=== PATIENT | male | born 1975 | race Caucasian/White ===

== ENCOUNTER 2017-06-12 09:34 | Inpatient (IN) | payer OTHER ==
[2017-06-12] MEDS ORDERED: HYDROmorphone 1 MG/ML 1 ML SYRINGE IVP STA (10:07)
[2017-06-12] MEDS ORDERED: IV VANCOMYCIN PER PHARMACY 1 EACH MISC MISCELLANE PRN (10:07)
[2017-06-12] MEDS ORDERED: ONDANSETRON 4 MG/2 ML VIAL IVP STA (10:07)
[2017-06-12] MEDS ORDERED: SODIUM CHLORIDE 0.9% 1,000 ML IV STA ×2 (10:07)
[2017-06-12] MEDS ORDERED: VANCOMYCIN 1,500 MG in SODIUM CHLORIDE 0.9% 250 ML IVPB STA (10:15)
[2017-06-12 10:48] LABS: Basophils # (A) 0.1 k/uL (0-0.2); Basophils % (A) 0 %; CH 31.7; CHCM 33.6; Eosinophils # (A) 0.1 k/uL (0-0.7); Eosinophils % (A) 0 %; HCT 43.4 % (39.0-53.0); HDW 2.19; HGB 14.5 gm/dL (13.0-17.5); Luc # (Auto) 0.16; Luc % (Auto) 1; Lymphocytes # (A) 1.1 k/uL (1.0-4.8); Lymphocytes % (A) 5 %; MCH 31.5 pg (25.0-35.0); MCHC 33.3 g/dL (31.0-37.0); MCV 94.6 fL (80.0-100.0); Mean Platelet Volume 8.3; Monocytes # (A) 0.7 k/uL (0-1.0); Monocytes % (A) 3 %; Neutrophils # (A) 19.8 k/uL (1.3-7.7); Neutrophils % (A) 90 %; RBC 4.59 m/uL (4.30-5.90); RDW 13.1 % (11.5-15.5); WBC 21.9 k/uL (3.8-10.6); WBC (Perox) 20.54
[2017-06-12] MEDS ORDERED: NALOXONE 0.4 MG/ML 1 ML VIAL IV PRN (10:53)
[2017-06-12] MEDS ORDERED: ONDANSETRON 4 MG/2 ML VIAL IVP PRN (10:53)
--- NOTE | 2017-06-12 10:53 | ED ---
General Adult HPI - General Chief complaint: Skin/Abscess/Foreign Body Stated complaint: bug bite infection Time Seen by Provider: 06/12/17 09:46 Source: patient, RN notes reviewed Mode of arrival: ambulatory Limitations: no limitations - History of Present Illness Initial comments: Patient is a 42-year-old male who presents emergency room today with chief complaint of infection to the right lower leg. He does admit that started for 5 days ago as a small what appeared to be pimple to the right side. He states tried to pop this. States became more inflamed swollen. He states he went to [facility] 2 days ago had all shots obtained which was negative. He states he was started on antibiotics clindamycin. He states that it has gotten worse. He states there is more swelling and now some drainage coming from the wound area. Patient admits to pain locally. He denies any other complaints symptoms. Patient denies any recent fever, chills, shortness of breath, chest pain, back pain, abdominal pain, nausea or vomiting, numbness or tingling, dysuria or hematuria, constipation or diarrhea, headaches or visual changes, or any other complaints. - Related Data Home Medications Medication Instructions Recorded Confirmed Acetaminophen [Tylenol Extra 2,000 mg PO DAILY PRN 06/12/17 06/12/17 Strength] Clindamycin HCl [Cleocin] 150 mg PO TID 06/12/17 06/12/17 Ibuprofen [Motrin] 600 mg PO Q4HR PRN 06/12/17 06/12/17 Allergies Allergy/AdvReac Type Severity Reaction Status Date / Time No Known Allergies Allergy Verified 06/12/17 10:45 Review of Systems ROS Statement: Those systems with pertinent positive or pertinent negative responses have been documented in the HPI. ROS Other: All systems not noted in ROS Statement are negative. Past Medical History Past Medical History: GERD/Reflux Additional Past Medical History / Comment(s): back pain History of Any Multi-Drug Resistant Organisms: None Reported Past Surgical History: No Surgical Hx Reported Past Psychological History: No Psychological Hx Reported Smoking Status: Current every day smoker Past Alcohol Use History: Occasional Past Drug Use History: None Reported General Exam - General Exam Comments Initial Comments: General: The patient is awake and alert, in no distress, and does not appear acutely ill. Eye: Pupils are equal, round and reactive to light, extra-ocular movements are intact. No nystagmus. There is normal conjunctiva bilaterally. No signs of icterus. Ears, nose, mouth and throat: There are moist mucous membranes and no oral lesions. Neck: The neck is supple, there is no tenderness or JVD. Cardiovascular: There is a regular rate and rhythm. No murmur, rub or gallop is appreciated. Respiratory: Lungs are clear to auscultation, respirations are non-labored, breath sounds are equal. No wheezes, stridor, rales, or rhonchi. Musculoskeletal: Normal ROM, no tenderness. Strength 5/5. Sensation intact. Pulses equal bilaterally 2+. Neurological: A&O x 3. CN II-XII intact, There are no obvious motor or sensory deficits. Coordination appears grossly intact. Speech is normal. Skin: He does have moderate swelling to the right lower extremity. There is an ulcerated area to the lateral aspect of the right calf. There is some purulent drainage coming from the site. There is firm on patient. Increased warmth and tenderness on exam. Psychiatric: Cooperative, appropriate mood & affect, normal judgment. Limitations: no limitations Course Vital Signs 06/12/17 06/12/17 09:36 10:28 Temperature 99.8 F H Pulse Rate 98 97 Respiratory 20 18 Rate Blood Pressure 142/84 137/78 O2 Sat by Pulse 98 98 Oximetry Medical Decision Making - Medical Decision Making Patient has been on antibiotics: Mycins the past 2 days with no improvement. He states symptoms are increasing getting worse. Patient will be started on vancomycin here in emergency room. There is no sign of sepsis. Case discussed in detail with attending physician Dr. Santiago. Disposition Clinical Impression: Cellulitis and abscess of leg Disposition: ADMITTED IP TO THIS HOSP Condition: Stable Referrals: None,Stated [Primary Care Provider] - 1-2 days Time of Disposition: 10:42
[2017-06-12 11:02] LABS: ALT 39 U/L (21-72); AST 22 U/L (17-59); Alkaline Phosphatase 108 U/L (38-126); Anion Gap 8 mmol/L; Blood Urea Nitrogen 25 mg/dL (9-20); Calcium 9.2 mg/dL (8.4-10.2); Carbon Dioxide 26 mmol/L (22-30); Chloride 104 mmol/L (98-107); Glucose 95 mg/dL (74-99); Non-African American GFR(MDRD) >60 (>60 ml/min/1.73 sqM); Potassium 4.4 mmol/L (3.5-5.1); Sodium 138 mmol/L (137-145); Total Bilirubin 1.2 mg/dL (0.2-1.3); Total Protein 7.1 g/dL (6.3-8.2)
[2017-06-12] MEDS: HYDROcodone/APAP 5-325MG 1 EACH TAB PO PRN (11:37)
[2017-06-12] MEDS ORDERED: CALCIUM CARBONATE 500 MG CHEWABLE PO PRN (13:43)
[2017-06-12] MEDS: HYDROmorphone 1 MG/ML 1 ML SYRINGE IV PRN ×4 (13:59→22:09)
[2017-06-12] MEDS: ACETAMINOPHEN TAB 325 MG TAB PO PRN (15:23)
[2017-06-12] MEDS ORDERED: SODIUM CHLORIDE 0.9% 2,000 ML IV ONE (15:38)
[2017-06-12] MEDS ORDERED: RX INFO: IV CONTRAST WAS GIVEN 1 EACH MISC MISCELLANE PRN (15:45)
[2017-06-12] MEDS: SODIUM CHLORIDE 0.9% 1,000 ML IV SCH ×3 (15:52→21:05)
[2017-06-12] MEDS ORDERED: ACETAMINOPHEN TAB 325 MG TAB PO STA (15:53)
--- NOTE | 2017-06-12 17:09 | CT ---
EXAMINATION TYPE: CT lower extremity RT w con DATE OF EXAM: 06/12/2017 COMPARISON: NONE HISTORY: Open wound with swelling and redness to right tib-fib. CT DLP: 832.1 mGycm Automated exposure control for dose reduction was used. CONTRAST: Performed with IV Contrast, patient injected with 100 mL of Omnipaque 300. FINDINGS: Multiple axial sections were obtained from the distal femur to the bottom of the calcaneus with intra venous contrast. There is subcutaneous edema throughout the right lower leg. This extends to the lateral ankle. I see no focal bone destruction. There is no evidence of a fracture. The tibia and fibula appear inta ct. Joint spaces are fairly normal. I see no pathologic enhancement. IMPRESSION: EXTENSIVE SUBCUTANEOUS EDEMA. NO DISCRETE DRAINABLE FLUID COLLECTION SEEN. I DO NOT SEE EVIDENCE OF A N ABSCESS. THIS IS CONSISTENT WITH CELLULITIS. NO SIGN OF OSTEOMYELITIS.
[2017-06-12] MEDS: PIPERACILLIN-TAZOBACTAM 3.375 GM in DEXTROSE/WATER 1 50ML.BAG IVPB SCH ×2 (17:11→23:55)
[2017-06-12] MEDS: IBUPROFEN 600 MG TAB PO PRN (17:11)
[2017-06-12] MEDS: ALPRAZolam 0.25 MG TAB PO PRN (17:29)
[2017-06-12] MEDS: VANCOMYCIN 1,250 MG in SODIUM CHLORIDE 0.9% 250 ML IVPB SCH (18:11)
[2017-06-12 19:31] LABS: Basophils # (A) 0.1 k/uL (0-0.2); Basophils % (A) 0 %; CHCM 32.8; Eosinophils # (A) 0.3 k/uL (0-0.7); Eosinophils % (A) 1 %; HCT 40.5 % (39.0-53.0); HDW 2.13; HGB 13.4 gm/dL (13.0-17.5); Immature Gran Flag Marked; Luc # (Auto) 0.24; Luc % (Auto) 1; Lymphocytes # (A) 1.6 k/uL (1.0-4.8); Lymphocytes % (A) 7 %; MCH 31.5 pg (25.0-35.0); MCHC 33.1 g/dL (31.0-37.0); MCV 94.9 fL (80.0-100.0); Mean Platelet Volume 7.5; Monocytes # (A) 0.8 k/uL (0-1.0); Monocytes % (A) 4 %; Neutrophils % (A) 87 %; RBC 4.26 m/uL (4.30-5.90); RDW 12.5 % (11.5-15.5); WBC 21.9 k/uL (3.8-10.6); WBC (Perox) 23.44
[2017-06-12 19:42] LABS: ALT 27 U/L (21-72); AST 21 U/L (17-59); Alkaline Phosphatase 96 U/L (38-126); Anion Gap 7 mmol/L; Blood Urea Nitrogen 17 mg/dL (9-20); Calcium 8.2 mg/dL (8.4-10.2); Carbon Dioxide 22 mmol/L (22-30); Chloride 105 mmol/L (98-107); Glucose 94 mg/dL (74-99); Non-African American GFR(MDRD) >60 (>60 ml/min/1.73 sqM); Potassium 4.4 mmol/L (3.5-5.1); Sodium 134 mmol/L (137-145); Total Bilirubin 0.6 mg/dL (0.2-1.3)
[2017-06-12 19:51] LABS: Manual Review Performed
[2017-06-12 19:52] LABS: INR 1.2 (<1.2); Partial Thromboplastin Time 30.8 sec (22.0-30.0); Prothrombin Time 12.2 sec (9.0-12.0)
[2017-06-12] MEDS: HEPARIN SODIUM,PORCINE 5,000 UNIT/ML 1 ML VIAL SQ SCH (19:59)
[2017-06-12] MEDS: NICOTINE 21MG/24HR PATCH TRANSDERM SCH (19:59)
[2017-06-12 20:10] LABS: Appearance,Urine Clear (Clear); Bilirubin,Urine 1+ (Negative); Glucose,Urine (UA) Negative (Negative); Ketones,Urine Negative (Negative); Leukocyte Esterase,Urine Negative (Negative); Nitrite,Urine Negative (Negative); Protein,Urine Negative (Negative); Specific Gravity,Urine 1.022 (1.001-1.035); UA Billing (MACRO vs. MICRO) CHEM; Urobilinogen,Urine <2.0 mg/dL (<2.0)
[2017-06-13] MEDS: HYDROcodone/APAP 5-325MG 1 EACH TAB PO PRN ×7 (00:02→22:56)
[2017-06-13] MEDS: PANTOPRAZOLE 40 MG TABLET PO SCH ×3 (00:35→19:58)
[2017-06-13] MEDS: HYDROmorphone 1 MG/ML 1 ML SYRINGE IV PRN ×8 (01:30→23:34)
[2017-06-13] MEDS: SODIUM CHLORIDE 0.9% 1,000 ML IV SCH ×4 (01:31→21:38)
[2017-06-13] MEDS: ACETAMINOPHEN TAB 325 MG TAB PO PRN ×2 (03:42→21:36)
[2017-06-13] MEDS: VANCOMYCIN 1,250 MG in SODIUM CHLORIDE 0.9% 250 ML IVPB SCH ×2 (05:55→18:00)
[2017-06-13 06:00] LABS: Basophils # (A) 0.1 k/uL (0-0.2); Basophils % (A) 0 %; CH 31.3; CHCM 32.3; Eosinophils # (A) 0.2 k/uL (0-0.7); Eosinophils % (A) 1 %; HCT 40.7 % (39.0-53.0); HDW 2.13; HGB 13.1 gm/dL (13.0-17.5); Luc % (Auto) 1; Lymphocytes # (A) 1.9 k/uL (1.0-4.8); Lymphocytes % (A) 8 %; MCH 31.4 pg (25.0-35.0); MCHC 32.2 g/dL (31.0-37.0); MCV 97.4 fL (80.0-100.0); Mean Platelet Volume 8.5; Monocytes # (A) 0.9 k/uL (0-1.0); Monocytes % (A) 4 %; Neutrophils # (A) 19.8 k/uL (1.3-7.7); Neutrophils % (A) 85 %; RBC 4.18 m/uL (4.30-5.90); RDW 13.5 % (11.5-15.5); WBC 23.3 k/uL (3.8-10.6); WBC (Perox) 23.36
[2017-06-13 06:12] LABS: Anion Gap 7 mmol/L; Blood Urea Nitrogen 14 mg/dL (9-20); Calcium 8.5 mg/dL (8.4-10.2); Carbon Dioxide 19 mmol/L (22-30); Chloride 109 mmol/L (98-107); Glucose 84 mg/dL (74-99); Non-African American GFR(MDRD) >60 (>60 ml/min/1.73 sqM); Potassium 4.5 mmol/L (3.5-5.1); Sodium 135 mmol/L (137-145)
--- NOTE | 2017-06-13 08:07 | HP ---
DATE OF SERVICE: 06/12/2017 CHIEF COMPLAINTS: Pain and swelling and cellulitis of the right leg. HISTORY OF PRESENT ILLNESS: This 42-year-old gentleman with past medical history of gastroesophageal reflux disease, DJD, history of back pain not being followed by primary physician in the outpatient setting, working in [employer]. The patient noted pain and swelling in the right leg and patient went to local doctor and was given antibiotics. Because of lack of improvement the patient came to [facility] and admitted for further evaluation and treatment. The patient had shaking chills. The patient also was found to be febrile at 101.8. There is no history of history of headache, loss of consciousness or seizures. PAST MEDICAL HISTORY: History of DJD, gastroesophageal reflux disease, history of nicotine dependence. Medications prior to admission include home medications: 1. Cleocin 150 mg t.i.d. 2. Tylenol 2000 daily p.r.n 3. Motrin 600 mg q.4 p.r.n ALLERGIES: None. FAMILY HISTORY: No history of heart disease or strokes in the family. SOCIAL HISTORY: History of smoking on a daily basis. REVIEW OF SYSTEMS: ENT: No diminished hearing or vision. CARDIOVASCULAR: No angina. RESPIRATORY: No cough. GI: No nausea. : No dysuria. NERVOUS SYSTEM: No numbness or weakness. ALLERGY/IMMUNOLOGY: No asthma or hayfever. MUSCULOSKELETAL: As mentioned earlier. HEMATOLOGY/ONCOLOGY: No history of anemia. ENDOCRINE: No history of diabetes or hypothyroidism. CONSTITUTIONAL: As mentioned earlier. DERMATOLOGY: Negative. RHEUMATOLOGY: Negative. PSYCHIATRY: As mentioned earlier. PHYSICAL EXAMINATION: The patient is alert and oriented x3. Pulse is 99, blood pressure 118/77, respirations 16, temperature 99.5, T-max 101.8, pulse ox 97% on room air. HEENT: Conjunctivae normal. NECK: No jugular venous distention. CARDIOVASCULAR: S1, S2. RESPIRATORY: Breath sounds diminished at the bases. No rhonchi, no crackles. ABDOMEN: Soft, nontender, no mass palpable. LEGS: Right leg cellulitis and abscess present. NERVOUS SYSTEM: No focal deficits. LABS: WBC 212, hemoglobin 14.5. ASSESSMENT: 1. Acute right leg cellulitis and as well as abscess with sepsis. 2. Increased WBC. 3. History of nicotine dependence. 4. History of gastroesophageal reflux disease. 5. History of degenerative joint disease. 6. History of back pain. RECOMMENDATIONS AND DISCUSSION: In this 42-year-old gentleman who presented with multiple complex medical issues, we will continue the current medications. Continue symptomatic treatment. Broad-spectrum IV antibiotics, pain medications , IV fluids. Monitor closely. Cultures. Orthopedic and Infectious Disease evaluation. CT scan has been ordered. Guarded prognosis because of multiple complex medical issues. Further recommendations to follow. [facility]
[2017-06-13] MEDS: NICOTINE 21MG/24HR PATCH TRANSDERM SCH (08:18)
[2017-06-13] MEDS: HEPARIN SODIUM,PORCINE 5,000 UNIT/ML 1 ML VIAL SQ SCH ×2 (08:20→19:58)
--- NOTE | 2017-06-13 08:57 | P.CNOR ---
History of Present Illness - HPI Consult date: 06/13/17 History of present illness: This is a 42-year-old male who is admitted to [facility] with infection to his right lower extremity. He states that on Saturday, June 07 he noticed a pimple-like lesion on the lateral aspect of his right lower leg just below the knee. He states that he did express some purulent material from this area. He states that the next day he had increased swelling and tenderness. He was seen in the emergency department at [facility]. He was placed on antibiotic and discharged home. He states that his symptoms became progressively worse over the next couple of days. 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 He presented to the emergency department yesterday. He is admitted for IV antibiotics as well as orthopedic and infectious disease evaluation. Past Medical History Past Medical History: GERD/Reflux, Osteoarthritis (OA) Additional Past Medical History / Comment(s): back pain History of Any Multi-Drug Resistant Organisms: None Reported Past Surgical History: No Surgical Hx Reported Additional Past Surgical History / Comment(s): Colonoscopy x2 and EGD Past Psychological History: No Psychological Hx Reported Smoking Status: Current every day smoker Past Alcohol Use History: Occasional Past Drug Use History: None Reported - Past Family History Mother History Unknown: Yes Medications and Allergies Home Medications Medication Instructions Recorded Confirmed Type Acetaminophen [Tylenol Extra 2,000 mg PO DAILY PRN 06/12/17 06/12/17 History Strength] Clindamycin HCl [Cleocin] 150 mg PO TID 06/12/17 06/12/17 History Ibuprofen [Motrin] 600 mg PO Q4HR PRN 06/12/17 06/12/17 History Allergies Allergy/AdvReac Type Severity Reaction Status Date / Time No Known Allergies Allergy Verified 06/12/17 10:45 Physical Examination This is a pleasant 42-year-old male in no acute distress. He is alert and oriented 3. His is present at bedside. Exam of the right lower extremity reveals a wound about the lateral aspect of the lower leg just distal to the knee joint. He has significant erythema and generalized edema to the lower leg, which extends up into the knee and thigh. There is no obvious joint effusion. He does have some pain with knee flexion secondary to the swelling in the thigh and lower leg. There is no active drainage from the wound at this time. There is significant pain with palpation of the calf and lower leg. He has full foot and ankle motion without difficulty. Neurovascular status to the lower extremity is grossly intact. Results Microbiology is pending, preliminary Gram stain shows gram-positive cocci. - Labs Labs: Abnormal Lab Results - Last 24 Hours (Table) 06/12/17 06/12/17 06/12/17 Range/Units 10:30 10:30 19:14 WBC 21.9 H 21.9 H (3.8-10.6) k/uL RBC 4.26 L (4.30-5.90) m/uL Neutrophils # 19.8 H 19.0 H (1.3-7.7) k/uL PT (9.0-12.0) sec INR (<1.2) APTT (22.0-30.0) sec Sodium (137-145) mmol/L Chloride (98-107) mmol/L Carbon Dioxide (22-30) mmol/L BUN 25 H (9-20) mg/dL Calcium (8.4-10.2) mg/dL Total Protein (6.3-8.2) g/dL Albumin (3.5-5.0) g/dL Urine Bilirubin (Negative) 06/12/17 06/12/17 06/12/17 Range/Units 19:14 19:14 19:55 WBC (3.8-10.6) k/uL RBC (4.30-5.90) m/uL Neutrophils # (1.3-7.7) k/uL PT 12.2 H (9.0-12.0) sec INR 1.2 H (<1.2) APTT 30.8 H (22.0-30.0) sec Sodium 134 L (137-145) mmol/L Chloride (98-107) mmol/L Carbon Dioxide (22-30) mmol/L BUN (9-20) mg/dL Calcium 8.2 L (8.4-10.2) mg/dL Total Protein 6.0 L (6.3-8.2) g/dL Albumin 3.0 L (3.5-5.0) g/dL Urine Bilirubin 1+ H (Negative) 06/13/17 06/13/17 Range/Units 05:31 05:31 WBC 23.3 H (3.8-10.6) k/uL RBC 4.18 L (4.30-5.90) m/uL Neutrophils # 19.8 H (1.3-7.7) k/uL PT (9.0-12.0) sec INR (<1.2) APTT (22.0-30.0) sec Sodium 135 L (137-145) mmol/L Chloride 109 H (98-107) mmol/L Carbon Dioxide 19 L (22-30) mmol/L BUN (9-20) mg/dL Calcium (8.4-10.2) mg/dL Total Protein (6.3-8.2) g/dL Albumin (3.5-5.0) g/dL Urine Bilirubin (Negative) Microbiology - Last 24 Hours (Table) 06/12/17 19:55 Urine Culture - Preliminary Urine,Voided 06/12/17 10:30 Gram Stain - Preliminary Leg - Right Wound Culture - Preliminary H & H 06/12/17 06/12/17 06/13/17 Range/Units 10:30 19:14 05:31 Hgb 14.5 13.4 13.1 (13.0-17.5) gm/dL Hct 43.4 40.5 40.7 (39.0-53.0) % Coagulation 06/12/17 Range/Units 19:14 INR 1.2 H (<1.2) Result Diagrams: 06/13/17 05:31 06/13/17 05:31 Assessment and Plan (1) Cellulitis and abscess of leg Status: Acute Plan: The clinical findings are discussed the patient and his . I've ordered K pad for moist heat today. I will make him nothing by mouth after midnight tonight for possible incision and drainage tomorrow. We will await recommendations by infectious disease. I also ordered a venous Doppler to assess for DVT. We will continue to follow.
--- NOTE | 2017-06-13 09:52 | US ---
EXAMINATION TYPE: US venous doppler duplex LE RT DATE OF EXAM: 06/13/2017 9:31 AM COMPARISON: NONE CLINICAL HISTORY: R/O DVT RLE. Bug bite became infected and patient has fever, with red, hot, swollen right leg, no h/o dvt SIDE PERFORMED: Right TECHNIQUE: The lower extremity deep venous system is examined utilizing real time linear array sonog allison with graded compression, doppler sonography and color-flow sonography. VESSELS IMAGED: External Iliac Vein (EIV) Common Femoral Vein Deep Femoral Vein Greater Saphenous Vein * Femoral Vein Popliteal Vein Small Saphenous Vein * Proximal Calf Veins (* superficial vessels) Right Leg: Appears negative for DVT IMPRESSION: Although the examination is slightly limited due to patient inability to tolerate full c ompression there is no evidence for deep venous thrombosis of the right lower extremity.
[2017-06-13] MEDS: PIPERACILLIN-TAZOBACTAM 3.375 GM in DEXTROSE/WATER 1 50ML.BAG IVPB SCH (11:55)
[2017-06-13] MEDS: IBUPROFEN 600 MG TAB PO PRN (11:59)
[2017-06-13] MEDS: CLINDAMYCIN 900 MG in DEXTROSE 5% IN WATER 50 ML IVPB SCH ×2 (23:34)
[2017-06-14] MEDS: HYDROmorphone 1 MG/ML 1 ML SYRINGE IV PRN ×3 (02:39→08:17)
[2017-06-14] MEDS: SODIUM CHLORIDE 0.9% 1,000 ML IV SCH ×3 (02:45→18:39)
[2017-06-14] MEDS: LACTATED RINGERS 1,000 ML IV SCH (02:45)
[2017-06-14] MEDS ORDERED: VANCOMYCIN TROUGH DUE 1 EACH MISC MISCELLANE ONE (05:00)
[2017-06-14] MEDS ORDERED: fentaNYL (PF) 50 MCG/ML 2 ML AMP IV PRN (05:00)
[2017-06-14] MEDS ORDERED: LIDOCAINE 1% 20 ML VIAL (10MG/ML) FOR IV START INTRADERMA PRN (05:00)
[2017-06-14 06:15] LABS: Basophils # (A) 0.1 k/uL (0-0.2); Basophils % (A) 0 %; CH 30.7; CHCM 32.9; Eosinophils # (A) 0.3 k/uL (0-0.7); Eosinophils % (A) 2 %; HCT 36.1 % (39.0-53.0); HDW 2.23; HGB 12.4 gm/dL (13.0-17.5); Luc # (Auto) 0.24; Luc % (Auto) 2; Lymphocytes # (A) 1.6 k/uL (1.0-4.8); Lymphocytes % (A) 10 %; MCH 32.3 pg (25.0-35.0); MCHC 34.4 g/dL (31.0-37.0); MCV 93.9 fL (80.0-100.0); Mean Platelet Volume 8.4; Monocytes # (A) 0.6 k/uL (0-1.0); Monocytes % (A) 4 %; Neutrophils # (A) 13.7 k/uL (1.3-7.7); Neutrophils % (A) 83 %; RBC 3.85 m/uL (4.30-5.90); RDW 12.5 % (11.5-15.5); WBC 16.4 k/uL (3.8-10.6)
[2017-06-14] MEDS: VANCOMYCIN 1,250 MG in SODIUM CHLORIDE 0.9% 250 ML IVPB SCH ×3 (06:16→22:01)
[2017-06-14 06:21] LABS: Anion Gap 8 mmol/L; Blood Urea Nitrogen 12 mg/dL (9-20); Calcium 8.3 mg/dL (8.4-10.2); Carbon Dioxide 20 mmol/L (22-30); Chloride 107 mmol/L (98-107); Glucose 90 mg/dL (74-99); Non-African American GFR(MDRD) >60 (>60 ml/min/1.73 sqM); Potassium 4.9 mmol/L (3.5-5.1); Sodium 135 mmol/L (137-145)
--- NOTE | 2017-06-14 07:52 | PN ---
DATE OF SERVICE: 06/13/2017 This is a 42-year-old gentleman who was admitted with right leg cellulitis, is being evaluated by Orthopedic Surgery, also. Incision and drainage being planned today. The CAT scan showed no evidence of abscess or osteomyelitis. The patient had evidence of severe sepsis. Ultrasound is negative with DVT. No chest pain or palpitation. PAST MEDICAL HISTORY: Reviewed. REVIEW OF SYSTEM: CARDIOVASCULAR: No angina or palpitation. RESPIRATORY: As mentioned earlier. GI: As mentioned earlier. : No dysuria. NERVOUS SYSTEM: As mentioned earlier. MUSCULOSKELETAL: As mentioned earlier. DERMATOLOGY: As mentioned earlier. Current medications are Tylenol 650 q.6 p.r.n., [place] 5 mg q.4 p.r.n., Xanax 0.5 t.i.d., heparin 5 subQ b.i.d., Dilaudid 4 mg q.3 p.r.n., Motrin p.r.n., vancomycin, Narcan, Habitrol 21 daily, Zofran, Protonix, vancomycin. PHYSICAL EXAM: The patient is alert and oriented x3. Pulse is 106, blood pressure 118/60, respirations 14, temperature 101.2, pulse ox 98% on room air. HEENT: Conjunctivae normal. NECK: No jugular venous distension. CARDIOVASCULAR: S1, S2, muffled. LUNGS: Clear to auscultation. ABDOMEN: Soft, nontender, no mass palpable. LEGS: Right leg significant swelling and pain and tenderness present with a purulent area in the right lateral aspect close to the knee. NERVOUS SYSTEM: Higher functions as mentioned, moves all 4 limbs, no focal motor deficits. LYMPHATICS: No lymph node enlargement in the neck, axillae or groin. LABS: WBC is 23.3, sodium 135. ASSESSMENT: 1. Acute right leg cellulitis with severe sepsis present on admission. 2. Increased WBC. 3. History of nicotine dependence. 4. Gastroesophageal reflux disease. 5. Degenerative disc disease. 6. History of back pain. RECOMMENDATION: Recommend to continue with the current medication, continue with the broad spectrum IV antibiotics. Follow closely with orthopedic surgery. Guarded prognosis. Further recommendations to follow. Follow the cultures. Infectious Disease has been consulted. MERYL
--- NOTE | 2017-06-14 08:33 | P.PN ---
Subjective Principal diagnosis: Cellulitis RLE This is a 42-year-old male with history of a possible insect bite to the right lower leg. His symptoms have progressed since yesterday. He is had increased pain and swelling to the leg which is now extending up into the thigh. He had a temperature of 102 last night. We are planning debridement of the lateral aspect of the lower leg today. Dr. Corey is managing antibiotics. Objective - Vital Signs Vital signs: Vital Signs Temp 99.8 F H 06/14/17 03:09 Pulse 97 06/14/17 03:09 Resp 18 06/14/17 03:09 BP 118/66 06/14/17 03:09 Pulse Ox 99 06/14/17 03:09 Intake & Output 06/13/17 06/14/17 06/14/17 18:59 06:59 18:59 Intake Total 600 1710 Output Total 500 900 Balance 100 810 Weight 75.8 kg 76 kg Intake: IV 1250 Piperacillin-Tazobactam 3 50 .375 gm In Dextrose/Water 1 50ml.bag @ 12.5 mls/hr IVPB Q8HR [facility] Rx#: [id number] Sodium Chloride 0.9% 1, 1200 000 ml @ 150 mls/hr IV . Q6H40M [facility] Rx#:[id number] Intake, IV Titration 160 Amount Clindamycin 900 mg In 100 Dextrose 5% in Water 50 ml @ 100 mls/hr IVPB Q8HR [facility] Rx#:[id number] Lactated Ringers 1,000 ml 60 @ 20 mls/hr IV .Q24H [facility] Rx#:[id number] Oral 600 300 Output: Urine 500 900 Other: # Voids 2 1 # Bowel Movements 1 - Exam This is a 42-year-old male in mild distress due to pain. I am unable to palpate the leg without significant pain. The patient is able to wiggle his toes and move his foot and ankle on his own with minimal discomfort. The area of eschar about the lateral lower leg is a bit larger today. The erythema has extended up into the medial thigh towards the groin. There are no new open wounds and no drainage. He is able to lift the leg off the bed and an actively flex the knee to about 45. The patient is intact to the foot and toes. - Labs CBC & Chem 7: 06/14/17 05:38 06/14/17 05:38 Labs: Abnormal Lab Results - Last 24 Hours (Table) 06/14/17 06/14/17 Range/Units 05:38 05:38 WBC 16.4 H (3.8-10.6) k/uL RBC 3.85 L (4.30-5.90) m/uL Hgb 12.4 L (13.0-17.5) gm/dL Hct 36.1 L (39.0-53.0) % Neutrophils # 13.7 H (1.3-7.7) k/uL Sodium 135 L (137-145) mmol/L Carbon Dioxide 20 L (22-30) mmol/L Calcium 8.3 L (8.4-10.2) mg/dL Microbiology - Last 24 Hours (Table) 06/12/17 19:55 Urine Culture - Final Urine,Voided 06/12/17 19:35 Blood Culture - Preliminary Blood No Growth after 24 hours 06/12/17 19:14 Blood Culture - Preliminary Blood No Growth after 24 hours 06/12/17 10:30 Blood Culture - Preliminary Blood No Growth after 24 hours 06/12/17 10:30 Gram Stain - Preliminary Leg - Right Wound Culture - Preliminary Presumptive MRSA Assessment and Plan (1) Cellulitis and abscess of leg Status: Acute Plan: The clinical findings are discussed the patient and his . He is to continue current IV antibiotics per Dr. Corey. We're planning debridement of the wound this afternoon.
[2017-06-14] MEDS: NICOTINE 21MG/24HR PATCH TRANSDERM SCH (08:39)
[2017-06-14] MEDS: CLINDAMYCIN 900 MG in DEXTROSE 5% IN WATER 50 ML IVPB SCH ×4 (08:39→17:23)
[2017-06-14] MEDS: HEPARIN SODIUM,PORCINE 5,000 UNIT/ML 1 ML VIAL SQ SCH ×2 (08:40→20:24)
[2017-06-14] MEDS: PANTOPRAZOLE 40 MG TABLET PO SCH ×2 (08:40→18:39)
[2017-06-14] MEDS: HYDROcodone/APAP 5-325MG 1 EACH TAB PO PRN ×3 (08:53→22:17)
[2017-06-14] MEDS: ACETAMINOPHEN TAB 325 MG TAB PO PRN ×2 (08:54→20:04)
[2017-06-14] MEDS: MEPERIDINE 50 MG/ML SYRINGE IVP ONE ×2 (09:15→09:20)
--- NOTE | 2017-06-14 09:48 | CONS ---
DATE OF SERVICE: 06/13/2017 REASON FOR CONSULTATION: Right lower extremity cellulitis. HISTORY OF PRESENT ILLNESS: The patient is a 42-year-old male who did develop a pimple on his right leg below his knee area that happened last week. The patient said the pimple becomes bigger in size and becomes more pain. The patient tried to express some purulent material from this area. Subsequently increasing swelling and redness and the patient did present to the [facility] where the patient was started on oral clindamycin. The patient said he took antibiotics for the next few days, however, the leg did become more swollen, more red and painful. Pain was described as being throbbing almost 7 to 8 out of 10 and no radiation. The whole leg becomes red. Patient did have some chills, but denies any high grade fever. With this reason, the patient presented to the [facility]. Patient was evaluated by the ER physician. The patient did have a CT of the leg, which was suggestive of subcutaneous edema, but no drainable abscess. The patient was started on vancomycin and Zosyn. He did have some local wound cultures. I was asked to see the patient for further recommendation regarding antibiotic therapy. REVIEW OF SYSTEMS: CONSTITUTIONAL: Positive for weakness and chills. EYES: No complaint. ENT: No complaint. RESPIRATORY: No complaint. CARDIOVASCULAR: No complaint. GENITOURINARY: No complaint. GASTROINTESTINAL: No complaint. MUSCULOSKELETAL: No complaint. INTEGUMENTARY: As per HPI. PSYCHOLOGICAL: No complaint. ENDOCRINE: No complaint. NEUROLOGIC: No complaint. PAST MEDICAL HISTORY: Gastroesophageal reflux disease, osteoarthritis, chronic back pain. PAST SURGICAL HISTORY: Colonoscopy and EGD. SOCIAL HISTORY: The patient is a current everyday smoker and occasionally drinks. No drug use. FAMILY HISTORY: No pertinent findings were noticed. ALLERGIES: No known drug allergies. Medications include the patient is currently on vancomycin pharmacy to dose. He is on Zosyn, Tylenol, [place], Xanax, Tums, heparin, Dilaudid, Motrin, Narcan, nicotine patch, Zofran, Protonix. On examination, blood pressure is 119/66 with a pulse of 106, temperature 101.2. He is 98% on room air. General description is a middle-age male, lying in bed in no distress. No tachypnea or accessory muscles of respiratory use. HEENT examination showed no pallor or scleral icterus. Oral mucous membranes are dry. NECK: Trachea central. No thyromegaly. LUNGS: Unlabored breathing. Clear to auscultation anteriorly. No wheeze or crackles. HEART: S1 and S2. Regular rate and rhythm. ABDOMEN: Soft, no tenderness. Right leg did have significant swelling and redness with small blister with some blackish surrounding area, minimal drainage. NEUROLOGICALLY: The patient awake, alert, oriented x3. Mood and affect normal. LABS: Hemoglobin is 13.1, white count 23.3 with a BUN 14 and creatinine 0.94. Did have a blood culture obtained, which is currently pending. Wound culture with presumptive MRSA. DIAGNOSTIC IMPRESSION AND PLAN: Patient with sepsis and the patient did have fever, elevated white count, tachycardia and meeting criteria for systemic inflammatory response syndrome. Source is the right lower extremity wound and cellulitis. Failing outpatient clindamycin therapy. PLAN: 1. Vancomycin pharmacy to dose, target of 15, will continue. Will discontinue the Zosyn ( ) gram negative ( ). 2. Await orthopedic evaluation and possible drainage of this area. 3. We will follow up on his clinical condition and culture to further adjust medication if needed. Thank you for this consultation. Will follow this patient along with you. MERYL
--- NOTE | 2017-06-14 10:02 | XR ---
EXAMINATION TYPE: XR tibia fibula RT DATE OF EXAM: 06/14/2017 COMPARISON: NONE HISTORY: Severe cellulitis TECHNIQUE: 2 view right tibia and fibula FINDINGS: No acute fractures are evident. The soft tissues appear within normal limits. No radiopaque foreign bodies are evident. IMPRESSION: 1. Normal right tibia and fibula
[2017-06-14] MEDS ORDERED: IV FLUID CONTINUATION 1,000 ML IV ONE (11:56)
[2017-06-14] MEDS ORDERED: ONDANSETRON 4 MG/2 ML VIAL IVP ONE (12:09)
[2017-06-14] MEDS ORDERED: fentaNYL (PF) 50 MCG/ML 2 ML AMP ONE (12:18)
[2017-06-14] MEDS ORDERED: SUCCINYLCHOLINE CHLORIDE 100 MG/5 ML SYR IV ONE (12:18)
[2017-06-14] MEDS ORDERED: LIDOCAINE 1% INJ 10MG/ML (20 ML MDV) ONE (12:18)
[2017-06-14] MEDS ORDERED: PROPOFOL 10 MG/ML 20 ML VIAL IV ONE (12:18)
[2017-06-14] MEDS ORDERED: MIDAZOLAM 2 MG/2 ML VIAL ONE (12:18)
[2017-06-14] MEDS ORDERED: ceFAZolin 3,000 MG in SODIUM CHLORIDE 0.9% IRRIGATIO 3,000 ML IRRIGATION ONE (12:39)
[2017-06-14] MEDS ORDERED: ONDANSETRON 4 MG/2 ML VIAL IVP PRN (13:05)
[2017-06-14] MEDS ORDERED: HYDROmorphone 1 MG/ML 1 ML SYRINGE IVP PRN (13:05)
[2017-06-14] MEDS ORDERED: SENNOSIDES-DOCUSATE SODIUM 1 EACH TAB PO PRN (13:05)
[2017-06-14] MEDS ORDERED: diphenhydrAMINE 25 MG CAP PO PRN (13:05)
[2017-06-14] MEDS ORDERED: HYDROcodone/APAP 5-325MG 1 EACH TAB PO PRN (13:05)
[2017-06-14] MEDS: HYDROmorphone 1 MG/ML 1 ML SYRINGE IVP PRN ×4 (14:15→23:17)
--- NOTE | 2017-06-14 16:34 | P.OP ---
Date of Procedure: 06/14/17 Preoperative Diagnosis: Postoperative Diagnosis: Procedure(s) Performed: PREOPERATIVE DIAGNOSES: 1. Right leg subcutaneous abscess 2. Lymphangitis along lateral aspect of knee and distal thigh POSTOPERATIVE DIAGNOSES: 1. Right leg subcutaneous abscess 2. Lymphangitis along lateral aspect of knee and distal thigh PROCEDURES PERFORMED: 1. Right leg subcutaneous abscess incision and drainage 2. Packing of wound with moistened iodoform gauze ANESTHESIA: Gen. PUBLIC HEALTH EPIDEMIOLOGIST: Molly Jones PA-C (assistance with exposure, hemostasis, retraction, fixation, closure, dressing, splint) COMPLICATIONS: None ESTIMATED BLOOD LOSS: Less than 20 mL. DISPOSITION: To post-anesthesia care unit INDICATIONS: Harsha is a 42-year-old male with a history of abscess involving the right lower extremity. He presents to the operating room for incision and drainage. Consent has been obtained after discussion of the risks of incision and drainage of this abscess as being inclusive of, but not limited to: Bleeding , further infection, scarring, discomfort, blood vessel and/or nerve damage, compartment syndrome, failure to relieve symptoms, persistence or recurrence and /or worsening of symptoms or problems, need for further surgery, blood clot, pulmonary embolism, , anesthesia risks, and other risks. PROCEDURE: After appropriate consent was obtained, the patient was taken to the operating room placed in the supine position. Anesthesia was initiated, and after confirmation of adequate anesthesia, the patient was carefully positioned. Care was taken to make sure that all pressure points were adequately padded. Prepping and draping were completed in the usual aseptic fashion using ChloraPrep. Timeout was called, confirming patient identity, side , and procedure. Incision approximately 3 inches in size was created along the abscess, which was located on the lateral aspect of the leg. Incision was carried down just through skin and into subcu tissues where was noted that there was gross pus. The gross pus was removed by extending the incision and gently spreading down to the abscess cavity. The abscess cavity was probed with manual palpation until all areas of the abscess cavity were interrogated. Cultures were taken. There did not appear to be any extension of the abscess cavity into the deep muscular fascia. Soft tissue tension visibly and palpably improved after drainage of the abscess. Pulsatile lavage was used, delivering 3 L of saline within the abscess cavity. During this time, small amount of Hibiclens solution was also applied to the wound surface, allowed to soak into the tissues for 1 minute, and then rinsed off using the pulsatile lavage. Subsequently, hemostasis was obtained using electrocautery but there was no significant bleeding present. Wound was lightly packed with moistened half- inch iodoform gauze and sterile dressing was then applied. Patient tolerated the procedure well and taken to recovery room in stable condition. Sponge counts were correct. Implants: Indications for Procedure: Operative Findings: Description of Procedure:
[2017-06-14] MEDS: PIPERACILLIN-TAZOBACTAM 3.375 GM in DEXTROSE/WATER 1 50ML.BAG IVPB SCH (16:36)
--- NOTE | 2017-06-14 18:35 | PN ---
DATE OF SERVICE: 06/14/2017 REASON FOR FOLLOW UP: Right leg abscess and cellulitis. HISTORY OF PRESENT ILLNESS: The patient did have another fever this morning. The patient has been taken to the OR and is status post drainage of the right leg abscess. The patient denies significant chest pain. No shortness of breath or cough. The pain is currently controlled. On examination, blood pressure 139/80 with a pulse of 89, temperature of 101, he is 100% on room air. GENERAL DESCRIPTION: Middle-aged male lying in bed in no distress. RESPIRATORY: Unlabored breathing. Clear to auscultation anteriorly. HEART: S1/S2 regular. ABDOMEN: Soft, nontender. EXTREMITIES: The right leg ( ) dressing. LABS: White count 15.4. BUN 20, creatinine 0.90. One culture showing in addition to MRSA, gram negative bacilli. DIAGNOSTIC IMPRESSION: Patient with right leg abscess, failing outpatient clindamycin therapy. Now the wound culture is showing a gram negative bacilli in addition to the methicillin-resistant Staphylococcus aureus. Will add Zosyn to the vancomycin regimen, discontinue the clindamycin. Further adjustment of antibiotics on the basis of his clinical response. Continue supportive care. MERYL
[2017-06-15] MEDS: PIPERACILLIN-TAZOBACTAM 3.375 GM in DEXTROSE/WATER 1 50ML.BAG IVPB SCH ×2 (00:53→10:11)
[2017-06-15] MEDS: HYDROmorphone 1 MG/ML 1 ML SYRINGE IVP PRN ×7 (02:34→23:27)
[2017-06-15] MEDS: LACTATED RINGERS 1,000 ML IV SCH ×3 (02:39→16:14)
[2017-06-15] MEDS: ALPRAZolam 0.25 MG TAB PO PRN ×2 (04:01→21:33)
[2017-06-15] MEDS: VANCOMYCIN 1,250 MG in SODIUM CHLORIDE 0.9% 250 ML IVPB SCH ×3 (05:19→21:36)
[2017-06-15] MEDS: SODIUM CHLORIDE 0.9% 1,000 ML IV SCH ×3 (05:26→13:26)
[2017-06-15] MEDS: HYDROcodone/APAP 5-325MG 1 EACH TAB PO PRN ×3 (06:37→21:33)
[2017-06-15 07:03] LABS: Basophils % (A) 0 %; CHCM 32.7; Eosinophils # (A) 0.2 k/uL (0-0.7); Eosinophils % (A) 2 %; HCT 35.1 % (39.0-53.0); HDW 2.18; HGB 11.4 gm/dL (13.0-17.5); Luc # (Auto) 0.31; Luc % (Auto) 2; Lymphocytes # (A) 1.7 k/uL (1.0-4.8); Lymphocytes % (A) 12 %; MCH 30.9 pg (25.0-35.0); MCHC 32.5 g/dL (31.0-37.0); Mean Platelet Volume 7.7; Monocytes # (A) 0.8 k/uL (0-1.0); Monocytes % (A) 6 %; Neutrophils # (A) 11.4 k/uL (1.3-7.7); Neutrophils % (A) 79 %; RBC 3.69 m/uL (4.30-5.90); RDW 12.6 % (11.5-15.5); WBC 14.4 k/uL (3.8-10.6); WBC (Perox) 14.39
[2017-06-15 07:27] LABS: Anion Gap 8 mmol/L; Blood Urea Nitrogen 11 mg/dL (9-20); Calcium 7.6 mg/dL (8.4-10.2); Carbon Dioxide 25 mmol/L (22-30); Chloride 104 mmol/L (98-107); Glucose 85 mg/dL (74-99); Non-African American GFR(MDRD) >60 (>60 ml/min/1.73 sqM); Potassium 3.7 mmol/L (3.5-5.1); Sodium 137 mmol/L (137-145)
--- NOTE | 2017-06-15 08:28 | P.PN ---
Subjective Principal diagnosis: Cellulitis RLE Abscess right lower extremity This is a 42-year-old male with history of a possible insect bite to the right lower leg. He is status post incision and drainage with irrigation with antibiotic solution. He is stable from orthopedic standpoint. The patient is threatening to leave AMA since his transfer to the fifth floor. He states that there is no where for his to sleep. Objective - Vital Signs Vital signs: Vital Signs Temp 99.1 F 06/15/17 07:51 Pulse 86 06/15/17 07:51 Resp 18 06/15/17 07:51 BP 111/53 06/15/17 07:51 Pulse Ox 93 L 06/15/17 07:51 Intake & Output 06/14/17 06/15/17 06/15/17 18:59 06:59 18:59 Intake Total 651 1100 Output Total 425 0 Balance 226 1100 Weight 77.5 kg Intake: IV 651 1050 Sodium Chloride 0.9% 1, 800 000 ml @ 150 mls/hr IV . Q6H40M [facility] Rx#:[id number] Vancomycin 1,250 mg In 250 Sodium Chloride 0.9% 250 ml @ 125 mls/hr IVPB Q12H [facility] Rx#:[id number] Intake, IV Titration 50 Amount Piperacillin-Tazobactam 3 50 .375 gm In Dextrose/Water 1 50ml.bag @ 12.5 mls/hr IVPB Q8HR [facility] Rx#: [id number] Output: Urine 400 0 Estimated Blood Loss 25 Other: Voiding Method Urinal # Voids 1 2 # Bowel Movements 0 0 - Exam This is a 42-year-old male in no acute distress. He is alert and oriented 3. Exam the left lower extremity reveals that his dressing is intact but Guanako wrap has been removed. His swelling is improved. Erythema has subsided. He has full foot ankle motion without difficulty or pain. Neurovascular status lower extremities intact. - Labs CBC & Chem 7: 06/15/17 06:48 06/15/17 06:48 Labs: Abnormal Lab Results - Last 24 Hours (Table) 06/14/17 06/14/17 06/15/17 Range/Units 08:30 08:30 06:48 WBC 14.4 H (3.8-10.6) k/uL RBC 3.69 L (4.30-5.90) m/uL Hgb 11.4 L (13.0-17.5) gm/dL Hct 35.1 L (39.0-53.0) % Neutrophils # 11.4 H (1.3-7.7) k/uL ESR 64 H (0-15) mm/hr Calcium (8.4-10.2) mg/dL C-Reactive Protein 326.6 H (<10.0) mg/L 06/15/17 Range/Units 06:48 WBC (3.8-10.6) k/uL RBC (4.30-5.90) m/uL Hgb (13.0-17.5) gm/dL Hct (39.0-53.0) % Neutrophils # (1.3-7.7) k/uL ESR (0-15) mm/hr Calcium 7.6 L (8.4-10.2) mg/dL C-Reactive Protein (<10.0) mg/L Microbiology - Last 24 Hours (Table) 06/14/17 12:47 Gram Stain - Preliminary Leg - Right Wound Culture - Preliminary 06/12/17 19:35 Blood Culture - Preliminary Blood No Growth after 48 hours 06/12/17 19:14 Blood Culture - Preliminary Blood No Growth after 48 hours 06/14/17 12:47 Anaerobic Culture - Preliminary Leg - Right 06/12/17 10:30 Gram Stain - Preliminary Leg - Right Wound Culture - Preliminary Methicillin resist S. aureus Gram Neg Bacilli 06/12/17 10:30 Blood Culture - Preliminary Blood No Growth after 48 hours Assessment and Plan (1) Cellulitis and abscess of leg Status: Acute Plan: The clinical findings are discussed the patient and his . He is to continue current IV antibiotics per Dr. Corey. We're planning surgery on Saturday for repeat I&D and possible secondary closure.
[2017-06-15] MEDS: NICOTINE 21MG/24HR PATCH TRANSDERM SCH (08:48)
[2017-06-15] MEDS: HEPARIN SODIUM,PORCINE 5,000 UNIT/ML 1 ML VIAL SQ SCH (08:49)
[2017-06-15] MEDS: PANTOPRAZOLE 40 MG TABLET PO SCH ×2 (08:49→18:12)
--- NOTE | 2017-06-15 10:51 | PN ---
DATE OF SERVICE: 06/14/2017 This is a 42-year-old gentleman who was admitted with significant cellulitis and infection of the right leg, underwent right leg subcutaneous abscess incision and drainage with a packed wound with moist iodoform gauze by Dr. Aldrich. There is no history of fever, rigors or chills. No history of headaches , loss of consciousness at this time. MRSA is grown from the culture. PHYSICAL EXAM: Patient is alert and oriented x3. Pulse is 105, blood pressure is 135/75, respirations 18, temperature is 101.3, pulse ox 97% on room air. HEENT: Conjunctivae normal. NECK: No jugular venous distension. CARDIOVASCULAR SYSTEM: S1, S2, muffled. RESPIRATORY: Breath sounds diminished at the bases, a few scattered rhonchi, no crackles. ABDOMEN: Soft, nontender. LEGS: Right leg swelling present. NERVOUS SYSTEM: No focal deficits. Status post incision and drainage. LABS: WBC is 16.4, sodium 135, CRP is 326. ASSESSMENT: 1. Acute right leg abscess with cellulitis with severe sepsis present on admission with methicillin-resistant Staphylococcus aureus and gram-negative bacilli. 2. Increased WBC. 3. History of nicotine dependence. 4. Gastroesophageal reflux disease. 5. Degenerative joint disease. 6. History of back pain. RECOMMENDATION: Recommend to continue with the current medication and symptomatic treatment. Continue with the broad spectrum IV antibiotics. Guarded prognosis because of multiple complex medical issues. Further recommendations to follow. See orders for further details. Closely follow with Infectious Disease. MERYL
[2017-06-15] MEDS: TEMAZEPAM 15 MG CAP PO PRN (23:32)
[2017-06-16] MEDS: HEPARIN SODIUM,PORCINE 5,000 UNIT/ML 1 ML VIAL SQ SCH ×3 (03:04→21:27)
[2017-06-16] MEDS: HYDROmorphone 1 MG/ML 1 ML SYRINGE IVP PRN ×6 (03:07→21:54)
[2017-06-16] MEDS: LACTATED RINGERS 1,000 ML IV SCH ×4 (03:10→17:51)
[2017-06-16 05:56] LABS: Basophils % (A) 0 %; CH 31.2; CHCM 32.7; Eosinophils # (A) 0.3 k/uL (0-0.7); Eosinophils % (A) 3 %; HCT 37.1 % (39.0-53.0); HDW 2.24; HGB 11.8 gm/dL (13.0-17.5); Luc # (Auto) 0.24; Luc % (Auto) 2; Lymphocytes # (A) 1.7 k/uL (1.0-4.8); Lymphocytes % (A) 16 %; MCH 30.5 pg (25.0-35.0); MCHC 31.9 g/dL (31.0-37.0); MCV 95.7 fL (80.0-100.0); Mean Platelet Volume 8.2; Monocytes # (A) 0.7 k/uL (0-1.0); Monocytes % (A) 7 %; Neutrophils # (A) 7.7 k/uL (1.3-7.7); Neutrophils % (A) 72 %; RBC 3.88 m/uL (4.30-5.90); RDW 12.9 % (11.5-15.5); WBC 10.6 k/uL (3.8-10.6); WBC (Perox) 10.47
[2017-06-16 06:07] LABS: Anion Gap 8 mmol/L; Blood Urea Nitrogen 11 mg/dL (9-20); Calcium 8.2 mg/dL (8.4-10.2); Carbon Dioxide 25 mmol/L (22-30); Chloride 105 mmol/L (98-107); Glucose 94 mg/dL (74-99); Non-African American GFR(MDRD) >60 (>60 ml/min/1.73 sqM); Potassium 3.8 mmol/L (3.5-5.1); Sodium 138 mmol/L (137-145)
[2017-06-16] MEDS: VANCOMYCIN 1,250 MG in SODIUM CHLORIDE 0.9% 250 ML IVPB SCH ×3 (06:13→21:25)
[2017-06-16] MEDS: PANTOPRAZOLE 40 MG TABLET PO SCH ×2 (08:13→17:51)
[2017-06-16] MEDS: NICOTINE 21MG/24HR PATCH TRANSDERM SCH (08:13)
[2017-06-16] MEDS: IBUPROFEN 600 MG TAB PO PRN (08:46)
[2017-06-16] MEDS: HYDROcodone/APAP 5-325MG 1 EACH TAB PO PRN (08:52)
[2017-06-16] MEDS ORDERED: HYDROcodone/APAP 7.5-325MG 1 EACH TAB PO PRN (10:02)
--- NOTE | 2017-06-16 10:06 | P.PN ---
Subjective Principal diagnosis: Cellulitis RLE Abscess right lower extremity This is a 42-year-old male with history of a possible insect bite to the right lower leg. He is status post incision and drainage with irrigation with antibiotic solution. He is stable from orthopedic standpoint. Cultures are showing MRSA. Objective - Vital Signs Vital signs: Vital Signs Temp 98.4 F 06/16/17 08:00 Pulse 81 06/16/17 08:00 Resp 18 06/16/17 08:00 BP 123/77 06/16/17 08:00 Pulse Ox 97 06/16/17 08:00 Intake & Output 06/15/17 06/16/17 06/16/17 18:59 06:59 18:59 Intake Total 480 1000 Output Total 0 0 Balance 480 1000 Weight 74.5 kg Intake: Intake, IV Titration 1000 Amount Lactated Ringers 1,000 ml 900 @ 100 mls/hr IV .Q10H [facility] Rx#:[id number] cefTAZidime 2 gm In 100 Sodium Chloride 0.9% 100 ml @ 100 mls/hr IVPB Q8HR [facility] Rx#:[id number] Oral 480 Output: Urine 0 0 Other: Voiding Method Urinal Urinal Urinal # Voids 2 2 2 # Bowel Movements 0 0 - Exam This is a 42-year-old male in no acute distress. He is alert and oriented 3. Exam the left lower extremity reveals that his dressing is intact but Guanako wrap has been removed. His swelling is improved. Erythema has subsided. He has full foot ankle motion without difficulty or pain. Neurovascular status lower extremities intact. - Labs CBC & Chem 7: 06/16/17 05:26 06/16/17 05:26 Labs: Abnormal Lab Results - Last 24 Hours (Table) 06/16/17 06/16/17 Range/Units 05:26 05:26 RBC 3.88 L (4.30-5.90) m/uL Hgb 11.8 L (13.0-17.5) gm/dL Hct 37.1 L (39.0-53.0) % Calcium 8.2 L (8.4-10.2) mg/dL Microbiology - Last 24 Hours (Table) 06/12/17 19:35 Blood Culture - Preliminary Blood No Growth after 72 hours 06/12/17 19:14 Blood Culture - Preliminary Blood No Growth after 72 hours 06/12/17 10:30 Gram Stain - Final Leg - Right Wound Culture - Final Methicillin resist S. aureus Stenotrophomonas maltophilia 06/12/17 10:30 Blood Culture - Preliminary Blood No Growth after 72 hours 06/14/17 12:47 Gram Stain - Preliminary Leg - Right Wound Culture - Preliminary Presumptive MRSA Assessment and Plan (1) Cellulitis and abscess of leg Status: Acute Plan: The clinical findings are discussed the patient and his . He is to continue current IV antibiotics per Dr. Corey. We're planning surgery on Saturday for repeat I&D and possible secondary closure.
--- NOTE | 2017-06-16 11:02 | PN ---
DATE OF SERVICE: 06/15/2017 This 42-year-old gentleman was admitted with acute right leg abscess for incision and drainage. The organism is identified as MRSA as well as Stenotrophomonas maltophilia. No chest pain, no palpitation, no fever. The right leg is still swollen. PHYSICAL EXAM: Alert and oriented x3. Pulse 86, blood pressure 109/( ), respirations 18, temperature 99.1, pulse ox 93% on room air. HEENT: Conjunctivae normal. NECK: No JVD. CARDIAC: S1/S2. RESPIRATORY: Diminished breath sounds especially at the bases. A few scattered rhonchi. ABDOMEN: Soft, nontender. LEGS: Right leg erythema and swelling present. NERVOUS SYSTEMS: No focal deficits. LABS: WBC 14.3, hemoglobin is 11.4. ASSESSMENT: 1. Acute right leg abscess with cellulitis status post incision and drainage with severe sepsis present on admission with methicillin-resistant Staphylococcus aureus as well as Stenotrophomonas maltophilia. 2. Increased WBC. 3. History of nicotine dependence. 4. Gastroesophageal reflux disease. 5. Degenerative joint disease. 6. History of back pain. RECOMMENDATIONS AND DISCUSSION: Recommend to continue current medication, continue to monitor, continue symptomatic treatment. Continue broad spectrum IV antibiotics, infectious disease evaluation. Currently patient is on ceftazidime and vancomycin. Continue to monitor. Guarded prognosis. Further recommendations to follow. Orthopedic surgery for evaluation. MERYL
[2017-06-16] MEDS: HYDROcodone/APAP 7.5-325MG 1 EACH TAB PO PRN ×3 (12:18→23:21)
--- NOTE | 2017-06-16 14:16 | PN ---
DATE OF SERVICE: 06/15/17 REASON FOR FOLLOW UP: Right leg abscess and cellulitis. INTERVAL HISTORY: The patient overall feels better and has improved. Last night ( ) last night. This morning, the patient has been afebrile. The patients pain to the right lateral leg is currently controlled. Denies significant chest pain, shortness of breath or any cough. No abdominal pain or diarrhea. On examination, blood pressure 122/59, pulse 91, temperature 98.2, he is 98% on room air. General description is a middle age male lying in the bed in no distress. Respiratory system: Unlabored breathing. Clear to auscultation anteriorly. Heart: S1, S2 regular rate and rhythm. Abdomen soft, no tenderness. Right leg wound is currently dressed with blood stained drainage on the dressing. Surrounding drainage is slightly improved. LABS: Hemoglobin 11.4, white count 14.4 with a BUN of 11. Creatinine 0.95. The patients wound culture with ( ) MRSA and ( ). DIAGNOSTIC IMPRESSION AND PLAN: Patient with right lower extremity abscess status post drainage with secondary cellulitis and multiple pathogens currently covered with Vancomycin and Fortaz ( ) and this will be discontinued. Continue local wound care per surgery. Continue supportive care. MTDD
[2017-06-16] MEDS ORDERED: MIDAZOLAM 2 MG/2 ML VIAL IV PRN (16:19)
[2017-06-16] MEDS ORDERED: DEXAMETHASONE SOD PHOSPHATE 10 MG/ML 1 ML VIAL IV ONE (16:19)
[2017-06-16] MEDS: SCOPOLAMINE 1.5MG/72HR PATCH TRANSDERM ONE (17:52)
[2017-06-16] MEDS: ALPRAZolam 0.25 MG TAB PO PRN (21:55)
[2017-06-16] MEDS: TEMAZEPAM 15 MG CAP PO PRN (23:21)
[2017-06-17] MEDS: HYDROmorphone 1 MG/ML 1 ML SYRINGE IVP PRN ×5 (02:25→21:02)
[2017-06-17] MEDS: VANCOMYCIN 1,250 MG in SODIUM CHLORIDE 0.9% 250 ML IVPB SCH ×3 (06:00→21:02)
[2017-06-17] MEDS: HYDROcodone/APAP 7.5-325MG 1 EACH TAB PO PRN ×3 (07:17→18:53)
[2017-06-17 08:01] LABS: Basophils # (A) 0.1 k/uL (0-0.2); Basophils % (A) 1 %; CH 31.4; CHCM 32.8; Eosinophils # (A) 0.5 k/uL (0-0.7); Eosinophils % (A) 5 %; HCT 39.1 % (39.0-53.0); HGB 12.3 gm/dL (13.0-17.5); Luc # (Auto) 0.19; Luc % (Auto) 2; Lymphocytes # (A) 1.9 k/uL (1.0-4.8); Lymphocytes % (A) 20 %; MCH 30.2 pg (25.0-35.0); MCHC 31.5 g/dL (31.0-37.0); MCV 95.9 fL (80.0-100.0); Mean Platelet Volume 7.8; Monocytes # (A) 0.7 k/uL (0-1.0); Monocytes % (A) 7 %; Neutrophils # (A) 6.2 k/uL (1.3-7.7); Neutrophils % (A) 65 %; RBC 4.08 m/uL (4.30-5.90); WBC 9.6 k/uL (3.8-10.6); WBC (Perox) 9.26
[2017-06-17 08:23] LABS: Anion Gap 7 mmol/L; Blood Urea Nitrogen 10 mg/dL (9-20); Calcium 8.2 mg/dL (8.4-10.2); Carbon Dioxide 26 mmol/L (22-30); Chloride 105 mmol/L (98-107); Glucose 78 mg/dL (74-99); Non-African American GFR(MDRD) >60 (>60 ml/min/1.73 sqM); Potassium 4.2 mmol/L (3.5-5.1); Sodium 138 mmol/L (137-145)
[2017-06-17 09:20] VITALS: RESP 16
[2017-06-17] MEDS: LACTATED RINGERS 1,000 ML IV SCH ×2 (09:20→17:50)
[2017-06-17] MEDS ORDERED: hydrOXYzine PAMOATE 25 MG CAP PO PRN (10:35)
[2017-06-17] MEDS ORDERED: HYDROmorphone 1 MG/ML 1 ML SYRINGE IVP ONE ×2 (10:49→10:54)
--- NOTE | 2017-06-17 10:58 | P.OP ---
Date of Procedure: 06/17/17 Preoperative Diagnosis: Postoperative Diagnosis: Procedure(s) Performed: PREOPERATIVE DIAGNOSES: 1. Right leg superficial abscess with MRSA status post incision and drainage with packing 2. Resolved lymphangitis and significant clinical improvement POSTOPERATIVE DIAGNOSES: 1. Right leg superficial abscess with MRSA status post incision and drainage with packing 2. Resolved lymphangitis and significant clinical improvement PROCEDURES PERFORMED: 1. Right leg abscess wound irrigation with partial closure and repacking ANESTHESIA: Gen. GALLERY OR MUSEUM CURATOR: None COMPLICATIONS: None ESTIMATED BLOOD LOSS: Less than 20 mL. DISPOSITION: To post-anesthesia care unit INDICATIONS: Harsha is a 42 year old male with a history of abscess involving the right lower extremity which has successfully undergone incision and drainage approximately 3 days ago. He presents to the operating room for repeat I&D with possible closure and possible drain placement. He has clinically improved with diminished symptoms, resolution of his lymphangitis, and normalization of his labs. Cultures positive for MRSA. Consent has been obtained after discussion of the risks of delayed primary closure with repeat I& D as being inclusive of, but not limited to: Bleeding, further infection, scarring, discomfort, blood vessel and/or nerve damage, compartment syndrome, failure to relieve symptoms, persistence or recurrence and/or worsening of symptoms or problems, need for further surgery, blood clot, pulmonary embolism, , anesthesia risks, and other risks. PROCEDURE: After appropriate consent was obtained, the patient was taken to the operating room placed in the supine position. Anesthesia was initiated, and after confirmation of adequate anesthesia, the patient was carefully positioned. Care was taken to make sure that all pressure points were adequately padded. Prepping and draping were completed in the usual aseptic fashion using ChloraPrep. Note was made of some residual pus on the packing material that was removed. Timeout was called, confirming patient identity, side, and procedure. Wound was inspected and abscess cavity was interrogated. There was still some evidence of pus within the depths of the wound. The proximal portion of the incision was extended by approximately 1 cm for additional exposure. Hemostasis was obtained using electrocautery. Pulsatile lavage was used, delivering 3 L of saline within the abscess cavity. During this time, small amount of Hibiclens solution was also applied to the wound surface, allowed to soak into the tissues for 1 minute, and then rinsed off using the pulsatile lavage. The inferior portion of the wound appeared to be in good condition without evidence of extension of the abscess cavity in this region. Therefore, partial closure of this portion of the incision was performed, closing approximately 1.5 cm. This was performed with a horizontal mattress suture of 3-0 nylon suture. The abscess cavity itself was repacked with moistened half-inch iodoform gauze lightly. Sterile dressing was then applied with ABDs, Kerlix and minimally compressive Guanako wrap. Patient tolerated the procedure well and taken to recovery room in stable condition. Sponge and needle counts were correct. Implants: Indications for Procedure: Operative Findings: Description of Procedure:
[2017-06-17] MEDS: HYDROmorphone 1 MG/ML 1 ML SYRINGE IVP ONE ×2 (11:02→11:11)
[2017-06-17] MEDS: SCOPOLAMINE 1.5MG/72HR PATCH TRANSDERM ONE (11:37)
[2017-06-17] MEDS: HEPARIN SODIUM,PORCINE 5,000 UNIT/ML 1 ML VIAL SQ SCH ×2 (12:23→21:01)
[2017-06-17] MEDS: NICOTINE 21MG/24HR PATCH TRANSDERM SCH (12:23)
[2017-06-17] MEDS: PANTOPRAZOLE 40 MG TABLET PO SCH ×2 (12:23→17:28)
--- NOTE | 2017-06-17 13:36 | PN ---
DATE OF SERVICE: 06/16/2017 This 42-year-old gentleman who was admitted with right leg abscess with MRSA and Stenotrophomonas maltophilia. The patient had incision and drainage and incision and drainage and debridement probably tomorrow. On exam, alert and oriented x3. Pulse 81, blood pressure 133/76, respirations 18, temperature 98.4, pulse ox 97% on room air. HEENT: Conjunctivae normal. NECK: No jugular venous distention. CARDIOVASCULAR: S1 and S3, muffled. RESPIRATORY: Breath sounds diminished at the bases. A few scattered rhonchi, no crackles. ABDOMEN: Soft, nontender. LEGS: ( ). NERVOUS SYSTEM: No focal deficits. Labs are at this time shows WBC 14.4, hemoglobin 11.4 C-reactive protein noted. Cultures noted. ASSESSMENT: 1. Acute right leg abscess with cellulitis, status post incision and drainage with severe sepsis, present on admission with MRSA and as well as Stenotrophomonas maltophilia. 2. Increased WBC. 3. History of nicotine dependence. 4. Gastroesophageal reflux disease. 5. Degenerative joint disease. 6. History of back pain. RECOMMENDATIONS AND DISCUSSION: Recommend to continue current medications. Continue with monitoring and symptomatic treatment. Otherwise, continue to monitor closely. Guarded prognosis. Further recommendations to follow. MTDD
--- NOTE | 2017-06-17 17:16 | P.PN ---
Subjective A 42-year-old is admitted to the hospital with right lower extremity abscess and associated lymphangitis. Patient was noted to have MRSA. Patient underwent his second I/D today States that he is anxious to go home denies having fevers chills headaches blurry vision. Patient is noted to have some loose stools other abnormalities were. Reported Objective - Vital Signs Vital signs: Vital Signs Temp 98.1 F 06/17/17 15:00 Pulse 77 06/17/17 15:00 Resp 16 06/17/17 15:00 BP 165/81 06/17/17 15:00 Pulse Ox 97 06/17/17 15:00 Intake & Output 06/16/17 06/17/17 06/17/17 18:59 06:59 18:59 Intake Total 650 550 Output Total 0 455 Balance 650 95 Weight 76 kg Intake: IV 550 Intake, IV Titration 650 Amount Lactated Ringers 1,000 ml 400 @ 20 mls/hr IV .Q24H [facility] Rx#:[id number] Vancomycin 1,250 mg In 250 Sodium Chloride 0.9% 250 ml @ 125 mls/hr IVPB Q8H [facility] Rx#:[id number] Output: Urine 0 450 Estimated Blood Loss 5 Other: Voiding Method Urinal Urinal Urinal # Voids 4 4 - Exam Physical exam Gen. appearance oriented 3 in no distress Neck is supple no JVD Lungs good air entry clear to auscultation no rhonchi or wheezing Heart S1-S2 heard regular rate and rhythm no murmurs appreciated Abdomen is soft nontender no organomegaly bowel sounds are intact Neurologically cranial nerves II-12 grossly intact no focal motor or sensory deficits noted wrapping noted on the right lower extremity. - Labs CBC & Chem 7: 06/17/17 07:23 06/17/17 07:23 Labs: Abnormal Lab Results - Last 24 Hours (Table) 06/17/17 06/17/17 Range/Units 07:23 07:23 RBC 4.08 L (4.30-5.90) m/uL Hgb 12.3 L (13.0-17.5) gm/dL Calcium 8.2 L (8.4-10.2) mg/dL Microbiology - Last 24 Hours (Table) 06/12/17 10:30 Blood Culture - Preliminary Blood No Growth after 120 hours 06/12/17 19:35 Blood Culture - Preliminary Blood No Growth after 96 hours 06/12/17 19:14 Blood Culture - Preliminary Blood No Growth after 96 hours 06/14/17 12:47 Anaerobic Culture - Preliminary Leg - Right 06/14/17 12:47 Gram Stain - Final Leg - Right Wound Culture - Final Methicillin resist S. aureus Assessment and Plan Plan: #1 MRSA right lower extremity abscess with associated lymphangitis GERD History of back pain Plan Required I&D today. We'll need to assess if patient needs IV antibiotics the complication is that patient does not have insurance We'll work with the obtaining Medicaid and have wound care and IV antibiotics set up There is still some concern for underlying infection during the surgery today as well.
[2017-06-17] MEDS: ALPRAZolam 0.25 MG TAB PO PRN (17:22)
--- NOTE | 2017-06-17 17:37 | PN ---
DATE OF SERVICE: 06/16/17 REASON FOR FOLLOW UP: Right leg abscess and cellulitis. INTERVAL HISTORY: The patient is afebrile. Overall pain to the left leg is currently controlled. The patient denies significant chest pain, shortness of breath, cough, no abdominal pain and no diarrhea. On examination, blood pressure 144/73, pulse 90, temperature 97.7. He is 97 % on room air. General description is a middle age male lying in the bed in no distress. Respiratory system: Unlabored breathing. Clear to auscultation anteriorly. Heart: S1, S2 regular rate and rhythm. Abdomen soft, no tenderness. Right leg is currently dressed. Minimal drainage on the dressing. LABS: white count normal ( ). Wound culture with ( ) and MRSA. DIAGNOSTIC IMPRESSION AND PLAN: Patient with MRSA ( ) fullness, right leg abscess. Plan for repeat I&D and possible closure tomorrow per ortho. He will be continued on Vancomycin and Fortaz at this point. Continue supportive care. MERYL
[2017-06-18] MEDS: HYDROmorphone 1 MG/ML 1 ML SYRINGE IVP PRN ×6 (00:03→21:28)
[2017-06-18] MEDS: ALPRAZolam 0.25 MG TAB PO PRN ×4 (01:46→21:28)
[2017-06-18] MEDS: HYDROcodone/APAP 7.5-325MG 1 EACH TAB PO PRN ×4 (01:46→23:25)
[2017-06-18] MEDS: VANCOMYCIN 1,250 MG in SODIUM CHLORIDE 0.9% 250 ML IVPB SCH ×3 (06:00→21:28)
[2017-06-18] MEDS: NICOTINE 21MG/24HR PATCH TRANSDERM SCH (08:15)
[2017-06-18] MEDS: PANTOPRAZOLE 40 MG TABLET PO SCH ×2 (08:15→17:50)
[2017-06-18] MEDS: HEPARIN SODIUM,PORCINE 5,000 UNIT/ML 1 ML VIAL SQ SCH ×2 (08:15→21:28)
--- NOTE | 2017-06-18 10:03 | P.PN ---
Subjective Principal diagnosis: Cellulitis RLE Abscess right lower extremity This is a 42-year-old male with history of a possible insect bite to the right lower leg. He is status post incision and drainage with irrigation with antibiotic solution x2. He is stable from orthopedic standpoint. Cultures are showing MRSA. Objective - Vital Signs Vital signs: Vital Signs Temp 97.7 F 06/18/17 07:00 Pulse 83 06/18/17 07:00 Resp 16 06/18/17 07:00 BP 140/90 06/18/17 07:00 Pulse Ox 97 06/18/17 07:00 Intake & Output 06/17/17 06/18/17 06/18/17 18:59 06:59 18:59 Intake Total 550 120 Output Total 455 600 Balance 95 -480 Intake: IV 550 Oral 120 Output: Urine 450 600 Estimated Blood Loss 5 Other: Voiding Method Urinal Urinal # Voids 3 1 - Exam This is a 42-year-old male in no acute distress. He is alert and oriented 3. Exam the left lower extremity reveals that his dressing is intact but [place] wrap has been removed. There is drainage noted on the dressing. His swelling is improved. Erythema has subsided. He has full foot ankle motion without difficulty or pain. Neurovascular status lower extremities intact. - Labs CBC & Chem 7: 06/17/17 07:23 06/17/17 07:23 Labs: Microbiology - Last 24 Hours (Table) 06/12/17 19:35 Blood Culture - Preliminary Blood No Growth after 120 hours 06/12/17 19:14 Blood Culture - Preliminary Blood No Growth after 120 hours 06/12/17 10:30 Blood Culture - Preliminary Blood No Growth after 120 hours Assessment and Plan (1) Cellulitis and abscess of leg Status: Acute Plan: The clinical findings are discussed the patient. He may be discharged from an orthopedic standpoint. He is to have daily dressing and packing changes. Antibiotics per infectious disease. He is to follow-up in our office in 1 week.
--- NOTE | 2017-06-18 10:11 | PN ---
DATE OF SERVICE: 06/17/2017 Reason for follow up is right leg abscess and cellulitis. INTERVAL HISTORY: The patient is afebrile. Overall pain and swelling of the right leg is currently slightly better than yesterday. Patient denies significant chest pain, shortness of breath, cough. No abdominal pain or diarrhea. On examination, blood pressure 175/81 with pulse of 77. Temperature 98.1. He is 97% on room air. General description is a young male lying in bed in no distress. RESPIRATORY: Unlabored breathing. Clear to auscultation anteriorly. HEART: S1, S2 regular rate and rhythm. ABDOMEN: Soft, no tenderness. Right leg is currently dressed up. No obvious drainage on the dressing. LABS: Hemoglobin is 12.8, white count 9.6 with BUN 10, creatinine 0.81. DIAGNOSTIC IMPRESSION AND PLAN: Patient with right leg abscess and cellulitis with wound culture positive for MRSA ( ) for which ( ) will be continued. Re-evaluate wound tomorrow. Discharge antibiotics. Continue supportive care. MERYL
[2017-06-18] MEDS: IBUPROFEN 600 MG TAB PO PRN (12:36)
[2017-06-18] MEDS: LACTATED RINGERS 1,000 ML IV SCH (16:37)
[2017-06-18 22:59] VITALS: PULSE 68
[2017-06-19] MEDS: HYDROmorphone 1 MG/ML 1 ML SYRINGE IVP PRN ×4 (03:15→14:37)
[2017-06-19] MEDS ORDERED: VANCOMYCIN TROUGH DUE 1 EACH MISC MISCELLANE ONE (05:00)
[2017-06-19] MEDS: VANCOMYCIN 1,250 MG in SODIUM CHLORIDE 0.9% 250 ML IVPB SCH ×2 (05:39→15:12)
[2017-06-19] MEDS: HYDROcodone/APAP 7.5-325MG 1 EACH TAB PO PRN ×3 (05:40→15:47)
[2017-06-19] MEDS: HEPARIN SODIUM,PORCINE 5,000 UNIT/ML 1 ML VIAL SQ SCH (07:37)
[2017-06-19] MEDS: NICOTINE 21MG/24HR PATCH TRANSDERM SCH (07:37)
[2017-06-19] MEDS: PANTOPRAZOLE 40 MG TABLET PO SCH (07:37)
[2017-06-19 08:11] VITALS: BP 113/68; TEMP 97.7
[2017-06-19] MEDS: ALPRAZolam 0.25 MG TAB PO PRN (11:19)
[2017-06-19 13:33] VITALS: BMI 26.2
--- NOTE | 2017-06-19 13:48 | P.PN ---
Subjective Principal diagnosis: This is a progress note for 2016 A 42-year-old is admitted to the hospital with right lower extremity abscess and associated lymphangitis. Patient was noted to have MRSA. Patient underwent his second I/D today States that he is anxious to go home denies having fevers chills headaches blurry vision. Patient is noted to have some loose stools other abnormalities were. Reported 06/18/2017 no change in clinical status. Patient does not have insurance hence antibiotic approval is pending depending on financial help Denies having fevers chills nausea vomiting or diarrhea Pain is controlled on medications. Objective - Vital Signs Vital signs: Vital Signs Temp 97.7 F 06/19/17 07:00 Pulse 68 06/19/17 07:50 Resp 16 06/19/17 07:50 BP 113/68 06/19/17 07:00 Pulse Ox 98 06/19/17 07:00 Intake & Output 06/18/17 06/19/17 06/19/17 18:59 06:59 18:59 Intake Total 250 800 Output Total 1325 Balance 250 -525 Weight 76 kg Intake: Intake, IV Titration 250 600 Amount Vancomycin 1,250 mg In 250 500 Sodium Chloride 0.9% 250 ml @ 125 mls/hr IVPB Q8H [facility] Rx#:[id number] cefTAZidime 2 gm In 100 Sodium Chloride 0.9% 100 ml @ 100 mls/hr IVPB Q8HR [facility] Rx#:[id number] Oral 200 Output: Urine 1325 Other: Voiding Method Urinal Urinal Urinal # Voids 3 1 - Exam Physical exam Gen. appearance oriented 3 in no distress Neck is supple no JVD Lungs good air entry clear to auscultation no rhonchi or wheezing Heart S1-S2 heard regular rate and rhythm no murmurs appreciated Abdomen is soft nontender no organomegaly bowel sounds are intact Neurologically cranial nerves II-12 grossly intact no focal motor or sensory deficits noted leg wound is noted. Some pus is appreciated Tender to palpation - Labs CBC & Chem 7: 06/17/17 07:23 06/17/17 07:23 Labs: Microbiology - Last 24 Hours (Table) 06/12/17 19:35 Blood Culture - Final Blood No Growth after 144 hours 06/12/17 19:14 Blood Culture - Final Blood No Growth after 144 hours 06/12/17 10:30 Blood Culture - Final Blood No Growth after 144 hours 06/14/17 12:47 Anaerobic Culture - Final Leg - Right Assessment and Plan Plan: #1 MRSA right lower extremity abscess with associated lymphangitis GERD History of back pain Plan We'll need to assess if patient needs IV antibiotics the complication is that patient does not have insurance We'll work with the obtaining Medicaid and have wound care and IV antibiotics set up
--- NOTE | 2017-06-19 13:50 | P.PN ---
Subjective A 42-year-old is admitted to the hospital with right lower extremity abscess and associated lymphangitis. Patient was noted to have MRSA. Patient underwent his second I/D today States that he is anxious to go home denies having fevers chills headaches blurry vision. Patient is noted to have some loose stools other abnormalities were. Reported 06/18/2017 no change in clinical status. Patient does not have insurance hence antibiotic approval is pending depending on financial help Denies having fevers chills nausea vomiting or diarrhea Pain is controlled on medications. 06/19/2017 no new overnight events denies having fevers chills nausea vomiting chest pain difficulty in breathing abdominal pain urinary urgency or frequency pain is controlled. Objective - Vital Signs Vital signs: Vital Signs Temp 97.7 F 06/19/17 07:00 Pulse 68 06/19/17 07:50 Resp 16 06/19/17 07:50 BP 113/68 06/19/17 07:00 Pulse Ox 98 06/19/17 07:00 Intake & Output 06/18/17 06/19/17 06/19/17 18:59 06:59 18:59 Intake Total 250 800 Output Total 1325 Balance 250 -525 Weight 76 kg Intake: Intake, IV Titration 250 600 Amount Vancomycin 1,250 mg In 250 500 Sodium Chloride 0.9% 250 ml @ 125 mls/hr IVPB Q8H [facility] Rx#:[id number] cefTAZidime 2 gm In 100 Sodium Chloride 0.9% 100 ml @ 100 mls/hr IVPB Q8HR [facility] Rx#:[id number] Oral 200 Output: Urine 1325 Other: Voiding Method Urinal Urinal Urinal # Voids 3 1 - Exam Physical exam Gen. appearance oriented 3 in no distress Neck is supple no JVD Lungs good air entry clear to auscultation no rhonchi or wheezing Heart S1-S2 heard regular rate and rhythm no murmurs appreciated Abdomen is soft nontender no organomegaly bowel sounds are intact Neurologically cranial nerves II-12 grossly intact no focal motor or sensory deficits noted l Leg wound is wrapped today. - Labs CBC & Chem 7: 06/17/17 07:23 06/17/17 07:23 Labs: Microbiology - Last 24 Hours (Table) 06/12/17 19:35 Blood Culture - Final Blood No Growth after 144 hours 06/12/17 19:14 Blood Culture - Final Blood No Growth after 144 hours 06/12/17 10:30 Blood Culture - Final Blood No Growth after 144 hours 06/14/17 12:47 Anaerobic Culture - Final Leg - Right Assessment and Plan Plan: #1 MRSA right lower extremity abscess with associated lymphangitis GERD History of back pain Plan Disposition will be home with home care IV antibiotics social work professor on consult Patient is being attempted to be given an IV infusion of a novel antibiotic that has MRSA coverage which will only require one infusion if improved patient is discharged with the medications wound care instructions and home with home care
--- NOTE | 2017-06-19 15:40 | PN ---
DATE OF SERVICE: 06/18/2017 REASON FOR FOLLOW UP: Right leg abscess and cellulitis. INTERVAL HISTORY: The patient is afebrile. Pain to the right leg is currently controlled. Denies significant chest pain, shortness of breath or cough. No abdominal pain, no diarrhea. On examination, blood pressure is 117/75 with a pulse of 87, temperature 98.1. He is 96% on room air. GENERAL DESCRIPTION: Middle-aged male lying in bed in no distress. RESPIRATORY: Unlabored breathing. Clear to auscultation anteriorly. HEART: S1/S2 regular. ABDOMEN: Soft, no tenderness. Right lateral leg with a wound with minimal purulent secretions. Surrounding swelling and tenderness has improved. LABS: Hemoglobin 12.1, white count 9.6. BUN 10, creatinine 0.81. DIAGNOSTIC IMPRESSION: Patient with right leg abscess and cellulitis. Cultures positive for methicillin-resistant Staphylococcus aureus and pseudomonas. Currently on Fortaz and vancomycin. Will continue antibiotics. PLAN: Either one dose of ( ) and oral Bactrim which if could not be arranged, PICC line and IV vancomycin. Local wound care currently with Iodoform packing. Will try to arrange for the wound VAC that will help in the healing process. However, as the patient has no insurance, arrangements of these modalities may be difficult. The case aide is working on it. Continue supportive care. MERYL
--- NOTE | 2017-06-20 08:55 | PN ---
DATE OF SERVICE: 06/19/2017 REASON FOR FOLLOW UP: Right leg abscess and cellulitis with MRSA and ( ). INTERVAL HISTORY: The patient was seen on rounds earlier this afternoon. Patient currently waiting for outpatient antibiotic arrangement before discharge. Patient denies significant chest pain, shortness of breath or cough. No abdominal pain. Pain in the right lateral thigh was currently controlled. On examination: Blood pressure 113/68 with pulse 84. Temperature 97.7. He is 98 % on room air. General description is a middle-aged female lying in bed in no distress. RESPIRATORY: Unlabored breathing. Clear to auscultation anteriorly. HEART: S1, S2 regular rate and rhythm. ABDOMEN: Soft, no tenderness. EXTREMITIES: Right lateral leg wound is currently dressed with minimal drainage. LABS: No new labs have been obtained today. DIAGNOSTIC IMPRESSION AND PLAN: Patient with right lateral leg abscess and cellulitis status post drainage. Culture positive for MRSA and ( ). Trying to arrange for ( ) 1500 mg x1 along with oral Bactrim DS twice a day. Local wound care with the Aquacel silver packing. Will try to arrange for the wound VAC in the outpatient setting. MERYL
--- NOTE | 2017-06-20 08:58 | PN ---
DATE OF SERVICE: 06/19/2017 REASON FOR FOLLOW UP: Right leg abscess and cellulitis with MRSA and ( ). INTERVAL HISTORY: The patient was seen on rounds earlier this afternoon. Patient currently waiting for outpatient antibiotic arrangement before discharge. Patient denies significant chest pain, shortness of breath or cough. No abdominal pain. Pain in the right lateral thigh was currently controlled. On examination: Blood pressure 113/68 with pulse 84. Temperature 97.7. He is 98 % on room air. General description is a middle-aged male lying in bed in no distress. RESPIRATORY: Unlabored breathing. Clear to auscultation anteriorly. HEART: S1, S2 regular rate and rhythm. ABDOMEN: Soft, no tenderness. EXTREMITIES: Right lateral leg wound is currently dressed with minimal drainage. LABS: No new labs have been obtained today. DIAGNOSTIC IMPRESSION AND PLAN: Patient with right lateral leg abscess and cellulitis status post drainage. Culture positive for MRSA and ( ). Trying to arrange for ( ) 1500 mg x1 along with oral Bactrim DS twice a day. Local wound care with the Aquacel silver packing. Will try to arrange for the wound VAC in the outpatient setting. MERYL
== END 2017-06-19 16:24 | disposition home health service (06) | DRG 854 ==
LOC: EC 09:34 → 3SUR 11:57 → 6SEL 18:04 → 5MS5E 06-14 21:09
PROVIDERS: ADMIT Internal Medicine; ATTEND Internal Medicine
PROC: 0J9N0ZZ Drainage of Right Lower Leg Subcutaneous Tissue and Fascia, Open Approach (ICD-10-PCS; principal; 2017-06-14 15:45)
PROC: 0JDN0ZZ Extraction of Right Lower Leg Subcutaneous Tissue and Fascia, Open Approach (ICD-10-PCS; 2017-06-17)
DX: A41.9 Sepsis, unspecified organism (principal); L02.415 Cutaneous abscess of right lower limb; L03.115 Cellulitis of right lower limb; I89.1 Lymphangitis; F17.200 Nicotine dependence, unspecified, uncomplicated; K21.9 Gastro-esophageal reflux disease without esophagitis; M19.90 Unspecified osteoarthritis, unspecified site; R65.20 Severe sepsis without septic shock; G89.29 Other chronic pain; M54.9 Dorsalgia, unspecified; B95.62 Methicillin resistant Staphylococcus aureus infection as the cause of diseases classified elsewhere; B96.89 Other specified bacterial agents as the cause of diseases classified elsewhere; W57.XXXA Bitten or stung by nonvenomous insect and other nonvenomous arthropods, initial encounter
CPT/HCPCS: 36415; 80048; 80053; 80202; 81003; 83605; 85025; 85610; 85652; 85730; 86140; 87040; 87070; 87075; 87077; 87086; 87186; 87205; 96365; 96375; 99284

== ENCOUNTER 2017-06-30 19:08 | Inpatient (IN) | payer OTHER ==
[2017-06-30] MEDS ORDERED: SODIUM CHLORIDE 0.9% 1,000 ML IV STA (19:34)
[2017-06-30] MEDS ORDERED: IV VANCOMYCIN PER PHARMACY 1 EACH MISC MISCELLANE PRN (19:35)
[2017-06-30] MEDS ORDERED: VANCOMYCIN 1,250 MG in SODIUM CHLORIDE 0.9% 250 ML IVPB STA (19:39)
[2017-06-30] MEDS ORDERED: ACETAMINOPHEN TAB 500 MG TAB PO STA (19:47)
[2017-06-30] MEDS ORDERED: IBUPROFEN 600 MG TAB PO STA (19:47)
--- NOTE | 2017-06-30 19:47 | ED ---
General Adult HPI - General Chief complaint: Fever Stated complaint: fever x 3 days Time Seen by Provider: 06/30/17 19:22 Source: patient, family, RN notes reviewed Mode of arrival: ambulatory Limitations: no limitations - History of Present Illness Initial comments: 42-year-old male presents to the emergency department with a chief complaint of right leg swelling and fever. Patient had a spider bite at the beginning of the month. He was admitted for 9 days due to abscess and surgery needed for the area. Patient states he was sent home he was given 1 dose of IV antibiotics and then he has been on Bactrim ever since. Patient states her last 3 days he's noticed a fever another noticing some swelling to the area and he noticed some drainage from his surgical site. They state they were concerned due to his symptoms and the fact he was already on antibiotics so they thought that he should be evaluated. Patient denies any recent shortness of breath, chest pain, back pain, abdominal pain, nausea vomiting, numbness or tingling, dysuria or hematuria, constipation or diarrhea, headaches or visual changes, or any other current symptoms. - Related Data Home Medications Medication Instructions Recorded Confirmed Acetaminophen [Tylenol Extra 2,000 mg PO DAILY PRN 06/12/17 06/30/17 Strength] Ibuprofen [Motrin] 600 mg PO Q4HR PRN 06/12/17 06/30/17 HYDROcodone/APAP 7.5-325MG [[place] 1 tab PO Q4H PRN 06/30/17 06/30/17 7.5-325] Previous Rx's Medication Instructions Recorded ALPRAZolam [Xanax] 0.25 mg PO TID PRN #20 tab 06/19/17 Temazepam [Restoril] 15 mg PO HS PRN #15 cap 06/19/17 Allergies Allergy/AdvReac Type Severity Reaction Status Date / Time No Known Allergies Allergy Verified 06/30/17 19:17 Review of Systems ROS Statement: Those systems with pertinent positive or pertinent negative responses have been documented in the HPI. ROS Other: All systems not noted in ROS Statement are negative. Past Medical History Past Medical History: GERD/Reflux, Osteoarthritis (OA) Additional Past Medical History / Comment(s): back pain History of Any Multi-Drug Resistant Organisms: MRSA Date of last positivie culture/infection: 06/14/17 MDRO Source:: LEG Past Surgical History: No Surgical Hx Reported Additional Past Surgical History / Comment(s): Colonoscopy x2 and EGD Past Psychological History: No Psychological Hx Reported Smoking Status: Current every day smoker Past Alcohol Use History: Occasional Past Drug Use History: None Reported - Past Family History Mother History Unknown: Yes General Exam - General Exam Comments Initial Comments: General: The patient is awake and alert, in no distress, and does not appear acutely ill. Eye: Pupils are equal, round and reactive to light, extra-ocular movements are intact; there is normal conjunctiva bilaterally. No signs of icterus. Ears, nose, mouth and throat: There are moist mucous membranes. Neck: The neck is supple, there is no tenderness. Cardiovascular: There is a regular rate and rhythm. No murmur, rub or gallop is appreciated. Respiratory: Lungs are clear to auscultation, respirations are non-labored, breath sounds are equal. No wheezes, stridor, rales, or rhonchi. Musculoskeletal: Normal ROM, there is tenderness and swelling to the right anterior valladares. No associated erythema surrounding the surgical site. No purulent drainage noted., There is no pedal edema. There is no calf tenderness or swelling. Sensation intact. Pulses equal bilaterally 2+. Neurological: CN II-XII intact, There are no obvious motor or sensory deficits. Coordination appears grossly intact. Speech is normal. Skin: Skin is warm and dry and no rashes or lesions are noted. Psychiatric: Cooperative, appropriate mood & affect, normal judgment. Limitations: no limitations Course Vital Signs 06/30/17 06/30/17 19:17 20:37 Temperature 101.2 F H 99 F Pulse Rate 92 88 Respiratory 18 18 Rate Blood Pressure 129/71 112/66 O2 Sat by Pulse 98 98 Oximetry Medical Decision Making - Medical Decision Making 42-year-old male presents to the emergency Department chief complaint of what appears to be a right valladares cellulitis of a surgical incision site. She does have a high fever here. At this time we will admit the patient for continued IV antibiotics. He has at this point failed outpatient treatment. At this time this is discussed with on-call [employer]GER Paola they are in agreement with the plan. - Lab Data Result diagrams: 06/30/17 19:40 06/30/17 19:40 Lab Results 08/20/17 08/20/17 08/20/17 Range/Units 19:40 19:40 19:40 WBC 21.3 H (3.8-10.6) k/uL RBC 4.39 (4.30-5.90) m/uL Hgb 13.7 (13.0-17.5) gm/dL Hct 40.8 (39.0-53.0) % MCV 92.9 (80.0-100.0) fL MCH 31.3 (25.0-35.0) pg MCHC 33.7 (31.0-37.0) g/dL RDW 13.5 (11.5-15.5) % Plt Count 416 (150-450) k/uL Neutrophils % 84 % Lymphocytes % 7 % Monocytes % 4 % Eosinophils % 3 % Basophils % 1 % Neutrophils # 17.8 H (1.3-7.7) k/uL Lymphocytes # 1.4 (1.0-4.8) k/uL Monocytes # 0.9 (0-1.0) k/uL Eosinophils # 0.6 (0-0.7) k/uL Basophils # 0.2 (0-0.2) k/uL Sodium 139 (137-145) mmol/L Potassium 4.2 (3.5-5.1) mmol/L Chloride 103 (98-107) mmol/L Carbon Dioxide 24 (22-30) mmol/L Anion Gap 12 mmol/L BUN 19 (9-20) mg/dL Creatinine 1.10 (0.66-1.25) mg/dL Est GFR (MDRD) Af Amer >60 (>60 ml/min/1.73 sqM) Est GFR (MDRD) Non-Af >60 (>60 ml/min/1.73 sqM) Glucose 89 (74-99) mg/dL Plasma Lactic Acid Addi 1.7 (0.7-2.0) mmol/L Calcium 9.5 (8.4-10.2) mg/dL Total Bilirubin 0.3 (0.2-1.3) mg/dL AST 22 (17-59) U/L ALT 47 (21-72) U/L Alkaline Phosphatase 138 H (38-126) U/L Total Protein 8.0 (6.3-8.2) g/dL Albumin 4.3 (3.5-5.0) g/dL Disposition Clinical Impression: Cellulitis and abscess of leg Disposition: ADMITTED IP TO THIS HOSP Condition: Stable Referrals: Fred Mendoza MD [Primary Care Provider] - 1-2 days Time of Disposition: 21:20 Decision Date: 06/30/17 Decision Time: 21:20
[2017-06-30 19:57] LABS: Basophils # (A) 0.2 k/uL (0-0.2); Basophils % (A) 1 %; CH 30.8; CHCM 33.3; Eosinophils # (A) 0.6 k/uL (0-0.7); Eosinophils % (A) 3 %; HCT 40.8 % (39.0-53.0); HGB 13.7 gm/dL (13.0-17.5); Luc # (Auto) 0.41; Luc % (Auto) 2; Lymphocytes # (A) 1.4 k/uL (1.0-4.8); Lymphocytes % (A) 7 %; MCH 31.3 pg (25.0-35.0); MCHC 33.7 g/dL (31.0-37.0); MCV 92.9 fL (80.0-100.0); Mean Platelet Volume 7.3; Monocytes # (A) 0.9 k/uL (0-1.0); Monocytes % (A) 4 %; Neutrophils # (A) 17.8 k/uL (1.3-7.7); Neutrophils % (A) 84 %; RBC 4.39 m/uL (4.30-5.90); RDW 13.5 % (11.5-15.5); WBC 21.3 k/uL (3.8-10.6); WBC (Perox) 20.21
[2017-06-30 20:06] LABS: ALT 47 U/L (21-72); AST 22 U/L (17-59); Alkaline Phosphatase 138 U/L (38-126); Anion Gap 12 mmol/L; Blood Urea Nitrogen 19 mg/dL (9-20); Calcium 9.5 mg/dL (8.4-10.2); Carbon Dioxide 24 mmol/L (22-30); Chloride 103 mmol/L (98-107); Glucose 89 mg/dL (74-99); Non-African American GFR(MDRD) >60 (>60 ml/min/1.73 sqM); Potassium 4.2 mmol/L (3.5-5.1); Sodium 139 mmol/L (137-145); Total Bilirubin 0.3 mg/dL (0.2-1.3)
--- NOTE | 2017-06-30 20:29 | XR ---
EXAMINATION TYPE: XR tibia fibula RT DATE OF EXAM: 06/30/2017 COMPARISON: 06/14/2017 HISTORY: Infection and pain TECHNIQUE: 2 views FINDINGS: There is some density in the subcutaneous tissues over the lateral proximal fibula consiste nt with packing. The tibia and fibula appear intact. There is no sign of osteomyelitis. IMPRESSION: Negative tibia and fibula exam. There is 3 x 1 cm area of packing in the subcutaneous tis sues over the proximal lateral fibula.
[2017-06-30] MEDS ORDERED: NALOXONE 0.4 MG/ML 1 ML VIAL IV PRN (21:20)
[2017-06-30] MEDS ORDERED: ONDANSETRON 4 MG/2 ML VIAL IVP PRN (21:20)
[2017-06-30] MEDS ORDERED: ACETAMINOPHEN TAB 325 MG TAB PO PRN (21:20)
[2017-06-30] MEDS ORDERED: TEMAZEPAM 15 MG CAP PO PRN (21:22)
[2017-06-30 23:01] LABS: Glucose,Whole Blood 103 mg/dL (75-99)
[2017-06-30 23:17] VITALS: BMI 24.8
[2017-06-30] MEDS: SODIUM CHLORIDE 0.9% 1,000 ML IV SCH (23:25)
[2017-06-30] MEDS: HYDROcodone/APAP 7.5-325MG 1 EACH TAB PO PRN (23:37)
[2017-06-30] MEDS: ALPRAZolam 0.25 MG TAB PO PRN (23:38)
[2017-07-01] MEDS: HYDROcodone/APAP 7.5-325MG 1 EACH TAB PO PRN ×3 (04:44→13:21)
[2017-07-01] MEDS ORDERED: VANCOMYCIN 1,250 MG in SODIUM CHLORIDE 0.9% 250 ML IVPB SCH (06:00)
[2017-07-01] MEDS: IBUPROFEN 400 MG TAB PO PRN ×2 (07:55→13:21)
[2017-07-01] MEDS: ALPRAZolam 0.25 MG TAB PO PRN ×2 (07:55→16:09)
[2017-07-01 08:14] LABS: Basophils % (A) 0 %; CH 31.1; Eosinophils # (A) 0.5 k/uL (0-0.7); Eosinophils % (A) 4 %; HCT 42.5 % (39.0-53.0); HDW 2.25; HGB 13.2 gm/dL (13.0-17.5); Luc # (Auto) 0.23; Luc % (Auto) 2; Lymphocytes # (A) 0.9 k/uL (1.0-4.8); Lymphocytes % (A) 8 %; MCH 30.3 pg (25.0-35.0); MCV 97.7 fL (80.0-100.0); Mean Platelet Volume 7.6; Monocytes # (A) 0.4 k/uL (0-1.0); Monocytes % (A) 4 %; Neutrophils # (A) 9.5 k/uL (1.3-7.7); Neutrophils % (A) 82 %; RBC 4.35 m/uL (4.30-5.90); RDW 14.1 % (11.5-15.5); WBC 11.6 k/uL (3.8-10.6)
[2017-07-01 08:37] LABS: ALT 44 U/L (21-72); AST 19 U/L (17-59); Alkaline Phosphatase 109 U/L (38-126); Anion Gap 7 mmol/L; Blood Urea Nitrogen 17 mg/dL (9-20); Calcium 8.2 mg/dL (8.4-10.2); Carbon Dioxide 22 mmol/L (22-30); Chloride 106 mmol/L (98-107); Glucose 89 mg/dL (74-99); Non-African American GFR(MDRD) >60 (>60 ml/min/1.73 sqM); Potassium 4.8 mmol/L (3.5-5.1); Sodium 135 mmol/L (137-145); Total Bilirubin 0.2 mg/dL (0.2-1.3); Total Protein 6.4 g/dL (6.3-8.2)
[2017-07-01] MEDS: SODIUM CHLORIDE 0.9% 1,000 ML IV SCH ×2 (10:31→18:40)
[2017-07-01] MEDS: NICOTINE 21MG/24HR PATCH TRANSDERM SCH (11:44)
[2017-07-01] MEDS: VANCOMYCIN 1,250 MG in SODIUM CHLORIDE 0.9% 250 ML IVPB SCH ×2 (15:19→22:36)
--- NOTE | 2017-07-01 15:55 | P.HPIM ---
History of Present Illness H&P Date: 07/01/17 Chief Complaint: Right leg pain and worsening swelling 42-year-old male with a past medical history of GERD and recent right lower reduction. MRSA cellulitis status post I&D and was sent home on Bactrim presents to the emergency department with a chief complaint of right leg swelling and fever. Patient had a spider bite at the beginning of the month. He was admitted for 9 days due to abscess and surgery needed for the area. Patient states he was sent home he was given 1 dose of IV antibiotics and then he has been on Bactrim ever since. Patient states her last 3 days he's noticed a fever and noticing some swelling to the area and he noticed some drainage from his surgical site. He also complains of chest pains. he also noticed right inguinal and cervical lymph node enlargement. Patient denies any recent shortness of breath, chest pain, back pain, abdominal pain, nausea vomiting, numbness or tingling, dysuria or hematuria, constipation or diarrhea, headaches or visual changes, or any other current symptoms. Review of Systems Constitutional: Does have fever and chills . No generalized weakness or weight loss. Abdomen: Patient denied nausea vomiting and diarrhea and abdominal pain. Cardiovascular: Patient denies any chest pain or short of breath no palpitations. Respiratory: patient denied any cough is from production. No shortness of breath Neurologic: Patient denied any numbness or tingling headache. Musculoskeletal: Right lower extremity pain and swelling. Skin: Negative Psychiatric: Negative Endocrine: No heat or cold intolerance. No recent weight gain. Genitourinary: No dysuria or hematuria. All other 14 point ROS negative except the above Past Medical History Past Medical History: GERD/Reflux, Osteoarthritis (OA) Additional Past Medical History / Comment(s): back pain History of Any Multi-Drug Resistant Organisms: MRSA Date of last positivie culture/infection: 06/14/17 MDRO Source:: LEG Past Surgical History: No Surgical Hx Reported Additional Past Surgical History / Comment(s): Colonoscopy x2 and EGD Past Psychological History: No Psychological Hx Reported Smoking Status: Current every day smoker Past Alcohol Use History: Occasional Past Drug Use History: None Reported - Past Family History Mother History Unknown: Yes Medications and Allergies Home Medications Medication Instructions Recorded Confirmed Type Acetaminophen [Tylenol Extra 2,000 mg PO DAILY PRN 06/12/17 06/30/17 History Strength] Ibuprofen [Motrin] 600 mg PO Q4HR PRN 06/12/17 06/30/17 History HYDROcodone/APAP 7.5-325MG [[place] 1 tab PO Q4H PRN 06/30/17 06/30/17 History 7.5-325] Allergies Allergy/AdvReac Type Severity Reaction Status Date / Time No Known Allergies Allergy Verified 06/30/17 19:17 Physical Exam Vitals: Vital Signs Temp Pulse Pulse Resp BP BP Pulse Ox 07/01/17 09:11 100.4 F H 07/01/17 07:00 102.3 F H 97 18 106/56 98 06/30/17 22:45 97.2 F L 73 18 113/65 97 06/30/17 21:52 98.8 F 65 16 121/65 97 06/30/17 20:37 99 F 88 18 112/66 98 06/30/17 19:17 101.2 F H 92 18 129/71 98 Intake and Output 06/30/17 07/01/17 07/01/17 22:59 06:59 14:59 Intake Total 200 Balance 200 Intake: Oral 200 Other: # Voids 1 1 Weight 71.6 kg \PHYSICAL EXAMINATION: Patient is lying in the bed comfortably, no acute distress, awake alert and oriented.. Anxious HEENT: Normocephalic. Neck is supple. Pupils reactive. Nostrils clear. Oral cavity is moist. Ears reveal no drainage. Neck reveals no JVD, carotid bruits, or thyromegaly. Patient does have cervical and right inguinal lymphadenopathy CHEST EXAMINATION: Trachea is central. Symmetrical expansion. Lung mendez clear to auscultation and percussion. CARDIAC: Normal S1, S2 with no gallops. No murmurs ABDOMEN: Soft. Bowel sounds normal. No organomegaly. No abdominal bruits. Extremities: reveal no edema. No clubbing or cyanosis Neurologically awake, alert, oriented x3 with well-coordinated movements. No focal deficits noted Skin: No rash or skin lesions. Psychiatric: Operative. Nonsuicidal Musculoskeletal: No joint swelling or deformity. Normal range of motion. Right lower extremity, around the right lower extremity valladares area redness swelling and drainage from the wound. Results CBC & Chem 7: 07/01/17 07:47 07/01/17 07:47 Labs: Abnormal Lab Results - Last 24 Hours (Table) 06/30/17 06/30/17 06/30/17 Range/Units 19:40 19:40 22:48 WBC 21.3 H (3.8-10.6) k/uL Neutrophils # 17.8 H (1.3-7.7) k/uL Lymphocytes # (1.0-4.8) k/uL Sodium (137-145) mmol/L POC Glucose (mg/dL) 103 H (75-99) mg/dL Calcium (8.4-10.2) mg/dL Alkaline Phosphatase 138 H (38-126) U/L Albumin (3.5-5.0) g/dL 07/01/17 07/01/17 Range/Units 07:47 07:47 WBC 11.6 H (3.8-10.6) k/uL Neutrophils # 9.5 H (1.3-7.7) k/uL Lymphocytes # 0.9 L (1.0-4.8) k/uL Sodium 135 L (137-145) mmol/L POC Glucose (mg/dL) (75-99) mg/dL Calcium 8.2 L (8.4-10.2) mg/dL Alkaline Phosphatase (38-126) U/L Albumin 3.2 L (3.5-5.0) g/dL Microbiology - Last 24 Hours (Table) 06/30/17 19:47 Gram Stain - Preliminary Leg - Right Wound Culture - Preliminary Thrombosis Risk Factor Assmnt - DVT/VTE Prophylaxis DVT/VTE Prophylaxis: Pharmacologic Prophylaxis ordered Assessment and Plan Plan: Right lower extremity MRSA cellulitis and abscess. Status post recent I&D Right cervical and inguinal lymphadenopathy gerd History of back pain DVT prophylaxis Plan: Patient will be continued on vancomycin and ceftazidime was added ID is on board. We'll continue the pain management with the [place] 2 tablets every 6 hourly and continue the Protonix. And a follow-up repeat blood cultures. Wound cultures will be obtained. Further recommendations based on the clinical course.
[2017-07-01] MEDS: PANTOPRAZOLE 40 MG TABLET PO SCH (16:09)
[2017-07-01] MEDS: HEPARIN SODIUM,PORCINE 5,000 UNIT/ML 1 ML VIAL SQ SCH (16:09)
[2017-07-01] MEDS: HYDROcodone/APAP 5-325MG 1 EACH TAB PO PRN ×2 (18:00→22:36)
[2017-07-02] MEDS: ALPRAZolam 0.25 MG TAB PO PRN ×3 (00:45→16:55)
[2017-07-02] MEDS: HEPARIN SODIUM,PORCINE 5,000 UNIT/ML 1 ML VIAL SQ SCH ×3 (00:46→15:25)
[2017-07-02] MEDS: HYDROcodone/APAP 5-325MG 1 EACH TAB PO PRN ×5 (03:56→20:53)
[2017-07-02] MEDS ORDERED: VANCOMYCIN TROUGH DUE 1 EACH MISC MISCELLANE ONE (05:00)
[2017-07-02 05:30] LABS: Anion Gap 9 mmol/L; Blood Urea Nitrogen 13 mg/dL (9-20); Calcium 8.7 mg/dL (8.4-10.2); Carbon Dioxide 21 mmol/L (22-30); Chloride 107 mmol/L (98-107); Glucose 82 mg/dL (74-99); Non-African American GFR(MDRD) >60 (>60 ml/min/1.73 sqM); Potassium 4.6 mmol/L (3.5-5.1); Sodium 137 mmol/L (137-145)
[2017-07-02] MEDS: SODIUM CHLORIDE 0.9% 1,000 ML IV SCH ×2 (06:27→12:59)
[2017-07-02] MEDS: VANCOMYCIN 1,250 MG in SODIUM CHLORIDE 0.9% 250 ML IVPB SCH (06:30)
[2017-07-02] MEDS: PANTOPRAZOLE 40 MG TABLET PO SCH (08:00)
[2017-07-02] MEDS: NICOTINE 21MG/24HR PATCH TRANSDERM SCH (08:01)
[2017-07-02] MEDS ORDERED: DOCUSATE 100 MG CAP PO PRN (14:12)
[2017-07-02 15:16] VITALS: RESP 18
[2017-07-02] MEDS: VANCOMYCIN 1,000 MG in SODIUM CHLORIDE 0.9% 250 ML IVPB SCH (16:56)
--- NOTE | 2017-07-02 19:45 | CONS ---
DATE OF CONSULTATION: 07/01/2017 REASON FOR CONSULTATION: Fever. HISTORY OF PRESENT ILLNESS: The patient is a 42-year-old male who was recently admitted ( ) and was treated for a right leg abscess and cellulitis. The patient had drainage of this abscess done. Cultures were positive for MRSA and Stenotrophomonas. However, repeated culture only positive for MRSA. The patient was treated with IV Fortaz and vancomycin and on discharge the patient received a dose of [place] and oral Bactrim DS which the patient is currently taking. The patient is supposed to follow up in the wound care center and the patient, after waiting for a half an hour, left without being seen. The patient said he was doing well and the wound was healing. However, on the weekend the patient started having a fever and was unable to get it under control. Patient also noticed to have some swelling in the groin area and some purulent discharge from the wound at the time of dressing change. With these symptoms the patient did present to the ER. The patient was evaluated by the ER physician. The patient did have some wound cultures obtained. He was started on vancomycin and I was asked to see the patient for recommendation regarding antibiotic therapy. REVIEW OF SYSTEMS: CONSTITUTIONAL: Positive for weakness and fever. EYES: No complaint. ENT: No complaint. RESPIRATORY: No complaint. CARDIOVASCULAR: No complaint. GENITOURINARY: No complaint. GASTROINTESTINAL: No complaint. MUSCULOSKELETAL: No complaint. INTEGUMENTARY: As per HPI. PSYCHOLOGIC: No complaint. ENDOCRINE: No complaint. NEUROLOGIC: No complaint. PAST MEDICAL HISTORY: Gastroesophageal reflux disease, osteoarthritis, right leg abscess, MRSA and Stenotrophomonas. PAST SURGICAL HISTORY: Right leg abscess drainage, colonoscopy x2 and EGD. SOCIAL HISTORY: The patient is a current everyday smoker, occasional alcohol intake. No drug use. FAMILY HISTORY: No pertinent findings noticed. ALLERGIES: No known drug allergies. MEDICATIONS: The patient is currently on Tylenol, [place], Xanax, heparin, vancomycin, Narcan, ( ), Protonix, Restoril. On examination, blood pressure is 103/46 with a pulse of 70, temperature 98.1, T -max of 102.3. He is 100% on room air. GENERAL DESCRIPTION: A middle-aged male lying in bed in no distress. No tachypnea or muscles of respiration use. HEENT: No pallor or scleral icterus. Oral mucosa dry. NECK: Trachea central. No thyromegaly. LUNGS: Unlabored breathing. Clear to auscultation anteriorly. HEART: S1/S2 regular. ABDOMEN: Soft. No tenderness. Examination of the right leg: The wound on the ( ) has decreased in size significantly. No purulence was noticed. Surrounding swelling has improved as well. NEUROLOGIC: The patient awake, alert, oriented x3. LABS: Hemoglobin 13.1, white count 11.7. White count admission was 21.3. BUN 17, creatinine 1.07. Cultures were obtained, currently pending. DIAGNOSTIC IMPRESSION: Patient admitted to the hospital with a fever and patient did have recent history of right leg abscess and cellulitis status post drainage of that abscess. Cultures were positive for Stenotrophomonas and methicillin-resistant Staphylococcus aureus. The patient's leg wound seems to be healing well, however, did have some pain in the groin area with the question of secondary wound infection with gram negative ( ). The patient admitted to the hospital with sepsis. PLAN: 1. We will give the patient vancomycin. Will add Fortaz while waiting for the culture final. 2. Blood cultures x2. 3. Aquacel silver packing of the wound. 4. Depending on the clinical response and culture, will adjust antibiotic further. MTDD
[2017-07-03] MEDS: SODIUM CHLORIDE 0.9% 1,000 ML IV SCH ×2 (00:05→09:20)
[2017-07-03] MEDS: HEPARIN SODIUM,PORCINE 5,000 UNIT/ML 1 ML VIAL SQ SCH ×2 (00:06→09:20)
--- NOTE | 2017-07-03 00:26 | P.PN ---
Subjective Principal diagnosis: Right lower extremity cellulitis 42-year-old male with a past medical history of GERD and recent right lower reduction. MRSA cellulitis status post I&D and was sent home on Bactrim presents to the emergency department with a chief complaint of right leg swelling and fever. Patient had a spider bite at the beginning of the month. He was admitted for 9 days due to abscess and surgery needed for the area. Patient states he was sent home he was given 1 dose of IV antibiotics and then he has been on Bactrim ever since. Patient states her last 3 days he's noticed a fever and noticing some swelling to the area and he noticed some drainage from his surgical site. He also complains of chest pains. he also noticed right inguinal and cervical lymph node enlargement. Patient denies any recent shortness of breath, chest pain, back pain, abdominal pain, nausea vomiting, numbness or tingling, dysuria or hematuria, constipation or diarrhea, headaches or visual changes, or any other current symptoms. 07/02/2017 Patient says that his right leg pain is much improved. Swelling improved as well. Wound dressing change. Blood cultures are still pending. Patient is complaining of constipation and stool softeners will be added. Patient is being continued on IV antibiotics in the form of vancomycin and ceftazidime. Awaiting culture reports. Objective - Vital Signs Vital signs: Vital Signs Temp 98.6 F 07/02/17 15:00 Pulse 78 07/02/17 15:00 Resp 18 07/02/17 15:00 BP 107/58 07/02/17 15:00 Pulse Ox 98 07/02/17 15:00 Intake & Output 07/02/17 07/02/17 07/03/17 06:59 18:59 06:59 Intake Total 580 Output Total 500 Balance 580 -500 Intake: Oral 580 Output: Urine 500 Other: Voiding Method Toilet # Voids 1 1 - Exam Patient is lying in the bed comfortably, no acute distress, awake alert and oriented.. Anxious HEENT: Normocephalic. Neck is supple. Pupils reactive. Nostrils clear. Oral cavity is moist. Ears reveal no drainage. Neck reveals no JVD, carotid bruits, or thyromegaly. Patient does have cervical and right inguinal lymphadenopathy CHEST EXAMINATION: Trachea is central. Symmetrical expansion. Lung mendez clear to auscultation and percussion. CARDIAC: Normal S1, S2 with no gallops. No murmurs ABDOMEN: Soft. Bowel sounds normal. No organomegaly. No abdominal bruits. Extremities: reveal no edema. No clubbing or cyanosis Neurologically awake, alert, oriented x3 with well-coordinated movements. No focal deficits noted Skin: No rash or skin lesions. Psychiatric: Operative. Nonsuicidal Musculoskeletal: No joint swelling or deformity. Normal range of motion. Right lower extremity, around the right lower extremity valladares area redness swelling and drainage from the wound. - Labs CBC & Chem 7: 07/01/17 07:47 07/02/17 04:52 Labs: Abnormal Lab Results - Last 24 Hours (Table) 07/02/17 Range/Units 04:52 Carbon Dioxide 21 L (22-30) mmol/L Microbiology - Last 24 Hours (Table) 06/30/17 19:40 Blood Culture - Preliminary Blood No Growth after 48 hours 06/30/17 19:47 Gram Stain - Final Leg - Right Wound Culture - Final Assessment and Plan Plan: Right lower extremity MRSA cellulitis and abscess. Status post recent I&D Right cervical and inguinal lymphadenopathy gerd History of back pain DVT prophylaxis Plan: Patient will be continued on vancomycin and ceftazidime was added. ID is on board. We'll continue the pain management with the [place] 2 tablets every 6 hourly and continue the Protonix. Wound cultures and blood cultures showed no growth so far. Further recommendations based on the clinical course.
[2017-07-03] MEDS: VANCOMYCIN 1,000 MG in SODIUM CHLORIDE 0.9% 250 ML IVPB SCH ×2 (01:09→10:33)
[2017-07-03] MEDS: HYDROcodone/APAP 5-325MG 1 EACH TAB PO PRN ×4 (01:10→14:15)
[2017-07-03] MEDS: ALPRAZolam 0.25 MG TAB PO PRN ×2 (01:10→09:21)
[2017-07-03 07:29] VITALS: BP 99/50; PULSE 56; TEMP 96.1
[2017-07-03 08:39] LABS: Appearance,Urine Clear (Clear); Bilirubin,Urine Negative (Negative); Glucose,Urine (UA) Negative (Negative); Ketones,Urine Negative (Negative); Leukocyte Esterase,Urine Negative (Negative); Nitrite,Urine Negative (Negative); PH, Urine 5.5 (5.0-8.0); Protein,Urine Negative (Negative); Specific Gravity,Urine 1.011 (1.001-1.035); UA Billing (MACRO vs. MICRO) CHEM; Urobilinogen,Urine <2.0 mg/dL (<2.0)
[2017-07-03] MEDS: PANTOPRAZOLE 40 MG TABLET PO SCH (09:18)
[2017-07-03] MEDS: NICOTINE 21MG/24HR PATCH TRANSDERM SCH (09:20)
[2017-07-03 10:03] LABS: Anion Gap 9 mmol/L; Blood Urea Nitrogen 9 mg/dL (9-20); Calcium 8.5 mg/dL (8.4-10.2); Carbon Dioxide 24 mmol/L (22-30); Chloride 106 mmol/L (98-107); Glucose 94 mg/dL (74-99); Non-African American GFR(MDRD) >60 (>60 ml/min/1.73 sqM); Potassium 4.8 mmol/L (3.5-5.1); Sodium 139 mmol/L (137-145)
[2017-07-03 10:18] LABS: Aty Lym Flag Slight; CH 30.1; CHCM 32.6; HCT 36.1 % (39.0-53.0); HDW 2.56; MCH 30.8 pg (25.0-35.0); MCHC 33.3 g/dL (31.0-37.0); Mean Platelet Volume 7.3; RDW 13.3 % (11.5-15.5); WBC 5.4 k/uL (3.8-10.6)
[2017-07-03 10:26] LABS: MCV 92.6 fL (80.0-100.0)
[2017-07-03 11:05] LABS: Add Differential Manual Differential
[2017-07-03 11:07] LABS: Manual Review Performed; Nucleated Red Blood Cells 0 /100 WBC (0-0); Total Cells Counted 100
--- NOTE | 2017-07-03 21:49 | PN ---
DATE OF SERVICE: 07/02/17 REASON FOR FOLLOW UP: Right leg wound and fever. INTERVAL HISTORY: The patient did have low grade fever this morning of 100.8. The patient still complaining of painful sores in his groin area. Denies significant chest pain, shortness of breath, cough, abdominal pain. No diarrhea. On examination, blood pressure 177/58 with a pulse of 78. Temperature 98.6. He is 98% on room air. General description is a middle aged male lying in the bed in no distress. Respiratory system unlabored breathing. Clear to auscultation anteriorly. Heart S1, S2 regular rate and rhythm. Abdomen soft. No tenderness. Right leg wound dressed, no drainage. LABS: BUN 13, creatinine 1.0. Vanco trough was 20. Blood and wound cultures so far negative. DIAGNOSTIC IMPRESSION AND PLAN: The patient admitted to the hospital with fever. The patient did have recent right leg abscess status post drainage. Cultures were positive for ( ) MRSA. Overall wound looks clean. Did have some evidence of inguinal lymphadenopathy with no scrotal ( ) lesions. UA will be checked. He will be kept on Vanco and Fortaz. Local wound care with Aquacel silver. Continue supportive care. MTDD
--- NOTE | 2017-07-03 23:22 | P.DS ---
Providers Date of admission: 06/30/17 21:56 Expected date of discharge: 07/03/17 Attending physician: Francisco Nelson Consults: 07/01/17 11:10 Consult Physician Urgent Consulting Provider: Matthew Corey Consult Reason/Comments: right leg cellulitis/open wound, known to pt. from past admission Do you want consulting provider notified?: Already Contacted Primary care physician: Fred Mendoza MD Hospital Course: Discharge diagnosis Right lower extremity cellulitis. Patient had recent MRSA cellulitis and abscess. Status post recent I&D Right cervical and inguinal lymphadenopathy gerd History of back pain DVT prophylaxis Hospital course 42-year-old male with a past medical history of GERD and recent right lower reduction. MRSA cellulitis status post I&D and was sent home on Bactrim presents to the emergency department with a chief complaint of right leg swelling and fever. Patient had a spider bite at the beginning of the month. He was admitted for 9 days due to abscess and surgery needed for the area. Patient states he was sent home he was given 1 dose of IV antibiotics and then he has been on Bactrim ever since. Patient states her last 3 days he's noticed a fever and noticing some swelling to the area and he noticed some drainage from his surgical site. He also complains of chest pains. he also noticed right inguinal and cervical lymph node enlargement. Patient denies any recent shortness of breath, chest pain, back pain, abdominal pain, nausea vomiting, numbness or tingling, dysuria or hematuria, constipation or diarrhea, headaches or visual changes, or any other current symptoms. 07/02/2017 Patient says that his right leg pain is much improved. Swelling improved as well. Wound dressing change. Blood cultures are still pending. Patient is complaining of constipation and stool softeners will be added. Patient is being continued on IV antibiotics in the form of vancomycin and ceftazidime. Awaiting culture reports. 07/03/2017 Patient denied any new complaints today. Patient has been afebrile since yesterday afternoon. Cultures showed no growth. Patient be continued on antibiotics changed to by mouth as per ID recommendations and the patient is stable to be discharged home. Patient was continued on vancomycin and ceftazidime was added. ID is on board. Wound cultures and blood cultures showed no growth so far. Patient will be continued on doxycycline upon discharge. PHYSICAL EXAMINATION: Patient is lying in the bed comfortably, no acute distress, awake alert and oriented.. HEENT: Normocephalic. Neck is supple. Pupils reactive. Nostrils clear. Oral cavity is moist. Ears reveal no drainage. Neck reveals no JVD, carotid bruits, or thyromegaly. Cervical and inguinal lymphadenopathy improved CHEST EXAMINATION: Trachea is central. Symmetrical expansion. Lung mendez clear to auscultation and percussion. CARDIAC: Normal S1, S2 with no gallops. No murmurs ABDOMEN: Soft. Bowel sounds normal. No organomegaly. No abdominal bruits. Extremities reveal no edema. No clubbing or cyanosis . Right lower extremity redness and swelling improved Neurologically awake, alert, oriented x3 with well-coordinated movements. Skin: no rash or skin lesions Musculoskeletal: no joint swelling or deformity. Patient Condition at Discharge: Good Plan - Discharge Summary New Discharge Prescriptions: New Docusate [Colace] 100 mg PO BID PRN #30 cap PRN Reason: Constipation Doxycycline Hyclate 100 mg PO BID #20 tab Continue Ibuprofen [Motrin] 600 mg PO Q4HR PRN PRN Reason: Pain Temazepam [Restoril] 15 mg PO HS PRN #15 cap PRN Reason: Insomnia ALPRAZolam [Xanax] 0.25 mg PO TID PRN #20 tab PRN Reason: Anxiety HYDROcodone/APAP 7.5-325MG [[place] 7.5-325] 1 tab PO Q4H PRN #30 PRN Reason: pain scale 1-5 Discontinued Acetaminophen [Tylenol Extra Strength] 2,000 mg PO DAILY PRN PRN Reason: Pain Discharge Medication List Ibuprofen [Motrin] 600 mg PO Q4HR PRN 06/12/17 [History] Temazepam [Restoril] 15 mg PO HS PRN #15 cap 06/19/17 [Rx] ALPRAZolam [Xanax] 0.25 mg PO TID PRN #20 tab 07/03/17 [Rx] Docusate [Colace] 100 mg PO BID PRN #30 cap 07/03/17 [Rx] Doxycycline Hyclate 100 mg PO BID #20 tab 07/03/17 [Rx] HYDROcodone/APAP 7.5-325MG [[place] 7.5-325] 1 tab PO Q4H PRN #30 07/03/17 [Rx] Follow up Appointment(s)/Referral(s): Luci Najera MD [STAFF PHYSICIAN] - 07/10/17 3:30 pm Matthew Corey MD [STAFF PHYSICIAN] - 07/11/17 11:30 am Patient Instructions/Handouts: Cellulitis (DC), Acute Wound Care (DC) Activity/Diet/Wound Care/Special Instructions: No smoking, cessation information provided. Regular diet. Wound care : Discharge Disposition: HOME SELF-CARE
--- NOTE | 2017-07-04 08:44 | PN ---
DATE OF SERVICE: 07/03/2017 REASON FOR FOLLOW UP: Fever and possible right leg wound infection. INTERVAL HISTORY: The patient is afebrile. He has been feeling better, breathing comfortably. Patient denies significant chest pain and shortness of breath. No cough or abdominal pain or any diarrhea. On examination: Blood pressure 99/58 with pulse 56. Temperature 96.1. He is 100 % on room air. General description is a middle-aged male lying in bed in no distress. RESPIRATORY: Unlabored breathing. Clear to auscultation anteriorly. HEART: S1, S2 regular rate and rhythm. ABDOMEN: Soft, no tenderness. EXTREMITIES: Right leg wound has significantly improved. No purulence. No surrounding redness or tenderness. LABS: Hemoglobin is 12.5, white count 5.4, BUN 9, creatinine 0.80. Urinalysis has been negative. Wound culture negative. Blood culture negative. DIAGNOSTIC IMPRESSION AND PLAN: Patient admitted to the hospital with fever with concern for possible wound infection. So far the wound cultures are negative. The blood cultures are negative. No other clear focus of infection. Would recommend local wound care with Aquacel silver and switch him over to doxycycline 100 mg twice a day for 10 days with outpatient followup. MERYL
== END 2017-07-03 15:04 | disposition home or self-care (01) | DRG 872 ==
LOC: EC 19:08 → 4MS4W 21:56
PROVIDERS: ADMIT Hospitalist; ATTEND Hospitalist
DX: A41.9 Sepsis, unspecified organism (principal); L02.415 Cutaneous abscess of right lower limb; L03.115 Cellulitis of right lower limb; K21.9 Gastro-esophageal reflux disease without esophagitis; K59.00 Constipation, unspecified; T63.301S Toxic effect of unspecified spider venom, accidental (unintentional), sequela; R07.9 Chest pain, unspecified; R53.1 Weakness; F17.200 Nicotine dependence, unspecified, uncomplicated; Z71.6 Tobacco abuse counseling; Z98.890 Other specified postprocedural states; Z79.2 Long term (current) use of antibiotics; Z79.899 Other long term (current) drug therapy; Z86.14 Personal history of Methicillin resistant Staphylococcus aureus infection; Z91.19 Patient's noncompliance with other medical treatment and regimen; Z86.19 Personal history of other infectious and parasitic diseases; R59.0 Localized enlarged lymph nodes
CPT/HCPCS: 36415; 80048; 80053; 80202; 81003; 83605; 85025; 87040; 87070; 87086; 87205; 93005; 96365; 96366; 99284

== ENCOUNTER 2018-04-03 09:30 | Emergency (ER) | payer OTHER ==
[2018-04-03 09:44] VITALS: BP 132/86; PULSE 79; RESP 16; TEMP 98.5
[2018-04-03] MEDS ORDERED: ONDANSETRON ODT 4 MG TAB PO STA (09:55)
[2018-04-03] MEDS ORDERED: HYDROcodone/APAP 5-325MG 1 EACH TAB PO STA (09:55)
--- NOTE | 2018-04-03 09:57 | ED ---
Lower Extremity Injury HPI - General Chief Complaint: Extremity Injury, Lower Stated Complaint: Broken ankle Time Seen by Provider: 04/03/18 09:47 Source: patient, RN notes reviewed Mode of arrival: ambulatory Limitations: no limitations - History of Present Illness Initial Comments: This a 43-year-old male presents emergency department to complaint of left ankle and foot pain. Patient states that he was on a trailer in which they were loading wood onto states that he jumped off and landed on the edge of the curb. He states his ankle rolled and he felt a pop in the and foot region. He' s had no prior fractures. He states it's very painful, swollen today. He states the pain is making him nauseated. Patient has no upper tib-fib pain or any knee or hip pain. Patient denies any paresthesias. - Related Data Home Medications Medication Instructions Recorded Confirmed Acetaminophen [Tylenol] 325 mg PO Q6H PRN 04/03/18 04/03/18 Dicyclomine [Bentyl] 20 mg PO QID PRN 04/03/18 04/03/18 Ibuprofen [Motrin Ib] 200 mg PO Q6H PRN 04/03/18 04/03/18 Omeprazole 20 mg PO DAILY 04/03/18 04/03/18 Varenicline [Chantix Starter Pack] See Taper PO DIRECTED 04/03/18 04/03/18 traZODone HCL [TraZODone HCl] 50 mg PO HS PRN 04/03/18 04/03/18 Previous Rx's Medication Instructions Recorded Acetaminophen-Codeine 300-30mg 1 tab PO Q4H PRN #14 tablet 04/03/18 [Tylenol #3] Ibuprofen [Motrin] 600 mg PO Q8HR PRN #30 tab 04/03/18 Allergies Allergy/AdvReac Type Severity Reaction Status Date / Time No Known Allergies Allergy Verified 04/03/18 09:54 Review of Systems ROS Statement: Those systems with pertinent positive or pertinent negative responses have been documented in the HPI. ROS Other: All systems not noted in ROS Statement are negative. Past Medical History Past Medical History: GERD/Reflux, Osteoarthritis (OA) Additional Past Medical History / Comment(s): back pain History of Any Multi-Drug Resistant Organisms: MRSA Date of last positivie culture/infection: 06/14/17 MDRO Source:: LEG Past Surgical History: No Surgical Hx Reported Additional Past Surgical History / Comment(s): Colonoscopy x2 and EGD Past Psychological History: No Psychological Hx Reported Smoking Status: Current every day smoker Past Alcohol Use History: Occasional Past Drug Use History: None Reported - Past Family History Mother History Unknown: Yes General Exam Limitations: no limitations General appearance: alert, in no apparent distress Head exam: Present: atraumatic, normocephalic, normal inspection Eye exam: Present: normal appearance, PERRL, EOMI. Absent: scleral icterus, conjunctival injection, periorbital swelling Respiratory exam: Present: normal lung sounds bilaterally. Absent: respiratory distress, wheezes, rales, rhonchi, stridor Cardiovascular Exam: Present: regular rate, normal rhythm, normal heart sounds. Absent: systolic murmur, diastolic murmur, rubs, gallop, clicks Extremities exam: Present: other (Left ankle there is moderate swelling and ecchymosis severe times with palpation lateral malleolus there is muscle in the left foot tenderness lateral foot aspect neurovascular intact there is no proximal tib-fib tenderness) Neurological exam: Present: alert, oriented X3, CN II-XII intact Skin exam: Present: warm, dry, intact, normal color. Absent: rash Course Vital Signs 04/03/18 09:43 Temperature 98.5 F Pulse Rate 79 Respiratory 16 Rate Blood Pressure 132/86 O2 Sat by Pulse 99 Oximetry Medical Decision Making - Medical Decision Making 43-year-old male presents emergency Department with left ankle injury. X-rays were reviewed there is no acute fracture. Patient has a left ankle sprain. Patient was placed in [facility] discharged with anti-inflammatories and pain medication. Return parameters were discussed. Disposition Clinical Impression: Left ankle sprain Disposition: HOME SELF-CARE Condition: Stable Instructions: Ankle Sprain (ED) Additional Instructions: Please return to the Emergency Department if symptoms worsen or any other concerns. Prescriptions: Acetaminophen-Codeine 300-30mg [Tylenol #3] 1 tab PO Q4H PRN #14 tablet PRN Reason: pain Ibuprofen [Motrin] 600 mg PO Q8HR PRN #30 tab PRN Reason: Pain Is patient prescribed a controlled substance at d/c from ED?: Yes When asked, does pt state using other controlled substances?: No If prescribed controlled substance>3 days was MAPS reviewed?: Prescribed <3 Days If opioid is for acute pain is fill amount 7 days or less?: Yes Referrals: Luci Najera MD [Primary Care Provider] - 1-2 days Darryl Srivastava DO [Doctor of Osteopathic Medicine] - 1-2 days Time of Disposition: 10:38
--- NOTE | 2018-04-03 10:33 | XR ---
EXAMINATION TYPE: XR foot complete LT, XR ankle complete LT DATE OF EXAM: 04/03/2018 CLINICAL HISTORY: Left foot and ankle pain after a fall TECHNIQUE: Frontal, lateral and oblique images of the left ankle and foot are obtained. COMPARISON: None. FINDINGS: There is no acute fracture/dislocation evident in the left ankle. The ankle mortise appea rs within normal limits. The overlying soft tissue appears unremarkable. There is no acute fracture or dislocation evident in the left foot. The joint spaces in the left foot are preserved. Moderate a mount of soft tissue swelling is seen overlying the left ankle joint. IMPRESSION: Moderate amount of soft tissue swelling surrounding the left ankle joint without acute fr acture or dislocation in the left ankle or foot.
== END 2018-04-03 10:45 | disposition home or self-care (01) ==
LOC: EC 09:30
DX: S93.402A Sprain of unspecified ligament of left ankle, initial encounter (principal); K21.9 Gastro-esophageal reflux disease without esophagitis; M19.90 Unspecified osteoarthritis, unspecified site; F17.200 Nicotine dependence, unspecified, uncomplicated; Z86.14 Personal history of Methicillin resistant Staphylococcus aureus infection; Z79.899 Other long term (current) drug therapy; X50.1XXA Overexertion from prolonged static or awkward postures, initial encounter; Y93.39 Activity, other involving climbing, rappelling and jumping off
CPT/HCPCS: 99283

== ENCOUNTER → 2018-05-05 | Outpatient (CLI) | payer OTHER ==
[2018-05-05 10:18] LABS: Basophils # (A) 0.1 k/uL (0-0.2); Basophils % (A) 1 %; Eosinophils # (A) 0.2 k/uL (0-0.7); Eosinophils % (A) 2 %; HCT 49.1 % (39.0-53.0); HGB 15.9 gm/dL (13.0-17.5); Lymphocytes # (A) 2.4 k/uL (1.0-4.8); Lymphocytes % (A) 29 %; MCH 30.5 pg (25.0-35.0); MCHC 32.4 g/dL (31.0-37.0); MCV 94.2 fL (80.0-100.0); Mean Platelet Volume 7.4; Monocytes # (A) 0.5 k/uL (0-1.0); Monocytes % (A) 5 %; Neutrophils # (A) 5.2 k/uL (1.3-7.7); Neutrophils % (A) 61 %; Platelet Count 279 k/uL (150-450); RBC 5.22 m/uL (4.30-5.90); RDW 12.8 % (11.5-15.5); WBC 8.4 k/uL (3.8-10.6)
[2018-05-05 10:29] LABS: ALT 67 U/L (21-72); AST 38 U/L (17-59); Albumin 4.6 g/dL (3.5-5.0); Alkaline Phosphatase 92 U/L (38-126); Anion Gap 11 mmol/L; Blood Urea Nitrogen 14 mg/dL (9-20); Calcium 9.6 mg/dL (8.4-10.2); Carbon Dioxide 27 mmol/L (22-30); Chloride 103 mmol/L (98-107); Glucose 84 mg/dL (74-99); Potassium 4.7 mmol/L (3.5-5.1); Sodium 141 mmol/L (137-145); Total Bilirubin 0.6 mg/dL (0.2-1.3)
[2018-05-07 14:21] LABS: Hepatits C Virus RNA DETECTED (Not detected); LOG HCV IU/mL 5.65 (<1.08)
== END | disposition home or self-care (01) ==
LOC: LABWHC1 09:27
DX: B18.2 Chronic viral hepatitis C (principal)
CPT/HCPCS: 36415; 80053; 82105; 85025; 87522

== ENCOUNTER 2018-08-10 19:08 | Emergency (ER) | payer OTHER ==
[2018-08-10] MEDS ORDERED: PROPARACAINE 0.5% OPHTH DROPS 15 ML BTL ONE (19:40)
[2018-08-10] MEDS ORDERED: ERYTHROMYCIN 5 MG/GM OPHTH OINT 3.5 GM TUBE RIGHT EYE STA (20:35)
[2018-08-10] MEDS ORDERED: PROPARACAINE 0.5% OPHTH DROPS 15 ML BTL RIGHT EYE STA (20:41)
[2018-08-10] MEDS ORDERED: KETOROLAC 30 MG/ML 1 ML VIAL IM STA (21:26)
--- NOTE | 2018-08-10 22:13 | CT ---
EXAMINATION TYPE: CT orbits wo con DATE OF EXAM: 08/10/2018 COMPARISON: None HISTORY: Right orbital FB from drill bit. Pain. CT DLP: 440.7 mGycm Automated exposure control for dose reduction was used. FINDINGS: Multiple axial sections were obtained from the top of the frontal sinuses to the bottom of the maxill a with no contrast. Maxilla is intact. Zygomatic arches appear normal. Nasal bone is intact. There is 2 cm mucous retenti on cyst left maxillary sinus. There is mucosal thickening in the ethmoid air cells. The globes are sy mmetric. There is no evidence of retro-orbital mass. There is no sign of radiopaque foreign body. The re is no evidence of a blowout fracture. There is some mucosal thickening at the ostiomeatal complex bilaterally. IMPRESSION: MAXILLARY MILD SINUSITIS. MILD ETHMOID SINUSITIS. NO EVIDENCE OF A FOREIGN BODY IN THE ORBITS.
--- NOTE | 2018-08-10 22:26 | ED ---
General Adult HPI - General Chief complaint: ENT Stated complaint: Eye Injury Time Seen by Provider: 08/10/18 20:06 Source: patient, RN notes reviewed Mode of arrival: ambulatory Limitations: no limitations - History of Present Illness Initial comments: 43-year-old male presents to the emergency department for a chief complaint of right eye pain 4 hours. Patient states he was using a drill on a car when he felt something go into his eye. Patient states he has had pain and blurry vision since that time. Patient denies any other changes in vision. Patient states he washed his eye out thoroughly. He states he feels as if he scratched his eye or as if there is something in his eye. Tetanus is up to date. Patient has no other complaints at this time including shortness of breath, chest pain, abdominal pain, nausea or vomiting, headache, or visual changes. - Related Data Home Medications Medication Instructions Recorded Confirmed traZODone HCL [TraZODone HCl] 50 mg PO HS PRN 04/03/18 08/10/18 Previous Rx's Medication Instructions Recorded Erythromycin Ophth Oint [Romycin 1 applic RIGHT EYE QID 7 Days gm 08/10/18 Ophth Oint] Allergies Allergy/AdvReac Type Severity Reaction Status Date / Time No Known Allergies Allergy Verified 08/10/18 19:24 Review of Systems ROS Statement: Those systems with pertinent positive or pertinent negative responses have been documented in the HPI. ROS Other: All systems not noted in ROS Statement are negative. Past Medical History Past Medical History: GERD/Reflux, Osteoarthritis (OA) Additional Past Medical History / Comment(s): back pain History of Any Multi-Drug Resistant Organisms: MRSA Date of last positivie culture/infection: 06/14/17 MDRO Source:: LEG Past Surgical History: No Surgical Hx Reported Additional Past Surgical History / Comment(s): Colonoscopy x2 and EGD Past Psychological History: No Psychological Hx Reported Smoking Status: Current every day smoker Past Alcohol Use History: Occasional Past Drug Use History: None Reported - Past Family History Mother History Unknown: Yes General Exam Limitations: no limitations General appearance: alert, in no apparent distress Head exam: Present: atraumatic, normocephalic, normal inspection Eye exam: Present: PERRL (No pain with movement of the eye.), EOMI, conjunctival injection (Erythema and irritation noted to the right conjunctiva.) , other (Eye was stained with proparacaine. Patient does have small abrasion noted to cornea at 6:00. negative siedel sign. the eye was inspected thoroughly for foreign body and none was found. Both eyelids were flipped and no foreign bodies noted under eyelid.). Absent: scleral icterus, nystagmus, periorbital swelling, periorbital tenderness Expanded Eyelids: Normal Inspection: Bilateral Pupils: Regular, Round: Bilateral Sclera/Conjunctival: Normal Inspection: Left, Injection: Right IOP (R) in mmH IOP (L) in mmH IOP measured with: [employer] ENT exam: Present: normal exam, normal oropharynx, mucous membranes moist, TM's normal bilaterally, normal external ear exam Neck exam: Present: normal inspection, full ROM. Absent: tenderness, meningismus, lymphadenopathy Respiratory exam: Present: normal lung sounds bilaterally. Absent: respiratory distress, wheezes, rales, rhonchi, stridor Cardiovascular Exam: Present: regular rate, normal rhythm, normal heart sounds. Absent: systolic murmur, diastolic murmur, rubs, gallop, clicks Course Vital Signs 08/10/18 19:20 Temperature 98.5 F Pulse Rate 75 Respiratory 16 Rate Blood Pressure 136/73 O2 Sat by Pulse 98 Oximetry Medical Decision Making - Medical Decision Making 43-year-old male presents to the emergency room for a chief complaint of right eye injury. Patient states he was drilling on his car when he felt some thing go into his eye. Patient states he washed the eye out thoroughly. He states vision is blurry but denies any other changes. EOMI and PERRLA. No foreign body noted in the eye. No rust ring. Both lids were flipped and no foreign body found under lids. Eye was stained with proparacaine and a small abrasion was noted to the cornea at 6:00. No other abrasions noted. CT of the orbit showed no evidence of foreign body in the orbits. Patient was given erythromycin in the emergency department. He states pain is somewhat better after receiving Toradol. On reevaluation patient is ready to go home. He is well appearing. I did recommend following up with follow up manager tomorrow and returning if he has any worsening symptoms which patient is aware of. Disposition Clinical Impression: Corneal abrasion Disposition: HOME SELF-CARE Condition: Good Instructions: Corneal Abrasion (ED) Additional Instructions: Please use antibiotic ointment 4 times a day for 7 days. Please follow-up with ophthalmology tomorrow if symptoms do not resolve. Please return to the emergency department if you have any worsening symptoms. Prescriptions: Erythromycin Ophth Oint [Romycin Ophth Oint] 1 applic RIGHT EYE QID 7 Days gm Is patient prescribed a controlled substance at d/c from ED?: No Referrals: Luci Najera MD [Primary Care Provider] - 1-2 days César Bass MD [STAFF PHYSICIAN] - 1-2 days Time of Disposition: 22:23
[2018-08-10 22:33] VITALS: BP 139/81; PULSE 54; RESP 18; TEMP 98.2
== END 2018-08-10 22:33 | disposition home or self-care (01) ==
LOC: EC 19:08
DX: S05.01XA Injury of conjunctiva and corneal abrasion without foreign body, right eye, initial encounter (principal); X58.XXXA Exposure to other specified factors, initial encounter; F17.200 Nicotine dependence, unspecified, uncomplicated; Z86.14 Personal history of Methicillin resistant Staphylococcus aureus infection
CPT/HCPCS: 70480; 99284; 96372; J1885

== ENCOUNTER → 2019-02-09 | Outpatient (CLI) | payer OTHER ==
[2019-02-09 16:57] LABS: Basophils # (A) 0.1 k/uL (0-0.2); Basophils % (A) 1 %; Eosinophils # (A) 0.2 k/uL (0-0.7); Eosinophils % (A) 2 %; HCT 45.4 % (39.0-53.0); HGB 15.1 gm/dL (13.0-17.5); Lymphocytes # (A) 2.8 k/uL (1.0-4.8); Lymphocytes % (A) 29 %; MCH 30.6 pg (25.0-35.0); MCHC 33.2 g/dL (31.0-37.0); Mean Platelet Volume 7.4; Monocytes # (A) 0.4 k/uL (0-1.0); Monocytes % (A) 4 %; Neutrophils # (A) 6.1 k/uL (1.3-7.7); Neutrophils % (A) 64 %; Platelet Count 259 k/uL (150-450); RBC 4.93 m/uL (4.30-5.90); RDW 12.7 % (11.5-15.5); WBC 9.7 k/uL (3.8-10.6)
[2019-02-09 23:38] LABS: Albumin 4.3 g/dL (3.80-4.90); Albumin/Globulin Ratio 1.72 (1.60-3.17); Anion Gap 5.6 mmol/L (4.00-12.00); Carbon Dioxide 27.4 mmol/L (21.6-31.8); Globulin 2.5 g/dL (1.6-3.3); Potassium 4.5 mmol/L (3.5-5.5); Total Bilirubin 0.2 mg/dL (0.3-1.2); Total Protein 6.8 g/dL (6.2-8.2)
[2019-02-10 13:15] LABS: Hepatits C Virus RNA DETECTED (Not detected)
== END ==
LOC: LABWHC1 16:12
DX: B18.2 Chronic viral hepatitis C (principal)
CPT/HCPCS: 36415; 80053; 85025; 87522

== ENCOUNTER 2019-09-04 18:30 | Emergency (ER) | payer OTHER ==
[2019-09-04] MEDS ORDERED: MORPHINE SULFATE 4 MG/ML SYRINGE IVP STA (18:42)
[2019-09-04] MEDS ORDERED: MORPHINE SULFATE 2 MG/ML SYRINGE IVP ONE (19:05)
[2019-09-04] MEDS ORDERED: LIDOCAINE 1% INJ 10MG/ML (20 ML MDV) SQ ONE (19:06)
--- NOTE | 2019-09-04 19:06 | ED ---
General Adult HPI - General Chief complaint: Trauma Stated complaint: left hand injury (log splitter) Time Seen by Provider: 09/04/19 18:36 Source: patient Mode of arrival: ambulatory Limitations: no limitations - History of Present Illness Initial comments: Patient is a 44-year-old male presenting to emergency by with a chief complaint of finger pain. Patient reports that he injured the distal end of his third digit on the left hand using a log splitter about one hour prior to ED arrival. Patient reports he feels throbbing 10/10 pain. Tetanus up-to-date. Patient denies taking any medication to alleviate the symptoms. Patient still has full range of motion his middle finger. Patient does report that he is hep C positive. Severity scale (1-10): 10 - Related Data Home Medications Medication Instructions Recorded Confirmed traZODone HCL [TraZODone HCl] 50 mg PO HS PRN 04/03/18 08/10/18 Previous Rx's Medication Instructions Recorded Erythromycin Ophth Oint [Romycin 1 applic RIGHT EYE QID 7 Days gm 08/10/18 Ophth Oint] Allergies Allergy/AdvReac Type Severity Reaction Status Date / Time No Known Allergies Allergy Verified 09/04/19 18:36 Review of Systems ROS Statement: Those systems with pertinent positive or pertinent negative responses have been documented in the HPI. ROS Other: All systems not noted in ROS Statement are negative. Past Medical History Past Medical History: GERD/Reflux, Osteoarthritis (OA) Additional Past Medical History / Comment(s): back pain, hep c, History of Any Multi-Drug Resistant Organisms: MRSA Date of last positivie culture/infection: 06/14/17 MDRO Source:: LEG Past Surgical History: No Surgical Hx Reported Additional Past Surgical History / Comment(s): Colonoscopy x2 and EGD, I&d right leg Past Psychological History: No Psychological Hx Reported Smoking Status: Current every day smoker Past Alcohol Use History: Occasional Past Drug Use History: None Reported - Past Family History Mother History Unknown: Yes General Exam Limitations: no limitations General appearance: alert, in no apparent distress Head exam: Present: atraumatic, normocephalic, normal inspection Eye exam: Present: normal appearance Pupils: Present: normal accommodation ENT exam: Present: normal exam, mucous membranes moist Neck exam: Present: normal inspection, full ROM Respiratory exam: Present: normal lung sounds bilaterally Cardiovascular Exam: Present: regular rate, normal rhythm, normal heart sounds Extremities exam: Present: full ROM (4 range of motion of the left middle finger), tenderness (Tenderness at the site of injury), normal capillary refill. Absent: normal inspection (Crush injury to the distal end of the left middle finger. No bones detected.) Back exam: Present: normal inspection, full ROM Neurological exam: Present: alert, oriented X3 Psychiatric exam: Present: normal affect, normal mood Skin exam: Present: warm, intact, normal color Course Vital Signs 09/04/19 18:33 Temperature 98.0 F Pulse Rate 100 Respiratory 22 Rate Blood Pressure 166/112 O2 Sat by Pulse 98 Oximetry Procedures - Laceration Laceration #1 Consent Obtained: verbal consent Indication: laceration Site: other (Left middle finger) Size (cm): 1 (Tuft fracture) Description: linear, flap, irregular Depth: simple, single layer Sedation/Analgesia: none Anesthetic Used: lidocaine 1% Anesthesia Technique: local infiltration, nerve block Amount (mls): 10 Pre-repair: irrigated extensively, wound margins revised Type of Sutures: nylon Size of Sutures: 4-0 Number of Sutures: 5 Technique: simple, interrupted Complications: pain Patient Tolerated Procedure: well, no complications Medical Decision Making - Medical Decision Making Patient is a 44-year-old male presenting to the emergency department with a chief complaint of head injury. Based on physical examination this appears to be a crush injury on the left distal middle finger. Patient has full range of motion in the finger. There is a laceration on the distal end of the finger away from the nail. No injury to the nailbed. Laceration repair was performed with 5 through the nail. Patient given morphine for pain control. X-rays indicative of a displaced, commuted tuft fracture. Patient given Tylenol 3 to go home with. Patient advised about the possible side effects of the medication. Patient advised to return to emergency department in 10-14 days for suture removal. Patient advised to follow-up with orthopedics for more maureen gement. Strict return parameters were thoroughly discussed with patient was understanding and agreeable. Patient vised alternate between Tylenol and ibuprofen control. Case discussed physician. Disposition Clinical Impression: Closed fracture of tuft of distal phalanx of finger, Laceration of finger of left hand Disposition: HOME SELF-CARE Condition: Stable Instructions (If sedation given, give patient instructions): Finger Fracture (ED) Additional Instructions: Please return to emergency department for suture removal in 10-14 days. Alternate between Tylenol and ibuprofen for pain control. Is patient prescribed a controlled substance at d/c from ED?: No Referrals: Luci Najera MD [Primary Care Provider] - 1-2 days Leonardo Aparicio MD [Medical Doctor] - 1-2 days Time of Disposition: 20:32
[2019-09-04] MEDS ORDERED: DIPH,PERTUS(ACELL)TETVAC-LF 0.5 ML VIAL IM ONE (19:16)
--- NOTE | 2019-09-04 19:48 | XR ---
PROCEDURE: XR hand limited LT - 3V DATE AND TIME: 09/04/2019 7:05 PM CLINICAL INDICATION: PHH; middle finger trauma, pain TECHNIQUE: Department protocol COMPARISON: None FINDINGS: There is a comminuted crush fracture injury of the tuft of the distal phalanx of the middle finger near the lateral view shows one half shaft width posterior displacement, and also shows invol vement of the nailbed. The remainder of the third finger is negative for additional fracture or malalignment. The hand is negative for additional fracture or malalignment. IMPRESSION: Displaced comminuted fracture of the tuft of the distal phalanx of the third finger.
[2019-09-04] MEDS ORDERED: ACET/COD 300 MG/30 MG STARTER PACK 6 TAB BTL PO STA (20:29)
[2019-09-04 21:10] VITALS: BP 157/92; PULSE 90; RESP 18; TEMP 97.8
== END 2019-09-04 20:50 | disposition home or self-care (01) ==
LOC: EC 18:30
DX: S62.633B Displaced fracture of distal phalanx of left middle finger, initial encounter for open fracture (principal); F17.200 Nicotine dependence, unspecified, uncomplicated; Z86.14 Personal history of Methicillin resistant Staphylococcus aureus infection; W31.2XXA Contact with powered woodworking and forming machines, initial encounter; Y93.89 Activity, other specified; Z53.20 Procedure and treatment not carried out because of patient's decision for unspecified reasons
CPT/HCPCS: 73120; 99283; 12001; 96374; J2270 ×2; J2001

== ENCOUNTER 2020-08-26 08:16 | Emergency (ER) | payer OTHER ==
[2020-08-26 08:21] VITALS: RESP 18; TEMP 96.9
[2020-08-26] MEDS ORDERED: SODIUM CHLORIDE 0.9% 1,000 ML IV STA (08:28)
[2020-08-26] MEDS ORDERED: ONDANSETRON 4 MG/2 ML VIAL IVP STA (08:28)
[2020-08-26] MEDS ORDERED: HYDROmorphone 0.5 MG/0.5 ML SYRINGE IVP STA ×2 (08:28→09:57)
--- NOTE | 2020-08-26 08:52 | ED ---
Abdominal Pain HPI - General Chief Complaint: Abdominal Pain Stated Complaint: abd pain Time Seen by Provider: 08/26/20 08:22 Source: patient, RN notes reviewed Mode of arrival: EMS Limitations: no limitations - History of Present Illness Initial Comments: 45-year-old male presents emergency Department chief complaint abdominal pain. Patient's been having ongoing abdominal issues in which she is scheduled for CT. Patient states the pain is getting worse and states his been vomiting all morning. Patient states that she has severe right-sided pain does worsen when he eats. He has no back pain no chest pain or shortness of breath he's had severe diarrhea today no melena hematochezia no dysuria no hematuria no fevers or chills no sick contacts. - Related Data Home Medications Medication Instructions Recorded Confirmed FLUoxetine HCL [PROzac] 10 mg PO DAILY 08/26/20 08/26/20 Famotidine [Pepcid] 20 mg PO HS 08/26/20 08/26/20 Meclizine HCl 25 mg PO BID PRN 08/26/20 08/26/20 Allergies Allergy/AdvReac Type Severity Reaction Status Date / Time No Known Allergies Allergy Verified 08/26/20 09:16 Review of Systems ROS Statement: Those systems with pertinent positive or pertinent negative responses have been documented in the HPI. ROS Other: All systems not noted in ROS Statement are negative. Past Medical History Past Medical History: GERD/Reflux, Osteoarthritis (OA) Additional Past Medical History / Comment(s): back pain, hep c, History of Any Multi-Drug Resistant Organisms: MRSA Date of last positivie culture/infection: 06/14/17 MDRO Source:: LEG Past Surgical History: No Surgical Hx Reported Additional Past Surgical History / Comment(s): Colonoscopy x2 and EGD, I&d right leg Past Psychological History: No Psychological Hx Reported Smoking Status: Current every day smoker Past Alcohol Use History: Occasional Past Drug Use History: Marijuana - Past Family History Mother History Unknown: Yes General Exam Limitations: no limitations General appearance: alert, in no apparent distress Head exam: Present: atraumatic, normocephalic, normal inspection Eye exam: Present: normal appearance, PERRL, EOMI. Absent: scleral icterus, conjunctival injection, periorbital swelling ENT exam: Present: normal exam, mucous membranes moist Neck exam: Present: normal inspection. Absent: tenderness, meningismus, lymphadenopathy Respiratory exam: Present: normal lung sounds bilaterally. Absent: respiratory distress, wheezes, rales, rhonchi, stridor Cardiovascular Exam: Present: regular rate, normal rhythm, normal heart sounds. Absent: systolic murmur, diastolic murmur, rubs, gallop, clicks GI/Abdominal exam: Present: soft, tenderness (Moderate right sided abdominal tenderness upper and lower), normal bowel sounds. Absent: distended, guarding, rebound, rigid Neurological exam: Present: alert, oriented X3, CN II-XII intact Skin exam: Present: warm, dry, intact, normal color. Absent: rash Course Vital Signs 08/26/20 08/26/20 08:17 09:08 Temperature 96.9 F L Pulse Rate 58 L 50 L Respiratory 18 18 Rate Blood Pressure 107/79 124/74 O2 Sat by Pulse 99 99 Oximetry Medical Decision Making - Medical Decision Making 45-year-old male presented for abdominal pain diarrhea. Patient was scheduled for outpatient CT CT was obtained shows evidence of diarrhea. Patient was it is viral enteritis-type symptoms. Patient advised to increase fluids, follow-up with GI patient was provided Lomotil only if symptoms are persistent unbearable. Return parameters were discussed. - Lab Data Result diagrams: 08/26/20 08:33 08/26/20 08:33 Lab Results 08/26/20 08/26/20 08/26/20 Range/Units 08:33 08:33 08:33 WBC 16.9 H (3.8-10.6) k/uL RBC 5.21 (4.30-5.90) m/uL Hgb 16.1 (13.0-17.5) gm/dL Hct 51.7 (39.0-53.0) % MCV 99.2 (80.0-100.0) fL MCH 30.9 (25.0-35.0) pg MCHC 31.1 (31.0-37.0) g/dL RDW 13.0 (11.5-15.5) % Plt Count 309 (150-450) k/uL Neutrophils % 86 % Lymphocytes % 9 % Monocytes % 3 % Eosinophils % 2 % Basophils % 0 % Neutrophils # 14.6 H (1.3-7.7) k/uL Lymphocytes # 1.5 (1.0-4.8) k/uL Monocytes # 0.5 (0-1.0) k/uL Eosinophils # 0.3 (0-0.7) k/uL Basophils # 0.0 (0-0.2) k/uL Sodium 140 (137-145) mmol/L Potassium 5.1 (3.5-5.1) mmol/L Chloride 107 (98-107) mmol/L Carbon Dioxide 24 (22-30) mmol/L Anion Gap 9 mmol/L BUN 19 (9-20) mg/dL Creatinine 1.03 (0.66-1.25) mg/dL Est GFR (CKD-EPI)AfAm >90 (>60 ml/min/1.73 sqM) Est GFR (CKD-EPI)NonAf 88 (>60 ml/min/1.73 sqM) Glucose 136 H (74-99) mg/dL Plasma Lactic Acid Addi (0.7-2.0) mmol/L Calcium 10.4 H (8.4-10.2) mg/dL Total Bilirubin 0.5 (0.2-1.3) mg/dL AST 29 (17-59) U/L ALT 22 (4-49) U/L Alkaline Phosphatase 109 (38-126) U/L Total Protein 8.9 H (6.3-8.2) g/dL Albumin 5.0 (3.5-5.0) g/dL Lipase 92 (23-300) U/L Urine Color Yellow Urine Appearance Cloudy (Clear) Urine pH 5.0 (5.0-8.0) Ur Specific [place] 1.034 (1.001-1.035) Urine Protein Trace H (Negative) Urine Glucose (UA) Negative (Negative) Urine Ketones Negative (Negative) Urine Blood Negative (Negative) Urine Nitrite Negative (Negative) Urine Bilirubin Negative (Negative) Urine Urobilinogen 2.0 (<2.0) mg/dL Ur Leukocyte Esterase Negative (Negative) Urine RBC 1 (0-5) /hpf Ur Squamous Epith Cells <1 (0-4) /hpf Calcium Oxalate Crystal Many H (None) /hpf Hyaline Casts 8 H (0-2) /lpf Urine Mucus Few H (None) /hpf 16/20 Range/Units 08:33 WBC (3.8-10.6) k/uL RBC (4.30-5.90) m/uL Hgb (13.0-17.5) gm/dL Hct (39.0-53.0) % MCV (80.0-100.0) fL MCH (25.0-35.0) pg MCHC (31.0-37.0) g/dL RDW (11.5-15.5) % Plt Count (150-450) k/uL Neutrophils % % Lymphocytes % % Monocytes % % Eosinophils % % Basophils % % Neutrophils # (1.3-7.7) k/uL Lymphocytes # (1.0-4.8) k/uL Monocytes # (0-1.0) k/uL Eosinophils # (0-0.7) k/uL Basophils # (0-0.2) k/uL Sodium (137-145) mmol/L Potassium (3.5-5.1) mmol/L Chloride (98-107) mmol/L Carbon Dioxide (22-30) mmol/L Anion Gap mmol/L BUN (9-20) mg/dL Creatinine (0.66-1.25) mg/dL Est GFR (CKD-EPI)AfAm (>60 ml/min/1.73 sqM) Est GFR (CKD-EPI)NonAf (>60 ml/min/1.73 sqM) Glucose (74-99) mg/dL Plasma Lactic Acid Addi 1.9 (0.7-2.0) mmol/L Calcium (8.4-10.2) mg/dL Total Bilirubin (0.2-1.3) mg/dL AST (17-59) U/L ALT (4-49) U/L Alkaline Phosphatase (38-126) U/L Total Protein (6.3-8.2) g/dL Albumin (3.5-5.0) g/dL Lipase (23-300) U/L Urine Color Urine Appearance (Clear) Urine pH (5.0-8.0) Ur Specific [place] (1.001-1.035) Urine Protein (Negative) Urine Glucose (UA) (Negative) Urine Ketones (Negative) Urine Blood (Negative) Urine Nitrite (Negative) Urine Bilirubin (Negative) Urine Urobilinogen (<2.0) mg/dL Ur Leukocyte Esterase (Negative) Urine RBC (0-5) /hpf Ur Squamous Epith Cells (0-4) /hpf Calcium Oxalate Crystal (None) /hpf Hyaline Casts (0-2) /lpf Urine Mucus (None) /hpf Disposition Clinical Impression: Abdominal pain, Diarrhea Disposition: HOME SELF-CARE Condition: Stable Instructions (If sedation given, give patient instructions): Abdominal Pain (ED) Additional Instructions: Please return to the Emergency Department if symptoms worsen or any other concerns. Is patient prescribed a controlled substance at d/c from ED?: No Referrals: Luci Najera MD [Primary Care Provider] - 1-2 days Time of Disposition: 10:42
[2020-08-26 08:57] LABS: Basophils % (A) 0 %; Eosinophils # (A) 0.3 k/uL (0-0.7); Eosinophils % (A) 2 %; HCT 51.7 % (39.0-53.0); HGB 16.1 gm/dL (13.0-17.5); Lymphocytes # (A) 1.5 k/uL (1.0-4.8); Lymphocytes % (A) 9 %; MCH 30.9 pg (25.0-35.0); MCHC 31.1 g/dL (31.0-37.0); MCV 99.2 fL (80.0-100.0); Mean Platelet Volume 8.7; Monocytes # (A) 0.5 k/uL (0-1.0); Monocytes % (A) 3 %; Neutrophils # (A) 14.6 k/uL (1.3-7.7); Neutrophils % (A) 86 %; Platelet Count 309 k/uL (150-450); RBC 5.21 m/uL (4.30-5.90); WBC 16.9 k/uL (3.8-10.6)
[2020-08-26 09:01] LABS: ALT 22 U/L (4-49); AST 29 U/L (17-59); African American GFR (CKD) >90 (>60 ml/min/1.73 sqM); Alkaline Phosphatase 109 U/L (38-126); Anion Gap 9 mmol/L; Blood Urea Nitrogen 19 mg/dL (9-20); Calcium 10.4 mg/dL (8.4-10.2); Carbon Dioxide 24 mmol/L (22-30); Chloride 107 mmol/L (98-107); Glucose 136 mg/dL (74-99); Non-African American GFR(CKD) 88 (>60 ml/min/1.73 sqM); Potassium 5.1 mmol/L (3.5-5.1); Sodium 140 mmol/L (137-145); Total Bilirubin 0.5 mg/dL (0.2-1.3); Total Protein 8.9 g/dL (6.3-8.2)
[2020-08-26 09:08] VITALS: BP 124/74; PULSE 50
[2020-08-26 09:37] LABS: Appearance,Urine Cloudy (Clear); Bilirubin,Urine Negative (Negative); Blood,Urine Negative (Negative); Calcium Oxalate Crystals,Urine Many /hpf; Color,Urine Yellow; Glucose,Urine (UA) Negative (Negative); Hyaline Casts,Urine 8 /lpf (0-2); Ketones,Urine Negative (Negative); Leukocyte Esterase,Urine Negative (Negative); Mucus,Urine Few /hpf; Nitrite,Urine Negative (Negative); Protein,Urine Trace (Negative); RBC,Urine 1 /hpf (0-5); Specific Gravity,Urine 1.034 (1.001-1.035); Squamous Epithelial Cell,Urine <1 /hpf (0-4)
--- NOTE | 2020-08-26 09:56 | CT ---
EXAMINATION TYPE: CT abdomen pelvis w con DATE OF EXAM: 08/26/2020 COMPARISON: None. HISTORY: Abd pain CT DLP: 766.8 mGycm Automated exposure control for dose reduction was used. TECHNIQUE: Helical acquisition of images was performed from the lung bases through the pelvis. CONTRAST: Performed without Oral Contrast and with IV Contrast, patient injected with 100 mL of Isovue 300. FINDINGS: LUNG BASES: Heart within upper limits of normal. No pericardial or pleural effusion. LIVER: Multiple too small to characterize hepatic hypodense lesions, statistically likely hepatic cys ts. BILIARY SYSTEM: Normal. PANCREAS: Normal. SPLEEN: Normal. ADRENALS: Normal. KIDNEYS: Normal. BOWEL: No evidence of bowel obstruction or thickening. Fluid within the sigmoid colon and rectum. St omach is distended. PERITONEUM: No free air is visualized. No free fluid. ADENOPATHY: No lymphadenopathy. PELVIS: Nondistended urinary bladder. VASCULATURE: No abdominal aortic aneurysm. 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 IMPRESSION: 1. Fluid within the sigmoid colon and rectum. Recommend correlation for diarrhea. No evidence of bow el inflammation. 2. Distended stomach.
[2020-08-26] MEDS ORDERED: KETOROLAC 15 MG/ML 1 ML VIAL IVP STA (09:57)
[2020-08-26] MEDS ORDERED: DICYCLOMINE 10 MG/ML 2 ML AMP IM STA (09:58)
[2020-08-26] MEDS ORDERED: ONDANSETRON 4 MG ODT STARTER PACK 2 TAB BTL PO STA (10:38)
[2020-08-26] MEDS ORDERED: ACET/COD 300 MG/30 MG STARTER PACK 6 TAB BTL PO STA (10:38)
[2020-08-26] MEDS ORDERED: DIPHENOX-ATROP STARTER PACK 8 TAB BTL PO STA (10:39)
== END 2020-08-26 11:02 | disposition home or self-care (01) ==
LOC: EC 08:16
DX: R10.9 Unspecified abdominal pain (principal); R19.7 Diarrhea, unspecified; K21.9 Gastro-esophageal reflux disease without esophagitis; F17.200 Nicotine dependence, unspecified, uncomplicated; Z79.899 Other long term (current) drug therapy; Z86.14 Personal history of Methicillin resistant Staphylococcus aureus infection
CPT/HCPCS: 36415; 80053; 83605; 83690; 85025; 81001; 74177; 99284; 96372; 96374; 96375 ×2; 96376; 96361; J0500; J2405; J1885; S0119; J1170; Q9967

== ENCOUNTER → 2020-09-01 | Outpatient (CLI) | payer OTHER ==
--- NOTE | 2020-09-01 20:49 | CT ---
EXAMINATION TYPE: CT abdomen pelvis w con DATE OF EXAM: 09/01/2020 COMPARISON: CT 08/26/2020 HISTORY: Abdominal pain. R 63.4, R 53.83, R 19.7, R 68.83 CT DLP: 448.5 mGycm Automated exposure control for dose reduction was used. TECHNIQUE: Helical acquisition of images from the lung bases through the pelvis have been completed. CONTRAST: Performed with Oral Contrast and with IV Contrast, patient injected with 100ml mL of Isovue 300. FINDINGS: LUNG BASES: No significant abnormality is appreciated. AORTA: No significant abnormality is appreciated. LIVER/GB: No significant interval change is appreciated, probable subcentimeter hepatic cysts noted, gallbladder is normal. PANCREAS: No significant abnormality is seen. SPLEEN: No significant abnormality is seen. ADRENALS: No significant abnormality is seen. KIDNEYS: No significant abnormality is seen. Circumaortic left renal vein noted incidentally. REPRODUCTIVE ORGANS: No significant abnormality is seen BOWEL: There are some jejunal loops showing wall thickening, nonspecific. Appendix is unremarkable FREE AIR: No Free Air visible. ASCITES: None visible. PELVIC ADENOPATHY: None visualized. RETROPERITONEAL ADENOPATHY: No Retroperitoneal Adenopathy visible. URINARY BLADDER: No significant abnormality is seen. OSSEOUS STRUCTURES: Bilateral spondylolysis at L5, minimal grade 1 anterolisthesis L5-S1. IMPRESSION: FINDINGS COULD POSSIBLY REPRESENT A NONSPECIFIC ENTERITIS. ADDITIONAL FINDINGS ABOVE.
== END | disposition home or self-care (01) ==
LOC: RADCTMAIN 16:28
PROVIDERS: ATTEND Family Medicine
DX: K63.89 Other specified diseases of intestine (principal)
CPT/HCPCS: 74177; Q9967

== ENCOUNTER → 2020-09-28 | Outpatient (CLI) | payer OTHER ==
--- NOTE | 2020-09-28 19:05 | MR ---
MR brain without contrast HISTORY: R 43, vertigo Multiplanar multisequence images obtained through the brain. Correlation to prior MR brain dated 01/02/2011 There is lobular T2 bright foci within the left maxillary sinus likely due to mucous retention cysts, inflammatory change present in the ethmoid air cells. This mucosal thickening in the right maxillary sinus. Li bullosa is noted on the right. There are normal vascular flow voids. There is no hemor rhage or hydrocephalus. Some artifact is present on the exam. The corpus callosum, pituitary, cervica l medullary junction, cerebellopontine angles are normal. No restricted diffusion to suggest subacute ischemia. The orbits show symmetric appearance. IMPRESSION: Sinus disease. Unremarkable brain MRI.
== END | disposition home or self-care (01) ==
LOC: RADMRIMAIN 16:22
PROVIDERS: ATTEND Family Medicine
DX: R42 Dizziness and giddiness (principal)
CPT/HCPCS: 70551

== ENCOUNTER → 2020-10-13 | Outpatient (CLI) | payer OTHER | END | disposition home or self-care (01) | LOC: LABWHC1 10:49 | PROVIDERS: ATTEND Nurse Practitioner | DX: B18.2 Chronic viral hepatitis C (principal) | CPT/HCPCS: 36415; 87522 ==

== ENCOUNTER → 2021-02-15 | Outpatient (CLI) | payer OTHER | END | disposition home or self-care (01) | LOC: LABWHC1 13:25 | PROVIDERS: ATTEND Family Medicine | DX: Z20.822 Contact with and (suspected) exposure to COVID-19 (principal) | CPT/HCPCS: U0003; C9803 ==

== ENCOUNTER 2021-08-16 12:42 | Emergency (ER) | payer OTHER ==
[2021-08-16] MEDS ORDERED: KETOROLAC 15 MG/ML 1 ML VIAL IM STA (13:01)
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
--- NOTE | 2021-08-16 13:21 | XR ---
EXAMINATION TYPE: XR clavicle LT DATE OF EXAM: 08/16/2021 COMPARISON: None HISTORY: Fall, pain TECHNIQUE: 2 view left clavicle FINDINGS: There is an oblique fracture diaphysis left clavicle. Minimal step-off is present. Acromioc lavicular and sternal clavicular junction appears normal IMPRESSION: 1. Mid diaphyseal left clavicular fracture
--- NOTE | 2021-08-16 13:22 | XR ---
EXAMINATION TYPE: XR chest 2V DATE OF EXAM: 08/16/2021 COMPARISON: NONE HISTORY: Fall injury with left-sided pain TECHNIQUE: Frontal and lateral views of the chest are obtained. FINDINGS: There is no focal air space opacity, pleural effusion, or pneumothorax seen. The cardiac silhouette size is within normal limits. The osseous structures are intact. IMPRESSION: No acute cardiopulmonary process.
--- NOTE | 2021-08-16 13:30 | XR ---
EXAMINATION TYPE: XR shoulder complete LT DATE OF EXAM: 08/16/2021 COMPARISON: NONE HISTORY: Pain TECHNIQUE: Shoulder examined in 3 projections FINDINGS: There is an oblique fracture through the mid diaphysis left clavicle. The humeral head articulates with the glenoid. The acromio-clavicular junction is normal. No additional acute fractures or dislocations are evident. A follow up study can be performed 7-10 days from acute trauma for continued pain. IMPRESSION: 1. Oblique fracture mid diaphysis left clavicle. 2. No suspicious additional fractures within the left shoulder.
[2021-08-16] MEDS ORDERED: ACET/COD 300 MG/30 MG STARTER PACK 6 TAB BTL PO STA (14:02)
[2021-08-16 14:30] VITALS: BP 138/90; PULSE 96; RESP 20; TEMP 98.4
== END 2021-08-16 14:29 | disposition home or self-care (01) ==
LOC: EC 12:42
DX: S42.002A Fracture of unspecified part of left clavicle, initial encounter for closed fracture (principal); F17.200 Nicotine dependence, unspecified, uncomplicated; K21.9 Gastro-esophageal reflux disease without esophagitis; Z79.899 Other long term (current) drug therapy; V18.0XXA Pedal cycle driver injured in noncollision transport accident in nontraffic accident, initial encounter; Y93.55 Activity, bike riding; Y92.89 Other specified places as the place of occurrence of the external cause; Y99.0 Civilian activity done for income or pay
CPT/HCPCS: 73030; 73000; 71046; 99283; 96372; J1885

== ENCOUNTER 2022-06-09 22:32 | Emergency (ER) | payer OTHER ==
[2022-06-09 22:37] VITALS: BP 126/73; PULSE 72; RESP 18; TEMP 98
[2022-06-09] MEDS ORDERED: LIDOCAINE 1% INJ 10MG/ML (5 ML VIAL-PF) SQ ONE (22:37)
[2022-06-09] MEDS ORDERED: TOPICAL SKIN ADHESIVE 1 EACH AMP TOPICAL ONE (22:41)
--- NOTE | 2022-06-09 22:47 | ED ---
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 Patient inadvertently cut his right index finger on a Saturday basket. Since this was a metallic piece of wire in the side of the basket. He denies chance of foreign body. He states it bled quite a bit initially. Patient did wash it. Hemostasis is obtained prior to arrival. Tetanus is up-to-date as of 2016 No headache, no fever or chills, no changes in vision or hearing, no sore throat or difficulty with speech, no neck pain, no chest pain or shortness of breath, no abdominal pain, no nausea or vomiting, no changes in urination or bowel movements, no numbness or tingling, no extremity pain, no skin rashes or lesions. Past medical, surgical, social, and family history reviewed. - Related Data Home Medications Medication Instructions Recorded Confirmed FLUoxetine HCL [PROzac] 10 mg PO DAILY 08/26/20 08/26/20 Famotidine [Pepcid] 20 mg PO HS 08/26/20 08/26/20 Meclizine HCl 25 mg PO BID PRN 08/26/20 08/26/20 Allergies Allergy/AdvReac Type Severity Reaction Status Date / Time No Known Allergies Allergy Verified 06/09/22 22:37 Review of Systems ROS Statement: Those systems with pertinent positive or pertinent negative responses have been documented in the HPI. ROS Other: All systems not noted in ROS Statement are negative. Past Medical History Past Medical History: GERD/Reflux, Osteoarthritis (OA) Additional Past Medical History / Comment(s): back pain, hep c, History of Any Multi-Drug Resistant Organisms: MRSA Date of last positivie culture/infection: 06/14/17 MDRO Source:: LEG Past Surgical History: No Surgical Hx Reported Additional Past Surgical History / Comment(s): Colonoscopy x2 and EGD, I&d right leg Past Psychological History: No Psychological Hx Reported Smoking Status: Current every day smoker Past Alcohol Use History: Occasional Past Drug Use History: Marijuana - Past Family History Mother History Unknown: Yes General Exam - General Exam Comments Initial Comments: Nontoxic appearing male in no acute distress Limitations: no limitations General appearance: alert, in no apparent distress Head exam: Present: atraumatic, normocephalic, normal inspection Eye exam: Present: normal appearance, EOMI Neck exam: Present: normal inspection Respiratory exam: Absent: respiratory distress Cardiovascular Exam: Present: regular rate, normal rhythm, normal heart sounds. Absent: systolic murmur, diastolic murmur, rubs, gallop, clicks GI/Abdominal exam: Present: soft. Absent: tenderness Extremities exam: Present: full ROM, normal capillary refill, other (Very superficial, 2 cm laceration to the distal aspect of the right index finger. No foreign body. No active bleeding. Involves only the dermis.). Absent: tenderness Neurological exam: Present: alert, oriented X3, CN II-XII intact. Absent: motor sensory deficit Psychiatric exam: Present: normal affect, normal mood Skin exam: Present: warm, dry, normal color. Absent: intact, rash, cyanosis, diaphoretic Course Vital Signs 06/09/22 22:34 Temperature 98 F Pulse Rate 72 Respiratory 18 Rate Blood Pressure 126/73 O2 Sat by Pulse 98 Oximetry Procedures - Laceration Laceration #1 Consent Obtained: verbal consent Indication: laceration Site: upper extremity (Right index finger) Size (cm): 2 Description: flap Depth: simple, single layer Pre-repair: wound explored, irrigated extensively, deep structures intact Type of Sutures: other (Tissue adhesive) Patient Tolerated Procedure: well, no complications Medical Decision Making - Medical Decision Making Patient counseled on wound care. Counseled on signs and symptoms of infection. Return parameters discussed. All questions answered Patient was told to return to the ER for any signs or symptoms worsen. Told to return immediately if any other problems arise. All questions answered. Treatment plan discussed. Patient in agreement Every effort has been made to ensure accuracy of this dictation. However, due to the limitations of electronic medical records and dictation devices, errors in charting still occur. Trimming Press Operator Dr. Irene Disposition Clinical Impression: Laceration of right index finger without foreign body Disposition: HOME SELF-CARE Condition: Good Instructions (If sedation given, give patient instructions): Skin Adhesive Care (ED) Additional Instructions: Follow-up with your regular physician as directed. Return to the ER immediately if any symptoms worsen, new symptoms arise, or any other problems develop. Is patient prescribed a controlled substance at d/c from ED?: No Referrals: Luci Najera MD [Primary Care Provider] - 1-2 days (If needed) Time of Disposition: 22:57
== END 2022-06-09 23:03 | disposition home or self-care (01) ==
LOC: EC 22:32
DX: S61.210A Laceration without foreign body of right index finger without damage to nail, initial encounter (principal); F17.200 Nicotine dependence, unspecified, uncomplicated; W26.8XXA Contact with other sharp object(s), not elsewhere classified, initial encounter; Y92.511 Restaurant or cafe as the place of occurrence of the external cause; Y99.0 Civilian activity done for income or pay
CPT/HCPCS: 99282; 12001; J2001

== ENCOUNTER 2024-06-12 14:05 | Emergency (ER) | payer OTHER ==
--- NOTE | 2024-06-12 14:23 | ED ---
Syncope HPI - General Chief Complaint: Syncope Stated Complaint: Syncope Time Seen by Provider: 06/12/24 14:21 Source: patient, RN notes reviewed Mode of arrival: EMS Limitations: no limitations - History of Present Illness Initial Comments: This is a 49-year-old male who presents to the emergency department for a syncopal episode. States that he was sitting on his lawnmower when this happened and he started to feel very lightheaded. He got off of the lawnmower and lowered himself to the ground. States that he had a syncopal episode and was out for approximately 30 seconds. Denies any chest pain or shortness of breath before hand or currently. He was initially feeling fairly weak with lower abdominal pain. The weakness has improved however he is still having abdominal pain. This has happened to him in the past and he states that he is unsure why. MD Complaint: loss of consciousness - Related Data Home Medications Medication Instructions Recorded Confirmed Famotidine [Pepcid] 20 mg PO HS 08/26/20 06/12/24 hydrOXYzine HCL [Hydroxyzine HCl] 25 mg PO HS PRN 06/12/24 06/12/24 Allergies Allergy/AdvReac Type Severity Reaction Status Date / Time No Known Allergies Allergy Verified 06/12/24 16:08 Review of Systems ROS Statement: Those systems with pertinent positive or pertinent negative responses have been documented in the HPI. ROS Other: All systems not noted in ROS Statement are negative. Past Medical History Past Medical History: GERD/Reflux, Osteoarthritis (OA) Additional Past Medical History / Comment(s): back pain, hep c, History of Any Multi-Drug Resistant Organisms: MRSA Date of last positivie culture/infection: 06/14/17 MDRO Source:: LEG Past Surgical History: No Surgical Hx Reported Additional Past Surgical History / Comment(s): Colonoscopy x2 and EGD, I&d right leg Past Psychological History: No Psychological Hx Reported Smoking Status: Current every day smoker Past Alcohol Use History: Occasional Past Drug Use History: Marijuana - Past Family History Mother History Unknown: Yes General Exam Limitations: no limitations General appearance: alert, in no apparent distress Head exam: Present: atraumatic, normocephalic, normal inspection Respiratory exam: Present: normal lung sounds bilaterally. Absent: respiratory distress, wheezes, rales, rhonchi, stridor Cardiovascular Exam: Present: regular rate, normal rhythm, normal heart sounds. Absent: systolic murmur, diastolic murmur, rubs, gallop, clicks GI/Abdominal exam: Present: soft, tenderness (generalized), normal bowel sounds. Absent: distended Neurological exam: Present: alert, oriented X3, CN II-XII intact Psychiatric exam: Present: normal affect, normal mood Skin exam: Present: warm, dry, intact, normal color. Absent: rash Course Vital Signs 06/12/24 06/12/24 06/12/24 14:24 16:50 18:37 Temperature 97.5 F L 97.9 F Pulse Rate 68 51 L 65 Respiratory 16 18 18 Rate Blood Pressure 98/63 100/64 120/81 O2 Sat by Pulse 97 99 97 Oximetry Medical Decision Making - Medical Decision Making This is a 49 year old male who presents to the emergency department for a syncopal episode. Was pt. sent in by a medical professional or institution? @ -No Did you speak to anyone other than the patient for history? @ -No Did you review nursing and triage notes? @ -Yes, and I agree, it is accurate with regards to the patient's symptoms. Were old charts reviewed? @ -No Differential Diagnosis? @ -Differential Syncope: Valvular disease, hypertrophic cardiomyopathy, pulmonary embolism, tamponade, tachycardia, bradycardia, AR, hypovolemia, hemorrhage, dissection, anemia, intracranial hemorrhage, seizure, hypoglycemia, carbon monoxide poisoning, this is not meant to be an all-inclusive list. EKG interpreted by me (3pts min.)? @ -EKG interpreted by me demonstrating the following: Sinus rhythm. Ventricular rate 61 bpm, NC interval 148 ms, QRS duration 92 ms, QTc 436 ms. X-rays interpreted by me (1pt min.)? @ -Chest x-ray obtained, my interpretation identifies no localized consolidatio ns or infiltrates. CT interpreted by me (1pt min.)? @ -CTA of the chest obtained. My interpretation identifies no evidence of a pulmonary embolus. CT scan of the abdomen and pelvis obtained. My interpretation identifies no dilation of large or small bowel loops. U/S interpreted by me (1pt. min.)? @ -Not obtained What testing was considered but not performed? (CT, X-rays, U/S, labs)? Why? @ -None What meds were considered but not given? Why? @ -None Did you discuss the management of the patient with other professionals? @ -No Did you reconcile home meds? @ -No Was smoking cessation discussed for >3mins.? @ -I discussed smoking cessation for greater than 3 minutes. The risk of smoking were discussed with the patient including but not limited to risks of cancer, stroke, coronary artery disease and COPD. Also discussed with patient were multiple methods of quitting smoking. Lastly we discussed the financial cost of smoking. Was critical care preformed (if so, how long)? @ -No Were there social determinants of health that impacted care today? How? (Homelessness, low income, unemployed, alcoholism, drug addiction, transportation, low edu. Level, literacy, decrease access to med. care, care home, rehab)? @ -No Was there de-escalation of care discussed even if they declined? (Discuss DNR or withdrawal of care, Hospice)? @ -No What co-morbidities impacted this encounter? (DM, HTN, Smoking, COPD, CAD, Cancer, CVA, Hep., AIDS, mental health diagnosis, sleep apnea, morbid obesity)? @ -Smoking Was patient admitted / discharged? @ -Discharged. Lab work demonstrates an elevated D-dimer of 0.67. Lab work was otherwise unremarkable. Urinalysis negative for signs of infection. Urine drug screen positive for multiple substances. Chest x-ray reveals no acute process. Given the elevated D-dimer, CTA of the chest was obtained. There was diffuse bronchial wall thickening suggestive of bronchitis or asthma as well as a mildly enlarged hilar lymph node that is thought to be reactive. He may need a 6-month follow-up CT for reevaluation. Given the abdominal pain, we did also obtain a CT scan of the abdomen and pelvis. This revealed prominent ingested material in the stomach without other acute process aside from mild circumferential bladder wall thickening. Patient's pain was well-managed in the emergency department. Symptoms had also essentially resolved in terms of weakness and pain and the patient requested discharge home at that time. He was given strict return parameters and advised to have close follow-up with his PCP. Case discussed with ED attending Dr. Cisse. Return precautions reviewed in depth, the patient is instructed to return to the emergency department with any new, worsening, or concerning symptoms. Patient verbalized understanding. Undiagnosed new problem with uncertain prognosis? No evidence of a pulmonary embolus was identified. @ -None Drug Therapy requiring intensive monitoring for toxicity (Heparin, Nitro, Insulin, Cardizem)? @ -None Were any procedures done? @ -None Diagnosis/symptom? @ -Syncope, abdominal pain Acute, or Chronic, or Acute on Chronic? @ -Acute Uncomplicated (without systemic symptoms) or Complicated (systemic symptoms)? @ -Uncomplicated Side effects of treatment? @ -None Exacerbation, Progression, or Severe Exacerbation] @ -Not applicable Poses a threat to life or bodily function? @ -No - Lab Data Result diagrams: 06/12/24 15:04 06/12/24 15:04 Lab Results 06/12/24 06/12/24 06/12/24 Range/Units 15: 15: 15:04 WBC 7.8 (3.8-10.6) k/uL RBC 4.74 (4.30-5.90) m/uL Hgb 14.6 (13.0-17.5) gm/dL Hct 44.4 (39.0-53.0) % MCV 93.6 (80.0-100.0) fL MCH 30.9 (25.0-35.0) pg MCHC 33.0 (31.0-37.0) g/dL RDW 12.8 (11.5-15.5) % Plt Count 247 (150-450) k/uL MPV 9.4 Neutrophils % 71 % Lymphocytes % 20 % Monocytes % 5 % Eosinophils % 3 % Basophils % 1 % Neutrophils # 5.6 (1.3-7.7) k/uL Lymphocytes # 1.6 (1.0-4.8) k/uL Monocytes # 0.4 (0-1.0) k/uL Eosinophils # 0.2 (0-0.7) k/uL Basophils # 0.0 (0-0.2) k/uL PT 10.9 (10.0-12.5) sec INR 1.0 (<1.2) APTT 24.3 (22.0-30.0) sec D-Dimer 0.67 H (<0.60) mg/L FEU Sodium (137-145) mmol/L Potassium (3.5-5.1) mmol/L Chloride (98-107) mmol/L Carbon Dioxide (22-30) mmol/L Anion Gap mmol/L BUN (9-20) mg/dL Creatinine (0.66-1.25) mg/dL Est GFR (CKD-EPI)AfAm (>60 ml/min/1.73 sqM) Est GFR (CKD-EPI)NonAf (>60 ml/min/1.73 sqM) Glucose (74-99) mg/dL Calcium (8.4-10.2) mg/dL Magnesium (1.6-2.3) mg/dL Total Bilirubin (0.2-1.3) mg/dL AST (17-59) U/L ALT (4-49) U/L Alkaline Phosphatase (38-126) U/L Troponin I (0.000-0.034) ng/mL Total Protein (6.3-8.2) g/dL Albumin (3.5-5.0) g/dL Urine Color Yellow Urine Appearance Clear (Clear) Urine pH 5.5 (5.0-8.0) Ur Specific [place] 1.021 (1.001-1.035) Urine Protein Trace H (Negative) Urine Glucose (UA) Negative (Negative) Urine Ketones Negative (Negative) Urine Blood Negative (Negative) Urine Nitrite Negative (Negative) Urine Bilirubin Negative (Negative) Urine Urobilinogen <2.0 (<2.0) mg/dL Ur Leukocyte Esterase Negative (Negative) Urine Opiates Screen Not Detected (NotDetected) Ur Oxycodone Screen Not Detected (NotDetected) Urine Methadone Screen Not Detected (NotDetected) Ur Barbiturates Screen Detected H (NotDetected) U Tricyclic Antidepress Not Detected (NotDetected) Ur Phencyclidine Scrn Not Detected (NotDetected) Ur Amphetamines Screen Not Detected (NotDetected) U Methamphetamines Scrn Detected H (NotDetected) U Benzodiazepines Scrn Not Detected (NotDetected) Urine Cocaine Screen Detected H (NotDetected) U Marijuana (THC) Screen Detected H (NotDetected) 06/12/24 06/12/24 Range/Units 15:04 15:04 WBC (3.8-10.6) k/uL RBC (4.30-5.90) m/uL Hgb (13.0-17.5) gm/dL Hct (39.0-53.0) % MCV (80.0-100.0) fL MCH (25.0-35.0) pg MCHC (31.0-37.0) g/dL RDW (11.5-15.5) % Plt Count (150-450) k/uL MPV Neutrophils % % Lymphocytes % % Monocytes % % Eosinophils % % Basophils % % Neutrophils # (1.3-7.7) k/uL Lymphocytes # (1.0-4.8) k/uL Monocytes # (0-1.0) k/uL Eosinophils # (0-0.7) k/uL Basophils # (0-0.2) k/uL PT (10.0-12.5) sec INR (<1.2) APTT (22.0-30.0) sec D-Dimer (<0.60) mg/L FEU Sodium 138 (137-145) mmol/L Potassium 4.5 (3.5-5.1) mmol/L Chloride 111 H (98-107) mmol/L Carbon Dioxide 20 L (22-30) mmol/L Anion Gap 7 mmol/L BUN 20 (9-20) mg/dL Creatinine 0.98 (0.66-1.25) mg/dL Est GFR (CKD-EPI)AfAm >90 (>60 ml/min/1.73 sqM) Est GFR (CKD-EPI)NonAf >90 (>60 ml/min/1.73 sqM) Glucose 126 H (74-99) mg/dL Calcium 8.8 (8.4-10.2) mg/dL Magnesium 1.7 (1.6-2.3) mg/dL Total Bilirubin 0.7 (0.2-1.3) mg/dL AST 31 (17-59) U/L ALT 14 (4-49) U/L Alkaline Phosphatase 67 (38-126) U/L Troponin I 0.018 (0.000-0.034) ng/mL Total Protein 6.8 (6.3-8.2) g/dL Albumin 3.9 (3.5-5.0) g/dL Urine Color Urine Appearance (Clear) Urine pH (5.0-8.0) Ur Specific [place] (1.001-1.035) Urine Protein (Negative) Urine Glucose (UA) (Negative) Urine Ketones (Negative) Urine Blood (Negative) Urine Nitrite (Negative) Urine Bilirubin (Negative) Urine Urobilinogen (<2.0) mg/dL Ur Leukocyte Esterase (Negative) Urine Opiates Screen (NotDetected) Ur Oxycodone Screen (NotDetected) Urine Methadone Screen (NotDetected) Ur Barbiturates Screen (NotDetected) U Tricyclic Antidepress (NotDetected) Ur Phencyclidine Scrn (NotDetected) Ur Amphetamines Screen (NotDetected) U Methamphetamines Scrn (NotDetected) U Benzodiazepines Scrn (NotDetected) Urine Cocaine Screen (NotDetected) U Marijuana (THC) Screen (NotDetected) - Radiology Data Radiology results: report reviewed, image reviewed Disposition Clinical Impression: Syncope, Abdominal pain, Nicotine dependence Disposition: HOME SELF-CARE Instructions (If sedation given, give patient instructions): Syncope (ED), Abdominal Pain (ED) Additional Instructions: Return to the emergency department with any new, worsening, or concerning symptoms. Follow up with your primary care provider in 1-2 days. Is patient prescribed a controlled substance at d/c from ED?: No Referrals: Luci Najera MD [Primary Care Provider] - 1-2 days Time of Disposition: 18:00
[2024-06-12 15:23] LABS: Appearance,Urine Clear (Clear); Bilirubin,Urine Negative (Negative); Blood,Urine Negative (Negative); Color,Urine Yellow; Glucose,Urine (UA) Negative (Negative); Ketones,Urine Negative (Negative); Leukocyte Esterase,Urine Negative (Negative); Nitrite,Urine Negative (Negative); PH, Urine 5.5 (5.0-8.0); Protein,Urine Trace (Negative); Specific Gravity,Urine 1.021 (1.001-1.035); Urobilinogen,Urine <2.0 mg/dL (<2.0)
[2024-06-12] MEDS: SODIUM CHLORIDE 0.9% 1,000 ML IV STA (15:26)
[2024-06-12] MEDS: KETOROLAC 15 MG/ML 1 ML VIAL IVP STA (15:42)
[2024-06-12 15:43] LABS: Basophils % (A) 1 %; Eosinophils # (A) 0.2 k/uL (0-0.7); Eosinophils % (A) 3 %; HCT 44.4 % (39.0-53.0); HGB 14.6 gm/dL (13.0-17.5); Lymphocytes # (A) 1.6 k/uL (1.0-4.8); Lymphocytes % (A) 20 %; MCH 30.9 pg (25.0-35.0); MCV 93.6 fL (80.0-100.0); Mean Platelet Volume 9.4; Monocytes # (A) 0.4 k/uL (0-1.0); Monocytes % (A) 5 %; Neutrophils # (A) 5.6 k/uL (1.3-7.7); Neutrophils % (A) 71 %; Platelet Count 247 k/uL (150-450); RBC 4.74 m/uL (4.30-5.90); RDW 12.8 % (11.5-15.5); WBC 7.8 k/uL (3.8-10.6)
[2024-06-12] MEDS: MORPHINE SULFATE 4 MG/ML SYRINGE IVP STA (15:43)
[2024-06-12 15:46] LABS: ALT 14 U/L (4-49); AST 31 U/L (17-59); African American GFR (CKD) >90 (>60 ml/min/1.73 sqM); Albumin 3.9 g/dL (3.5-5.0); Alkaline Phosphatase 67 U/L (38-126); Anion Gap 7 mmol/L; Blood Urea Nitrogen 20 mg/dL (9-20); Calcium 8.8 mg/dL (8.4-10.2); Carbon Dioxide 20 mmol/L (22-30); Chloride 111 mmol/L (98-107); Glucose 126 mg/dL (74-99); Magnesium 1.7 mg/dL (1.6-2.3); Non-African American GFR(CKD) >90 (>60 ml/min/1.73 sqM); Sodium 138 mmol/L (137-145); Total Bilirubin 0.7 mg/dL (0.2-1.3); Total Protein 6.8 g/dL (6.3-8.2)
[2024-06-12 15:59] LABS: Potassium 4.5 mmol/L (3.5-5.1)
[2024-06-12 16:03] LABS: Amphetamine Screen,Urine Not Detected (NotDetected); Barbiturate Screen,Urine Detected (NotDetected); Benzodiazepines Screen,Urine Not Detected (NotDetected); Cocaine Screen,Urine Detected (NotDetected); Methadone Screen, Urine Not Detected (NotDetected); Opiate Screen,Urine Not Detected (NotDetected); Oxycodone Screen, Urine Not Detected (NotDetected); Phencyclidine Screen,Urine Not Detected (NotDetected); Tricyclic Antidepressant,Urine Not Detected (NotDetected); Urn Cannabinoid Scrn Detected (NotDetected)
[2024-06-12 16:04] LABS: Partial Thromboplastin Time 24.3 sec (22.0-30.0)
[2024-06-12 16:38] LABS: Prothrombin Time 10.9 sec (10.0-12.5)
[2024-06-12 16:48] VITALS: RESP 18; TEMP 97.9
[2024-06-12] MEDS ORDERED: SODIUM CHLORIDE 0.9% 1,000 ML IV ONE (16:50)
[2024-06-12] MEDS: HYDROmorphone 1 MG/ML 1 ML SYRINGE IVP STA (16:52)
--- NOTE | 2024-06-12 17:31 | CT ---
EXAMINATION TYPE: CT chest angio for PE DATE OF EXAM: 06/12/2024 COMPARISON: Radiograph 06/12/2024 HISTORY: 49-year-old male syncope, Elevated D-dimer. TECHNIQUE: Contiguous axial scanning of the chest performed with IV Contrast, patient injected with 1 00 mL of Isovue 370. Coronal and sagittal MIP reconstructions performed. CT DLP: 285.3 mGycm Automated exposure control for dose reduction was used. FINDINGS: The heart is normal size without pericardial effusion. No flattening of the interventricular septum o r reflux of contrast into the hepatic veins. Mild LAD coronary artery calcifications are present. Aorta normal caliber with conventional branching anatomy. A few nonenlarged mediastinal lymph nodes. Mildly enlarged 1.4 cm right hilar lymph node. Otherwise, no thoracic lymphadenopathy by CT size criteria. Satisfactory opacification of pulmonary system without evidence for pulmonary embolus. Mild diffuse bronchial wall thickening. No consolidation or pleural effusion. Abdomen reported separately. Mild degenerative disc disease mid to lower thoracic spine. IMPRESSION: 1. NO EVIDENCE FOR PULMONARY EMBOLUS. 2. MILD DIFFUSE BRONCHIAL WALL THICKENING COULD REFLECT BRONCHITIS OR ASTHMA. 3. MILDLY ENLARGED 1.4 CM RIGHT HILAR LYMPH NODE PROBABLY REACTIVE/POST INFLAMMATORY. CONSIDER SIX-MO NTH FOLLOW-UP CT TO ENSURE STABILITY/RESOLUTION.
--- NOTE | 2024-06-12 17:36 | CT ---
EXAMINATION TYPE: CT abdomen pelvis w con DATE OF EXAM: 06/12/2024 COMPARISON: 09/01/2020 HISTORY: 49-year-old male abdominal pain TECHNIQUE: Contiguous axial scanning of the abdomen and pelvis following administration of 100 ml Iso gokul 300 IV contrast. Delayed images through the kidneys and coronal/sagittal reconstructions perform ed. CT DLP: 793.1 mGycm Automated exposure control for dose reduction was used. FINDINGS: Chest reported separately. Scattered tiny hepatic cysts measuring up to 5 mm. Portal venous system is patent. No biliary duct di latation. Gallbladder, adrenal glands, kidneys, spleen, and pancreas show no gross value. No dilated small bowel, free fluid, or free air. Some prominent fluid-filled small bowel loops in the lower abdomen. No mesenteric or retroperitoneal lymphadenopathy. Prominent ingested material within the stomach. Normal appendix. Mild stool burning. Some scattered s igmoid diverticulosis. No pericolonic inflammatory change. Mild circumferential bladder wall thickening. No abnormal fluid collection in the pelvis or pelvic ly mphadenopathy. Bones: Bilateral L5 pars defects with grade 1 anterolisthesis at L5-S1. Finding present on the patien t's prior study as well. IMPRESSION: 1. PROMINENT INGESTED MATERIAL WITHIN THE STOMACH. SOME SCATTERED SIGMOID DIVERTICULOSIS WITHOUT EVID ENCE FOR ACUTE DIVERTICULITIS. 2. MILD CIRCUMFERENTIAL BLADDER WALL THICKENING MAY BE CHRONIC FOR THE PATIENT. CORRELATE TO EXCLUDE CYSTITIS. 3. Bilateral L5 pars defects with grade 1 anterolisthesis L5-S1.
[2024-06-12 18:38] VITALS: BP 120/81; PULSE 65
--- NOTE | 2024-08-11 10:53 | XR ---
EXAMINATION TYPE: XR chest 2V DATE OF EXAM: 06/12/2024 COMPARISON: 08/16/2021 HISTORY: 49-year-old male with syncope TECHNIQUE: PA and lateral views FINDINGS: Heart normal size. Aorta and pulmonary vasculature within normal limits. Mild central peribronchial c uffing is noted without consolidation or pleural effusion. IMPRESSION: Mild central peribronchial cuffing may reflect bronchitis or asthma. Otherwise, no acute process seen .
== END 2024-06-12 18:38 | disposition home or self-care (01) ==
LOC: EC 14:05
CPT/HCPCS: 36415; 71046; 71275; 74177; 80053; 80306; 81003; 83735; 84484; 85025; 85379; 85610; 85730; 93005; 96361; 96374; 96375; 99285; 99406

== ENCOUNTER → 2025-01-11 | Outpatient (CLI) | payer OTHER ==
--- NOTE | 2025-01-11 08:53 | CT ---
EXAMINATION TYPE: CT chest w con DATE OF EXAM: 01/11/2025 COMPARISON: 06/12/2024 CLINICAL INDICATION: Male, 49 years old with history of R59.0 LOCALIZED ENLARGED LYMPH NODES; PHH, en larged lymph nodes TECHNIQUE: CT scan of the chest is performed with IV Contrast, patient injected with 100 ml mL of Isovue 300. M IP Images are created on CT scanner and reviewed. 3D reconstructed images are created on an [employer] workstation and reviewed. CT DLP: 313.[address] CTDI: mGy Automated exposure control for dose reduction was used. FINDINGS: LUNGS: The lungs are grossly clear, there is no concerning parenchymal mass or nodule identified. T here is no pleural effusion or pneumothorax seen. The tracheobronchial tree is patent. MEDIASTINUM: There are no greater than 1 cm hilar or mediastinal lymph nodes. No pericardial effusi on is seen. Moderate fixed hiatal hernia redemonstrated. OTHER: No additional significant abnormality is seen. IMPRESSION: No evidence for adenopathy at this time. The lungs are clear. Fixed hiatal hernia is not ed. Follow-up recommendations for incidental pulmonary nodules are per [employer] or [employer]. [facility], , 01/11/2025 8:50 AM
== END | disposition home or self-care (01) ==
LOC: RADCTMAIN 08:25
PROVIDERS: ATTEND Family Medicine
DX: K44.9 Diaphragmatic hernia without obstruction or gangrene (principal); R59.0 Localized enlarged lymph nodes
CPT/HCPCS: 71260; Q9967